=== PATIENT | female | born 1960 | race Caucasian/White ===

== ENCOUNTER 2017-06-19 09:27 | Observation (INO) | payer MEDICARE, OTHER ==
[2017-06-19] MEDS ORDERED: ONDANSETRON 4 MG/2 ML VIAL IM STA (09:50)
--- NOTE | 2017-06-19 09:53 | ED ---
General Adult HPI - General Chief complaint: Psychiatric Symptoms Stated complaint: Anxiety, JOSEPH Time Seen by Provider: 06/19/17 09:35 Source: EMS, RN notes reviewed Mode of arrival: EMS Limitations: no limitations - History of Present Illness Initial comments: This is a 57 her old female presents emergency Department stating she's having suicidal ideations but is not suicidal. Patient states she is very nauseated and she believes secondary to the fact that she thinks someone is poisoning her apartment with some noxious smell. Patient states she has not vomited. Patient denies any pain. Patient denies any headache patient denies lightheadedness dizziness or near syncopal episode. Patient denies any difficulty breathing [place] of breath. Patient denies any recent fever chills or cough. - Related Data Home Medications Medication Instructions Recorded Confirmed Copper 1 tab PO HS 09/20/15 06/19/17 Citalopram Hydrobromide [CeleXA] 40 mg PO DAILY 06/19/17 06/19/17 Gabapentin 900 mg PO QID 06/19/17 06/19/17 carBAMazepine 200 mg PO BID 06/19/17 06/19/17 Allergies Allergy/AdvReac Type Severity Reaction Status Date / Time No Known Allergies Allergy Verified 06/19/17 10:37 Review of Systems ROS Statement: Those systems with pertinent positive or pertinent negative responses have been documented in the HPI. ROS Other: All systems not noted in ROS Statement are negative. Past Medical History Past Medical History: No Reported History Additional Past Medical History / Comment(s): DEGENERATIVE DISC DISEASE (LUMBAR ) WITH PAIN IN HER LEGS & WEAKNESS. WHEELCHAIR BOUND, CAN TRANSFER. History of Any Multi-Drug Resistant Organisms: None Reported Past Surgical History: Cholecystectomy, Hysterectomy, Orthopedic Surgery Additional Past Surgical History / Comment(s): Stomach ulcer surg x 2. Lt ACL replaced, PATIENT STATES BOTH ACL ARE "BLOWN OUT" FROM FALLS SHE HAS HAD. Past Anesthesia/Blood Transfusion Reactions: No Reported Reaction Past Psychological History: Anxiety, Depression Smoking Status: Former smoker Past Alcohol Use History: None Reported Past Drug Use History: None Reported - Past Family History Mother Family Medical History: No Reported History General Exam - General Exam Comments Initial Comments: GENERAL: Patient is well-developed and well-nourished. Patient is nontoxic and well- hydrated and is in no acute distress. ENT: Neck is soft and supple. No significant lymphadenopathy is noted. Oropharynx is clear. Moist mucous membranes. Neck has full range of motion without eliciting any pain. EYES: The sclera were anicteric and conjunctiva were pink and moist. Extraocular movements were intact and pupils were equal round and reactive to light. Eyelids were unremarkable. PULMONARY: Unlabored respirations. Good breath sounds bilaterally. No audible rales rhonchi or wheezing was noted. CARDIOVASCULAR: There is a regular rate and rhythm without any murmurs gallops or rubs. ABDOMEN: Soft and nontender with normal bowel sounds. No palpable organomegaly was noted. There is no palpable pulsatile mass. SKIN: Skin is clear with no lesions or rashes and otherwise unremarkable. NEUROLOGIC: Patient is alert and oriented x3. Cranial nerves II through XII are grossly intact. MUSCULOSKELETAL: Normal extremities with adequate strength and full range of motion. No lower extremity swelling or edema. No calf tenderness. LYMPHATICS: No significant lymphadenopathy is noted PSYCHIATRIC: Patient is very flat affect and she is tearful throughout the interview. Patient also states she is having suicidal thoughts but has had those for years. Patient denies any plan patient denies being suicidal. Limitations: no limitations Course Vital Signs 06/19/17 09:34 Temperature 97.8 F Pulse Rate 72 Respiratory 18 Rate Blood Pressure 126/69 O2 Sat by Pulse 100 Oximetry Medical Decision Making - Medical Decision Making Labs are drawn because the patient was going to be transferred to a psychiatric facility. Patient's labs came back with a low hemoglobin and no previous paperwork stated she was anemic we got a hemoglobin from the [facility] in October in the patient's hemoglobin was 12.1. Because of this loss of blood we are going to admit the patient and consult to psychiatry - Lab Data Result diagrams: 06/19/17 12:03 06/19/17 12:03 Lab Results 06/19/17 06/19/17 Range/Units 12:03 12:03 WBC 7.4 (3.8-10.6) k/uL RBC 4.04 (3.80-5.40) m/uL Hgb 7.5 L (11.4-16.0) gm/dL Hct 26.9 L (34.0-46.0) % MCV 66.6 L (80.0-100.0) fL MCH 18.5 L (25.0-35.0) pg MCHC 27.8 L (31.0-37.0) g/dL RDW 19.2 H (11.5-15.5) % Plt Count 467 H (150-450) k/uL Neutrophils % 51 % Lymphocytes % 39 % Monocytes % 5 % Eosinophils % 1 % Basophils % 1 % Neutrophils # 3.7 (1.3-7.7) k/uL Lymphocytes # 2.9 (1.0-4.8) k/uL Monocytes # 0.4 (0-1.0) k/uL Eosinophils # 0.1 (0-0.7) k/uL Basophils # 0.1 (0-0.2) k/uL Manual Slide Review Performed Polychromasia Present Hypochromasia Marked Poikilocytosis Slight Anisocytosis Slight Microcytosis Marked Sodium 139 (137-145) mmol/L Potassium 4.0 (3.5-5.1) mmol/L Chloride 109 H (98-107) mmol/L Carbon Dioxide 23 (22-30) mmol/L Anion Gap 7 mmol/L BUN 6 L (7-17) mg/dL Creatinine 0.50 L (0.52-1.04) mg/dL Est GFR (MDRD) Af Amer >60 (>60 ml/min/1.73 sqM) Est GFR (MDRD) Non-Af >60 (>60 ml/min/1.73 sqM) Glucose 102 H (74-99) mg/dL Calcium 8.5 (8.4-10.2) mg/dL Total Bilirubin <0.1 L (0.2-1.3) mg/dL AST 17 (14-36) U/L ALT 27 (9-52) U/L Alkaline Phosphatase 180 H (38-126) U/L Total Protein 5.4 L (6.3-8.2) g/dL Albumin 3.1 L (3.5-5.0) g/dL Disposition Clinical Impression: Suicidal ideation, Depression, Anemia Disposition: ADMITTED IP TO THIS HOSP Referrals: Krystal Villagran MD [REFERRING] - 1-2 days Time of Disposition: 14:38
[2017-06-19] MEDS ORDERED: ACETAMINOPHEN TAB 325 MG TAB PO STA (11:24)
[2017-06-19 12:27] LABS: Anisocytosis Slight; Basophils # (A) 0.1 k/uL (0-0.2); Basophils % (A) 1 %; CH 17.9; Eosinophils # (A) 0.1 k/uL (0-0.7); Eosinophils % (A) 1 %; HCT 26.9 % (34.0-46.0); HDW 3.86; HGB 7.5 gm/dL (11.4-16.0); Hypochromasia Marked; Luc # (Auto) 0.23; Luc % (Auto) 3; Lymphocytes # (A) 2.9 k/uL (1.0-4.8); Lymphocytes % (A) 39 %; MCH 18.5 pg (25.0-35.0); MCHC 27.8 g/dL (31.0-37.0); MCV 66.6 fL (80.0-100.0); Mean Platelet Volume 7.3; Microcytosis Marked; Monocytes # (A) 0.4 k/uL (0-1.0); Monocytes % (A) 5 %; Neutrophils # (A) 3.7 k/uL (1.3-7.7); Neutrophils % (A) 51 %; Poikilocytosis Slight; RBC 4.04 m/uL (3.80-5.40); RDW 19.2 % (11.5-15.5); WBC 7.4 k/uL (3.8-10.6); WBC (Perox) 7.69
[2017-06-19 12:39] LABS: Manual Review Performed
[2017-06-19 12:41] LABS: Polychromasia Present
[2017-06-19 13:17] LABS: ALT 27 U/L (9-52); AST 17 U/L (14-36); Alkaline Phosphatase 180 U/L (38-126); Anion Gap 7 mmol/L; Blood Urea Nitrogen 6 mg/dL (7-17); Calcium 8.5 mg/dL (8.4-10.2); Carbon Dioxide 23 mmol/L (22-30); Chloride 109 mmol/L (98-107); Glucose 102 mg/dL (74-99); Non-African American GFR(MDRD) >60 (>60 ml/min/1.73 sqM); Sodium 139 mmol/L (137-145); Total Bilirubin <0.1 mg/dL (0.2-1.3); Total Protein 5.4 g/dL (6.3-8.2)
[2017-06-19] MEDS ORDERED: SODIUM CHLORIDE 0.9% 1,000 ML IV ONE (14:41)
[2017-06-19] MEDS ORDERED: ONDANSETRON 4 MG/2 ML VIAL IVP STA (14:44)
[2017-06-19] MEDS ORDERED: traMADol 50 MG TAB PO STA (15:15)
[2017-06-19] MEDS: GABAPENTIN 300 MG CAP PO SCH (21:42)
[2017-06-19] MEDS: carBAMazepine 200 MG TAB PO SCH (21:44)
[2017-06-19] MEDS: ONDANSETRON 4 MG/2 ML VIAL IVP PRN (22:14)
[2017-06-20] MEDS: ONDANSETRON 4 MG/2 ML VIAL IVP PRN (05:23)
[2017-06-20 08:08] LABS: Anion Gap 6 mmol/L; Blood Urea Nitrogen 5 mg/dL (7-17); Calcium 8.1 mg/dL (8.4-10.2); Carbon Dioxide 24 mmol/L (22-30); Chloride 110 mmol/L (98-107); Glucose 98 mg/dL (74-99); Non-African American GFR(MDRD) >60 (>60 ml/min/1.73 sqM); Potassium 4.1 mmol/L (3.5-5.1); Sodium 140 mmol/L (137-145)
[2017-06-20 08:22] LABS: Anisocytosis Slight; Basophils % (A) 1 %; CH 17.9; CHCM 26.5; Eosinophils % (A) 1 %; HCT 26.3 % (34.0-46.0); HDW 3.74; HGB 7.4 gm/dL (11.4-16.0); Hypochromasia Marked; Luc # (Auto) 0.14; Luc % (Auto) 2; Lymphocytes # (A) 1.2 k/uL (1.0-4.8); Lymphocytes % (A) 21 %; MCH 19.1 pg (25.0-35.0); MCV 68.1 fL (80.0-100.0); Mean Platelet Volume 7.1; Microcytosis Marked; Monocytes # (A) 0.3 k/uL (0-1.0); Monocytes % (A) 6 %; Neutrophils # (A) 4.1 k/uL (1.3-7.7); Neutrophils % (A) 69 %; Poikilocytosis Slight; RBC 3.87 m/uL (3.80-5.40); WBC 5.9 k/uL (3.8-10.6); WBC (Perox) 6.07
[2017-06-20] MEDS: carBAMazepine 200 MG TAB PO SCH ×2 (08:55→21:02)
[2017-06-20] MEDS: GABAPENTIN 300 MG CAP PO SCH ×4 (08:55→21:02)
[2017-06-20] MEDS ORDERED: CITALOPRAM HYDROBROMIDE 20 MG TAB PO SCH (09:00)
[2017-06-20] MEDS ORDERED: ENOXAPARIN 40 MG/0.4 ML SYRINGE SQ SCH (09:00)
[2017-06-20] MEDS: ACETAMINOPHEN TAB 325 MG TAB PO PRN ×2 (09:57→21:05)
--- NOTE | 2017-06-20 10:18 | P.CONS ---
History of Present Illness - Reason for Consult Consult date: 06/20/17 Anemia Requesting physician: Trey Tinsley - History of Present Illness 57-year-old female presents to the ER was suicidal ideations, nausea. Patient thinks someone is "poisoning" her. Admission hemoglobin 7.5. MCV 66. Platelet 467. BUN 6. Creatinine 0.5. Platelet 467. Past medical history of peptic ulcer disease requiring surgery x 2. "I have one third of my stomach left". Last colonoscopy more than 5 years ago. Last EGD several years ago. She's noticed red blood in her stool intermittently over the last few weeks with minimal abdominal discomfort. Denies hematemesis or melena. No NSAIDs or aspirin or alcohol. No weight loss. Upon review of medical records no other CBCs to review for baseline comparison. Review of Systems Constitutional: Denies fever, chills, sweats, weight gain, or loss. HEENT: Negative for migraines, blurred vision or loss, earaches, drainage, tinnitus, oral mucosal lesions, dysphagia, or odynophagia. CARDIAC: Negative for chest pain, arrhythmias, or palpitation. RESPIRATORY: Negative for shortness of breath, hemoptysis, cough, or sputum production. GI: See HPI for pertinent findings. : Negative for hematuria, urgency, frequency, polyuria, or dysuria. GYNc: Denies possibility of . Negative vaginal discharge. MUSCULOSKELETAL: Degenerative disc disease. Negative for muscle aches, swelling , arthritis, and arthralgias. NEUROLOGIC: Negative for stroke or TIA. ENDOCRINE: Negative for thyroid problems. SKIN: Negative for rash or itching. PSYCHIATRIC: Anxiety. Depression. All systems: negative (See HPI) Past Medical History Past Medical History: COPD Additional Past Medical History / Comment(s): DEGENERATIVE DISC DISEASE (LUMBAR ) WITH PAIN IN HER LEGS & WEAKNESS. WHEELCHAIR BOUND, CAN TRANSFER, stomach ulcers History of Any Multi-Drug Resistant Organisms: None Reported Past Surgical History: Cholecystectomy, Hysterectomy, Orthopedic Surgery Additional Past Surgical History / Comment(s): Stomach ulcer surg x 2. Lt ACL replaced, PATIENT STATES BOTH ACL ARE "BLOWN OUT" FROM FALLS SHE HAS HAD. Past Anesthesia/Blood Transfusion Reactions: Previous Problems w/ Anesthesia Additional Past Anesthesia/Blood Transfusion Reaction / Comm: Difficulty waking up after surgery Past Psychological History: Anxiety, Depression Smoking Status: Former smoker Past Alcohol Use History: None Reported Additional Past Alcohol Use History / Comment(s): SMOKED SINCE SHE WAS 17 YR. PPD: 1.5 Past Drug Use History: None Reported - Past Family History Mother Family Medical History: No Reported History Medications and Allergies Home Medications Medication Instructions Recorded Confirmed Type Copper 1 tab PO HS 09/20/15 06/19/17 History Citalopram Hydrobromide [CeleXA] 40 mg PO DAILY 06/19/17 06/19/17 History Gabapentin 900 mg PO QID 06/19/17 06/19/17 History carBAMazepine 200 mg PO BID 06/19/17 06/19/17 History Allergies Allergy/AdvReac Type Severity Reaction Status Date / Time No Known Allergies Allergy Verified 06/19/17 10:37 Physical Exam Vitals: Vital Signs Temp Pulse Pulse Resp BP BP Pulse Ox 06/20/17 07:00 98.4 F 70 18 118/69 98 06/19/17 23:00 97.0 F L 78 16 122/57 98 06/19/17 17:32 97.3 F L 72 16 132/76 98 06/19/17 16:47 97.9 F 74 16 123/75 99 06/19/17 15:00 97.8 F 72 16 115/67 98 06/19/17 09:34 97.8 F 72 18 126/69 100 Intake and Output 06/19/17 06/20/17 06/20/17 22:59 06:59 14:59 Output Total 2 1 Balance -2 -1 Output: Emesis 2 1 Other: # Voids 1 2 Weight 111 kg General appearance: The patient is alert, oriented, in no acute distress. HET: Head is normocephalic and atraumatic. Pupils are equal and reactive. Oropharynx is clear without lesions. Neck: Supple without lymphadenopathy. Trachea midline. Heart: S1 S2. Regular rate and rhythm. Lungs: No crackles or wheezes are heard. Abdomen: Soft, nontender, nondistended with bowel sounds. No peritoneal signs. No palpable organomegaly or masses. Extremities: Normal skin color and turgor. No cyanosis, rash, ulceration, clubbing, or edema. Radial and pedal pulses are 2/4 bilaterally. Neurological: No focal deficits. Strength and sensation are grossly intact. Results CBC & Chem 7: 06/20/17 07:10 06/20/17 07:10 Labs: Abnormal Lab Results - Last 24 Hours (Table) 06/19/17 06/19/17 Range/Units 12:03 12:03 Hgb 7.5 L (11.4-16.0) gm/dL Hct 26.9 L (34.0-46.0) % MCV 66.6 L (80.0-100.0) fL MCH 18.5 L (25.0-35.0) pg MCHC 27.8 L (31.0-37.0) g/dL RDW 19.2 H (11.5-15.5) % Plt Count 467 H (150-450) k/uL Chloride 109 H (98-107) mmol/L BUN 6 L (7-17) mg/dL Creatinine 0.50 L (0.52-1.04) mg/dL Glucose 102 H (74-99) mg/dL Total Bilirubin <0.1 L (0.2-1.3) mg/dL Alkaline Phosphatase 180 H (38-126) U/L Total Protein 5.4 L (6.3-8.2) g/dL Albumin 3.1 L (3.5-5.0) g/dL Assessment and Plan (1) Microcytic anemia Narrative/Plan: Symptomatic microcytic anemia possible component of acute blood loss iron deficiency Status: Acute (2) History of gastric surgery Status: Chronic (3) History of peptic ulcer disease Status: Chronic Plan: 1. Protonix 40 mg daily. Iron indices. 2. EGD colonoscopy evaluation. 3. CBC monitoring. The upholsterer inside has discussed the risks, benefits and alternative therapies for the above-mentioned procedure and for both sedation/analgesia as well as necessary blood product administration, if indicated, as they pertain to this patient. The patient has indicated understanding and acceptance of the risks and procedures discussed. Thank you for this kind referral and the opportunity to participate in the care of your patient. This consultation was discussed with Dr. Frias. The impression and plan of care have been directed as dictated.
[2017-06-20 10:27] LABS: Manual Review Performed
[2017-06-20 10:28] LABS: Polychromasia Present
[2017-06-20 12:16] LABS: Iron <10 ug/dL (37-170)
[2017-06-20 12:29] LABS: % Iron Saturation <2.6 % (20-50); Total Iron Binding Capacity 380 ug/dL (265-497)
--- NOTE | 2017-06-20 13:07 | P.HPIM ---
History of Present Illness H&P Date: 06/20/17 Chief Complaint: Abdominal pain History of presenting complaint: This is a very pleasant 57-year-old patient whose chronic stable medical conditions include COPD, peptic ulcer disease, chronic constipation,. Patient is pretty much wheelchair bound and has a diagnosis of some sort of myelopathy by a neurologist out of [facility]. Patient also takes medication for copper deficiency. Patient's chronic pain in his lower extremity knee down and also gets intermittent headaches. Patient feels miserable at times rather depressed and sometimes and sometimes suicidal. Patient presents with abdominal pain diffuse for last few days with some nausea and vomiting. Denies any fever. Has a bowel movement every 2 or 3 days. 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 All this as up to her feeling miserable and depressed. GEN.: Tired EYES: None HEENT: Chronic intermittent headache NECK: None RESPIRATORY: None CARDIOVASCULAR: None GASTROINTESTINAL: As above] GENITOURINARY: None MUSCULOSKELETAL: Chronic pain in the joints] LYMPHATICS: None HEMATOLOGICAL: None PSYCHIATRY: Anxiety depressed NEUROLOGICAL: Numbness and tingling lower extremity, weakness in the legs Past medical history: COPD, gait dysfunction wheelchair bound, peptic ulcer disease, chronic constipation, anxiety depression, chronic ACL disease, chronic headaches, Past surgical history: Cholecystectomy, hysterectomy, left ACL replaced Patient's social history Ex-smoker. No alcohol. Lives alone. Home medications: Reviewed in the computer ALLERGIES: None VITAL SIGNS: 97.8, 72, 18, 126/69, 100% room air GENERAL: Average built, sitting up, tired appearing. EYES: Pupils equal. Conjunctiva normal. HEENT: External appearance of nose and ears normal, oral cavity grossly normal, wasting of temporal muscles. NECK: JVD not raised; masses not palpable. HEART: First and second heart sounds are normal; no edema. LUNGS: Respiratory rate normal; decreased breath sounds. ABDOMEN: Soft, mild tenderness, liver spleen not palpable, no masses palpable. LYMPHATICS: No lymph nodes palpable in the axilla and neck. PSYCH: [Alert and oriented x3; mood and affect very anxious appearing l. NEUROLOGICAL: [Cranial nerves grossly intact; no facial asymmetry, power and lower extremity 4/5, slightly decreased sensation Investigations: White count 7.4, hemoglobin 7.5 MCV 66.6 platelets 467 potassium 4.0 Assessment: -Acute exacerbation of peptic ulcer disease in a patient who takes Excedrin for headaches -Major depressive disorder, recurrent with suicidal ideation -COPD in an ex-smoker -Chronic gait dysfunction patient is wheelchair-bound -Chronic constipation on laxatives -Microcytic anemia could be from iron deficiency Plan: Psychiatry and GI consulted. Patient put on PPIs. Care was discussed with the patient. Patient has a sitter. We'll send off iron studies. Discussed with the patient about mindfulness she is open to look into that. Patient may benefit from inpatient psychiatry. Past Medical History Past Medical History: COPD Additional Past Medical History / Comment(s): DEGENERATIVE DISC DISEASE (LUMBAR ) WITH PAIN IN HER LEGS & WEAKNESS. WHEELCHAIR BOUND, CAN TRANSFER, stomach ulcers History of Any Multi-Drug Resistant Organisms: None Reported Past Surgical History: Cholecystectomy, Hysterectomy, Orthopedic Surgery Additional Past Surgical History / Comment(s): Stomach ulcer surg x 2. Lt ACL replaced, PATIENT STATES BOTH ACL ARE "BLOWN OUT" FROM FALLS SHE HAS HAD. Past Anesthesia/Blood Transfusion Reactions: Previous Problems w/ Anesthesia Additional Past Anesthesia/Blood Transfusion Reaction / Comment(s): Difficulty waking up after surgery Past Psychological History: Anxiety, Depression Smoking Status: Former smoker Past Alcohol Use History: None Reported Additional Past Alcohol Use History / Comment(s): SMOKED SINCE SHE WAS 17 YR. PPD: 1.5 Past Drug Use History: None Reported - Past Family History Mother Family Medical History: No Reported History Medications and Allergies Home Medications Medication Instructions Recorded Confirmed Type Copper 1 tab PO HS 09/20/15 06/19/17 History Citalopram Hydrobromide [CeleXA] 40 mg PO DAILY 06/19/17 06/19/17 History Gabapentin 900 mg PO QID 06/19/17 06/19/17 History carBAMazepine 200 mg PO BID 06/19/17 06/19/17 History Allergies Allergy/AdvReac Type Severity Reaction Status Date / Time No Known Allergies Allergy Verified 06/19/17 10:37 Results CBC & Chem 7: 06/20/17 07:10 06/20/17 07:10
--- NOTE | 2017-06-20 14:13 | P.CN ---
Psychiatric Consult - . Consult date: 06/20/17 Consult:: 06/20/17 13:41 Identification and Reason for Consult: Patient is a 57-year-old female who was admitted for anemia, she was seen in the emergency room where she voiced suicidal ideation with a plan of hanging herself. Consult was requested for assessment of her suicidal ideation. Patient's chart was reviewed and the patient was seen in her room and no family members were present. History of Present Illness: Patient is a 57-year-old female who was diagnosed with copper deficiency myeloneuropathy at the [facility] and has been treated with copper supplementation. Patient states when she was diagnosed in 2013 the neurologist began her on Celexa at 20 mg a day which she has continued to take until January of this year when it was increased to 40 mg. Patient states that at that time the neurologist told her that her condition was permanent and there would be no improvement in her condition. Patient states that she uses a wheelchair at home, is able to transfer but is not able to walk with a walker. Patient states that she was in rehab in January 2015 at the [facility] and when she was there she was able to walk with a walker and do so at home for a brief period of time. Patient states she has been depressed about the permanence of her condition as well as the amount of pain that she is in. Patient states that she has burning, twisting, stabbing pain in her legs and that she gets no relief and feels that no one has listened or assisted her. Patient states that she was re-seen by rehab yet the [facility] in February or March of this year and they reported that they could not readmit her for inpatient rehabilitation nor did they make any recommendations for the patient. Patient states that she did make suicidal statements, that she would hang herself in a closet but states that she doesn't want to and has had this plan for several months in response to her pain. Patient states that she has too much to live for a new [id number] and 2 grandchildren. Patient states that she had no intention to act on any statements but made them to get people to pay attention to her and assist her with her pain control. Patient states that she has been treated for depression in the past around the time of her divorce in the early . She states at that time she was on Elavil for several months. This followed an inpatient admission with an overdose of pills at the time of her divorce. Patient states that she has not been sleeping well at night and reports constant headaches and has not been eating well. She states that she is really not been caring for her ADLs as she has in the past. She states that she does not spend the day in bed but does get up. Patient lives alone and states that she does have assistance in the house with her cleaning and laundry and her brother assists her with her shopping. She states she has no friends that she socializes with and spends most of her time reading or listening to music. Patient states that she's had little interest to do much due to the pain. Patient is not able to endorse any symptoms of yolis, or psychosis Past Psychiatric History: Patient has had 3 prior inpatient psychiatric admissions one in 1980 and another in 1981 for depression with no suicidal ideation or attempts in response to the of her father patient states she had great difficulty coping with. Patient states her third admission was in 1989 after she took an overdose of pills in response to her divorce. Patient states she was treated with Elavil for 6 months following that she is uncertain if she was on another medication or not. Patient was started on Celexa 20 mg in 2013 at the time of her diagnosis and has continued taking it until it was increased to 40 mg in January due to an increase in her reports of depression after being told her condition was permanent. Patient states that she had a therapist coming to her home 2 years ago but she did not like the therapist and did not continue with her. Past Medical/Surgical History: Patient has a history of copper deficiency myeloneuropathy, history of gastric ulcers and she states that she has had a partial gastrectomy. Patient also has a history of GERD, headaches. She states that she has had an ACL repair, cholecystectomy and hysterectomy. Home Medications Medication Instructions Recorded Confirmed Copper 1 tab PO HS 09/20/15 06/19/17 Citalopram Hydrobromide [CeleXA] 40 mg PO DAILY 06/19/17 06/19/17 Gabapentin 900 mg PO QID 06/19/17 06/19/17 carBAMazepine 200 mg PO BID 06/19/17 06/19/17 Family History: Patient is unaware of any psychiatric history in her family, any drug or alcohol use in her family and no completed suicides. Social History: Patient was born and raised in [place] and states that both of her parents are , her father's in the early especially difficult for the patient to cope with. Patient states that she had 2 admissions to a psychiatric hospital at this time. Patient has 2 brothers one of whom lives close to her in [place] and the other lives in [place]. 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 She has 2 sons one of whom lives in [place] and was recently and the patient is excited to meet his and HER-2 children. Patient's other son lives in [place]. Patient worked until 2008 and due to stomach surgery at that time she retired. She lives alone and is supported on Social Security. She has assistance with her cleaning and laundry and her brother does assist her with her shopping. Patient states that she does cook for herself and pays her bills. Patient spends her time reading and listening to music. Substance Use History: Patient denies any prior alcohol use or drug use and the patient quit using tobacco. Legal History: Patient denies any legal history Mental Status:Appearance/Attitude: Patient is sitting in a hospital bed and is no acute distress, made good eye contact and was cooperative. Behavior: Patient did not display any psychomotor agitation or retardation. Speech/Language: Patient's speech was spontaneous and of normal volume and rhythm and she was coherent. Thought Process: Patient was goal-directed, there is no evidence of circumstantial or tangential thought and no loose associations or flight of ideas. Thought Content: Patient denied any current auditory or visual hallucinations, and noted paranoid ideation or delusional ideation was elicited. Patient denied any racing thoughts. Patient reported that she is in constant pain and feels that no one has listened to her or assisted her and states since she was told her condition was permanent in January has felt increasingly depressed. Patient states that she has not been eating well at home and has not been sleeping well at home. She reports that this has not improved with the increase in her Celexa. Patient states that she voiced suicidal ideation to get attention and have people assist her, when I questioned her response this morning to the nurse that she initially said she was doing well and then later when she had a headache reported that she was having suicidal thoughts with a plan to hang herself the patient said she did this to get attention and help as no one has been assisting her. Suicidal/Homicidal Ideation: Patient states that she did have a plan to use a sheet to hang herself in her closet but states she does not want to and looks forward to meeting her new [id number] and 2 new grandchildren, patient states that she feels no one has been listening to her and this is why she made the statements. Patient denies any homicidal ideation at this time. Sensorium/Cognition: Patient is alert and oriented to person, place, and time and her memory is grossly intact. Mood/Affect: Patient's mood is depressed, her affect is appropriate. Insight/Judgement: Patient's insight and judgment are fair. Assessment: Patient presents with a chronic neuropathy that has caused the patient to need to use a wheelchair and is unable to walk with a walker or stand for long periods of time. Patient states that she has been depressed and she was told in January that her condition was permanent and would not improve. Patient has not responded to the Celexa being increased in January to 40 mg a day. Patient states that she has had suicidal thoughts of hanging herself in her closet, but she had no intention to act on these stating that she has too much to live for and does not want to . She states that she made these statements to get people's attention because she thinks no one has been paying attention to her complaints of pain. Laboratory Last Values WBC 5.9 k/uL (3.8-10.6) 06/20/17 07:10 RBC 3.87 m/uL (3.80-5.40) 06/20/17 07:10 Hgb 7.4 gm/dL (11.4-16.0) L 06/20/17 07:10 Hct 26.3 % (34.0-46.0) L 06/20/17 07:10 MCV 68.1 fL (80.0-100.0) L 06/20/17 07:10 MCH 19.1 pg (25.0-35.0) L 06/20/17 07:10 MCHC 28.0 g/dL (31.0-37.0) L 06/20/17 07:10 RDW 19.0 % (11.5-15.5) H 06/20/17 07:10 Plt Count 469 k/uL (150-450) H 06/20/17 07:10 Neutrophils % 69 % 06/20/17 07:10 Lymphocytes % 21 % 06/20/17 07:10 Monocytes % 6 % 06/20/17 07:10 Eosinophils % 1 % 06/20/17 07:10 Basophils % 1 % 06/20/17 07:10 Neutrophils # 4.1 k/uL (1.3-7.7) 06/20/17 07:10 Lymphocytes # 1.2 k/uL (1.0-4.8) 06/20/17 07:10 Monocytes # 0.3 k/uL (0-1.0) 06/20/17 07:10 Eosinophils # 0.0 k/uL (0-0.7) 06/20/17 07:10 Basophils # 0.0 k/uL (0-0.2) 06/20/17 07:10 Manual Slide Review Performed 06/20/17 07:10 Polychromasia Present 06/20/17 07:10 Hypochromasia Marked 06/20/17 07:10 Poikilocytosis Slight 06/20/17 07:10 Anisocytosis Slight 06/20/17 07:10 Microcytosis Marked 06/20/17 07:10 Sodium 140 mmol/L (137-145) 06/20/17 07:10 Potassium 4.1 mmol/L (3.5-5.1) 06/20/17 07:10 Chloride 110 mmol/L (98-107) H 06/20/17 07:10 Carbon Dioxide 24 mmol/L (22-30) 06/20/17 07:10 Anion Gap 6 mmol/L 06/20/17 07:10 BUN 5 mg/dL (7-17) L 06/20/17 07:10 Creatinine 0.49 mg/dL (0.52-1.04) L 06/20/17 07:10 Est GFR (MDRD) Af Amer >60 (>60 ml/min/1.73 sqM) 06/20/17 07:10 Est GFR (MDRD) Non-Af >60 (>60 ml/min/1.73 sqM) 06/20/17 07:10 Glucose 98 mg/dL (74-99) 06/20/17 07:10 Calcium 8.1 mg/dL (8.4-10.2) L 06/20/17 07:10 Iron <10 ug/dL (37-170) L 06/20/17 07:10 TIBC 380 ug/dL (265-497) 06/20/17 07:10 % Saturation <2.6 % (20-50) L 06/20/17 07:10 Total Bilirubin <0.1 mg/dL (0.2-1.3) L 06/19/17 12:03 AST 17 U/L (14-36) 06/19/17 12:03 ALT 27 U/L (9-52) 06/19/17 12:03 Alkaline Phosphatase 180 U/L (38-126) H 06/19/17 12:03 Total Protein 5.4 g/dL (6.3-8.2) L 06/19/17 12:03 Albumin 3.1 g/dL (3.5-5.0) L 06/19/17 12:03 Urine Opiates Screen Not Detected (NotDetected) 06/19/17 16:10 Ur Oxycodone Screen Not Detected (NotDetected) 06/19/17 16:10 Urine Methadone Screen Not Detected (NotDetected) 06/19/17 16:10 Ur Propoxyphene Screen Not Detected (NotDetected) 06/19/17 16:10 Ur Barbiturates Screen Not Detected (NotDetected) 06/19/17 16:10 U Tricyclic Antidepress Not Detected (NotDetected) 06/19/17 16:10 Ur Phencyclidine Scrn Not Detected (NotDetected) 06/19/17 16:10 Ur Amphetamines Screen Not Detected (NotDetected) 06/19/17 16:10 U Methamphetamines Scrn Not Detected (NotDetected) 06/19/17 16:10 U Benzodiazepines Scrn Not Detected (NotDetected) 06/19/17 16:10 Urine Cocaine Screen Not Detected (NotDetected) 06/19/17 16:10 U Marijuana (THC) Screen Not Detected (NotDetected) 06/19/17 16:10 Diagnosis: Major depressive disorder, single episode, moderate Plan: Patient and I discussed that her making suicidal statements was not an appropriate way to ask for help or for her relief of her pain. Patient and I also discussed that since the Celexa has not been beneficial to her that I would consider a trial of Cymbalta. I reviewed the use and side effects of the medication with the patient and she was agreeable to a trial of this stating that it been tried and she was in rehab in January 2015 for pain relief. Patient will be decreased to Celexa 20 mg for 3 days and then will be discontinued and she will begin Cymbalta 30 mg daily beginning tomorrow. Patient stated that she had no intention to act on her suicidal statements, states she has too much to live for and does not want to and I discussed with her stopping the sitter. I also discussed with the patient considering to have home health psychiatric care see her for therapy and evaluation of her response to medications and she was agreeable to this. She states that she had tried in the past but did not like the counselor. Patient also discussed with me that her family and she have discussed her going into an assisted living program and the patient was amenable to this. Patient will be followed while she is in the hospital and will assess once she is medically stable whether she requires inpatient psychiatric care. 06/20/17 14:09
[2017-06-20] MEDS ORDERED: PEG 3350-NA SULF,BICARB,CL/KCL 4,000 ML BOTTLE PO ONE (15:00)
[2017-06-20] MEDS: FAMOTIDINE 20 MG TAB PO SCH ×2 (17:35→21:02)
[2017-06-21 09:00] LABS: Anisocytosis Slight; Basophils % (A) 1 %; CH 17.7; CHCM 26.2; Eosinophils # (A) 0.1 k/uL (0-0.7); Eosinophils % (A) 2 %; HCT 22.9 % (34.0-46.0); HDW 3.66; Hypochromasia Marked; Luc # (Auto) 0.15; Luc % (Auto) 3; Lymphocytes # (A) 1.7 k/uL (1.0-4.8); Lymphocytes % (A) 36 %; MCH 18.4 pg (25.0-35.0); MCHC 26.9 g/dL (31.0-37.0); MCV 68.2 fL (80.0-100.0); Mean Platelet Volume 7.1; Microcytosis Marked; Monocytes # (A) 0.4 k/uL (0-1.0); Monocytes % (A) 9 %; Neutrophils # (A) 2.3 k/uL (1.3-7.7); Neutrophils % (A) 50 %; Poikilocytosis Slight; RBC 3.36 m/uL (3.80-5.40); WBC 4.6 k/uL (3.8-10.6); WBC (Perox) 4.55
[2017-06-21 09:11] LABS: HGB 6.2 gm/dL (11.4-16.0)
[2017-06-21 09:26] LABS: Anion Gap 7 mmol/L; Blood Urea Nitrogen 5 mg/dL (7-17); Calcium 7.5 mg/dL (8.4-10.2); Carbon Dioxide 25 mmol/L (22-30); Chloride 110 mmol/L (98-107); Glucose 85 mg/dL (74-99); Non-African American GFR(MDRD) >60 (>60 ml/min/1.73 sqM); Potassium 3.5 mmol/L (3.5-5.1); Sodium 142 mmol/L (137-145)
[2017-06-21 10:43] LABS: Manual Review Performed
[2017-06-21] MEDS ORDERED: LIDOCAINE 1% INJ 10MG/ML (20 ML MDV) ONE (12:58)
[2017-06-21] MEDS ORDERED: PROPOFOL 10 MG/ML 20 ML VIAL IV ONE (12:58)
[2017-06-21] MEDS ORDERED: IV FLUID CONTINUATION 1,000 ML IV ONE (13:03)
--- NOTE | 2017-06-21 13:46 | P.PCN ---
Date of Procedure: 06/21/17 Preoperative Diagnosis: Postoperative Diagnosis: Procedure(s) Performed: Brief history: Patient is a pleasant 57-year-old white female, admitted to the hospital with severe symptomatic anemia and hemoglobin of 6.2 requiring 2 units of blood transfusion. She is scheduled for an upper endoscopy as well as colonoscopy as a part of evaluation of iron deficiency anemia. The patient is status post partial gastrectomy in 2010 for perforated peptic ulcer disease. Procedure performed: Esophagogastroduodenoscopy with biopsy Colonoscopy Preoperative diagnosis: Symptomatic iron deficiency anemia Anesthesia: MAC Procedure: After informed consent was obtained from the patient was brought into the endoscopy unit and IV sedation was administered by anesthesia under continuous monitoring. Initially upper endoscopy was done. The Olympus GF 160 video endoscope was inserted inserted into the mouth and esophagus intubated without any difficulty and was gradually advanced into the stomach . There was evidence of distal antral antrectomy and anastomosis appeared normal. Also there was a gastric jejunal anastomosis in the proximal stomach and anastomosis appeared slightly erythematous with mucosal friability but no ulcerations seen. The scope at this time was advanced through this anastomosis into the proximal jejunum that appeared normal. Biopsies were done from the jejunum to rule out celiac disease. The scope was then withdrawn into the stomach adequately insufflated with air and upon careful examination body, of the stomach and gastritis and biopsies were done from this area. The cardia and fundus appeared normal. There was small amount of retained food noted in the proximal stomach. The scope was then withdrawn into the esophagus. The GE junction was located at 40 cm to the incisors. It appeared regular with no erythema erosions or ulcerations. Rest of the esophagus appeared normal. Patient tolerated the procedure well. At this time the patient continued to remain sedation. Initial digital rectal examination was normal. Olympus CF 160 video colonoscope was then inserted into the rectum and gradually advanced to the cecum moderate to severe difficulty. Careful examination was performed as the scope was gradually being withdrawn. The prep was excellent. The cecum, ascending colon, transverse colon, descending colon, sigmoid colon and rectum appeared normal. Diffuse scattered diverticulosis seen. Retroflexion was performed in the rectum and no lesions were noted. Patient tolerated the procedure well. Impression: 1. Upper endoscopy revealed evidence of distal antrectomy and gastrojejunal anastomosis. Mild gastritis of the gastric remnant 2. Colonoscopy revealed diffuse scattered diverticulosis but no evidence of colitis or colorectal neoplasia. Recommendations: Findings of this examination were discussed with the patient. She was advised to follow with the biopsy results. She can be started on iron supplements, continue on Protonix 40 mg daily. Most likely the iron deficiency anemia is from poor absorption from previous gastric surgeries. She will be started on regular diet. Implants: Indications for Procedure: Operative Findings: Description of Procedure:
[2017-06-21] MEDS: carBAMazepine 200 MG TAB PO SCH ×2 (15:08→21:11)
[2017-06-21] MEDS: GABAPENTIN 300 MG CAP PO SCH ×4 (15:13→21:11)
[2017-06-21] MEDS: DULoxetine HCL 30 MG CAPSULE.DR PO SCH (15:13)
[2017-06-21] MEDS: CITALOPRAM HYDROBROMIDE 20 MG TAB PO SCH (15:14)
[2017-06-21] MEDS: FAMOTIDINE 20 MG TAB PO SCH ×2 (15:14→21:11)
[2017-06-21 16:30] LABS: Anisocytosis Moderate; CH 19.8; CHCM 27.8; HCT 27.7 % (34.0-46.0); HDW 4.34; HGB 7.6 gm/dL (11.4-16.0); Hypochromasia Marked; MCH 19.5 pg (25.0-35.0); MCHC 27.4 g/dL (31.0-37.0); MCV 71.1 fL (80.0-100.0); Mean Platelet Volume 7.2; Microcytosis Marked; Poikilocytosis Moderate; RBC 3.89 m/uL (3.80-5.40); RDW 21.2 % (11.5-15.5); WBC (Perox) 5.33
--- NOTE | 2017-06-21 17:27 | P.PN ---
Progress Note - Text Interval History: Patient is a 57-year-old female who was seen in consultation and is being seen for follow-up today. Patient reports that she is continuing to have pain, but stated to me that she is not feeling suicidal, has not voiced any suicidal statements to anyone. Patient reports that she still feels depressed, is not having any side effects from the Cymbalta. Patient states that she is not having any suicidal ideation and does not want to . Mental Status: Appearance/Attitude: Patient is sitting in her hospital bed in no acute distress, making good eye contact and was cooperative. Behavior: Patient does not display any psychomotor agitation or retardation. Speech/Language: Patient's speech is spontaneous, of normal volume and rhythm and she is coherent. Thought Process: Patient is goal-directed and there is no evidence of circumstantial or tangential thought and no loose associations or flight of ideas. Thought Content: Patient denies any auditory or visual hallucinations no delusions or paranoia were elicited. Patient stated that she is not making any suicidal statements, states she does not want to and states that she sees that her comments to get attention or inappropriate. Patient reports that she is still in pain but reported that she is not feeling as hopeless. Suicidal/Homicidal Ideation: Patient denied any current suicidal or homicidal ideation. Sensorium/Cognition: Patient is alert and oriented to person, place, and time and her memory is grossly intact. Mood/Affect: Patient's mood is depressed and her affect is appropriate. Insight/Judgement: Patient's insight and judgment are fair. Assessment: Patient was just begun on Cymbalta 30 mg this morning, her Celexa was decreased and will be discontinued after 3 days. Patient is not reporting any suicidal ideation and states that she is not making suicidal statements to get people's attention and sees that this was not appropriate behavior. Plan: Patient will continue on Cymbalta 30 mg in the morning, her Celexa will be discontinued and I will return to evaluate the patient and adjust the dose of Cymbalta as needed to address her depression.
--- NOTE | 2017-06-21 18:06 | P.PN ---
<Dinorah Brower - Last Filed: 06/21/17 17:18> Progress Note - Text DATE OF SERVICE: 06/21/2017 PRESENTING COMPLAINT: Abdominal pain INTERVAL HISTORY: 57-year-old female presented with abdominal pain some nausea and vomiting over the previous few days. Patient also has some myelopathy issues, with poor pain control and poor mobility, and this has caused her to feel depressed with some suicidal ideation, which she verbalized on admission. 06/21/2017: Patient scheduled with GI for an EGD colonoscopy today. Continues to be nothing by mouth. Anxious appearing fidgety but cooperative. Psychiatry was initiated Cymbalta while tapering Celexa, discussion was had regarding sitter at the bedside patient no longer feels suicidal. Nor, She feels sitter as necessary. REVIEW OF SYSTEMS: Done for constitutional ,cardiovascular, GI, pulmonary , psychiatry with relevant findings as above. CURRENT MEDICATIONS Tylenol, Tegretol, Celexa, Cymbalta, Lovenox, Pepcid, Neurontin, copper, Zofran, PHYSICAL EXAM VITAL SIGNS: 97.1, pulse 78, respiratory rate 18, blood pressure 122/68, oxygen saturation 99 %. GENERAL APPEARANCE: Lying in bed, appears tired. EYES: Pupils equal. Conjunctiva normal. NECK: JVD not raised. Mass not palpable. RESPIRATORY: Respiratory effort normal. Lungs clear to auscultation. CARDIOVASCULAR: First and second sounds normal. No edema. ABDOMEN: Soft. Liver and spleen not palpable. No tenderness. No mass palpable. PSYCHIATRY: Alert and oriented x3. Mood and affect somewhat anxious appearing. NEUROLOGICAL: Power and lower extremities 4/5 slightly decreased sensation bilaterally INVESTIGATIONS: Hemoglobin 7.6, EGD and colonoscopy: Gastritis with diverticulosis ASSESSMENT: -Acute exacerbation of peptic ulcer disease in a patient who takes Excedrin for headaches -Acute gastritis, with diverticulosis -Major depressive disorder, recurrent with suicidal ideation -COPD in an ex-smoker -Chronic gait dysfunction patient is wheelchair-bound -Chronic constipation on laxatives -Microcytic anemia could be from iron deficiency PLAN: Continue PPIs, psychiatry has seen the patient discontinued the sitter adjusted her medications tapering her off the Celexa over the next 3 days and then she' ll begin Cymbalta 30 mg daily. Await hemoglobin to determine if an additional unit of blood as needed. Likely discharge tomorrow we'll follow closely. 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 Tinsley <Trey Tinsley - Last Filed: 06/22/17 12:21> Progress Note - Text Attending note. Date of service-06/21/2017 This patient was seen and examined by me . Discussed the patient with my nurse practitioner Ms. Brower. Patient had EGD colonoscopy. Showed gastritis and diverticulosis. Patient here to get advice against not taking any aspirin. No further dark stools. Patient received a unit of blood. On examination: Abdomen-mild epigastric tenderness no guarding or rigidity. Investigations: Hemoglobin 7.6 Assessment and plan: Acute gastritis from excessive use of Excedrin in a patient with distal antrectomy and gastrojejunal and a stenosis Colonic diverticulosis Diet to advance as tolerated. We will check a hemoglobin the morning. Care was discussed with the patient. Cymbalta started by psychiatry.
[2017-06-21 18:14] LABS: Add Differential Manual Differential
[2017-06-21 18:16] LABS: Manual Review Performed; Nucleated Red Blood Cells 0 /100 WBC (0-0); Total Cells Counted 100
[2017-06-21 18:17] LABS: Hypersegmented Neutrophils Present; Ovalocytes Present; Polychromasia Present; Target Cells Present
[2017-06-21 19:07] LABS: Glucose,Whole Blood 105 mg/dL (75-99)
[2017-06-21 19:33] LABS: Creatine Kinase 159 U/L (30-135)
[2017-06-21 19:47] LABS: Creatine Kinase MB 1.1 ng/mL (0.0-2.4); Troponin I <0.012 ng/mL (0.000-0.034)
[2017-06-21] MEDS: COPPER PO SCH (23:16)
[2017-06-22 01:55] VITALS: PULSE 65
[2017-06-22 07:18] VITALS: BP 111/58; RESP 18; TEMP 97.9
[2017-06-22] MEDS: CITALOPRAM HYDROBROMIDE 20 MG TAB PO SCH (08:00)
[2017-06-22] MEDS: carBAMazepine 200 MG TAB PO SCH (08:00)
[2017-06-22] MEDS: DULoxetine HCL 30 MG CAPSULE.DR PO SCH (08:00)
[2017-06-22] MEDS: FAMOTIDINE 20 MG TAB PO SCH (08:00)
[2017-06-22] MEDS: GABAPENTIN 300 MG CAP PO SCH ×2 (08:01→12:05)
[2017-06-22 09:57] LABS: Anion Gap 7 mmol/L; Blood Urea Nitrogen 6 mg/dL (7-17); Calcium 7.9 mg/dL (8.4-10.2); Carbon Dioxide 23 mmol/L (22-30); Chloride 110 mmol/L (98-107); Glucose 91 mg/dL (74-99); Non-African American GFR(MDRD) >60 (>60 ml/min/1.73 sqM); Potassium 3.8 mmol/L (3.5-5.1); Sodium 140 mmol/L (137-145)
[2017-06-22 10:12] LABS: Anisocytosis Slight; Basophils % (A) 1 %; Eosinophils # (A) 0.1 k/uL (0-0.7); Eosinophils % (A) 2 %; HCT 26.4 % (34.0-46.0); HDW 4.39; HGB 7.4 gm/dL (11.4-16.0); Hypochromasia Marked; Luc # (Auto) 0.14; Luc % (Auto) 3; Lymphocytes # (A) 1.8 k/uL (1.0-4.8); Lymphocytes % (A) 36 %; MCH 19.7 pg (25.0-35.0); MCHC 27.9 g/dL (31.0-37.0); MCV 70.3 fL (80.0-100.0); Microcytosis Marked; Monocytes # (A) 0.3 k/uL (0-1.0); Monocytes % (A) 6 %; Neutrophils # (A) 2.7 k/uL (1.3-7.7); Neutrophils % (A) 52 %; Poikilocytosis Moderate; RBC 3.75 m/uL (3.80-5.40); RDW 19.9 % (11.5-15.5); WBC 5.1 k/uL (3.8-10.6); WBC (Perox) 5.02
[2017-06-22 11:06] LABS: Ovalocytes Present; Target Cells Present
--- NOTE | 2017-06-22 12:32 | P.DS ---
Providers Date of admission: 06/19/17 14:41 Expected date of discharge: 06/22/17 Attending physician: Trey Tinsley Consults: 06/19/17 14:41 Consult Physician Urgent Consulting Provider: Naomi Scott Consult Reason/Comments: Depression, suicidal ideation Do you want consulting provider notified?: Yes Consult Physician Urgent Consulting Provider: Yariel Frias Consult Reason/Comments: Anemia Do you want consulting provider notified?: Yes Primary care physician: Stated None Hospital Course: Final diagnoses: -Acute GI bleed from acute gastritis from excessive use of Excedrin and the patient will distal antrectomy and gastrojejunostomy -Colonic diverticulosis -Major depressive disorder, single episode -COPD in an ex-smoker -Chronic gait dysfunction patient is wheelchair-bound -Chronic constipation on laxatives -Microcytic anemia could be from iron deficiency Consultation: from psychiatry Dr. Jamison Nielson from GI Hospital course: Patient admitted with diffuse abdominal pain and nausea. It was discovered she takes about 100 Excedrin tablets for chronic lower pain. Lower extremity and back. She is followed up with neurology neurologist for that. 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 Did drop her hemoglobin was given a unit of blood. Patient hemoglobin stable at 7.4 at discharge. Patient told not to use Excedrin anymore. And to use Tylenol instead and limit to 2 g a day. Patient to establish with a family doctor. Medications were adjusted by psychiatry. Also discussed with patient about mindfulness.. Discharge planning more than 35 minutes. There is social was also involved in discharge planning. Plan - Discharge Summary New Discharge Prescriptions: New Acetaminophen Tab [Tylenol] 650 mg PO Q6HR PRN tab PRN Reason: Fever And/ Or Pain DULoxetine HCL [Cymbalta] 30 mg PO DAILY #30 cap Famotidine [Pepcid] 20 mg PO BID #60 tablet Continue Copper 1 tab PO HS Gabapentin 900 mg PO QID carBAMazepine 200 mg PO BID Discontinued Citalopram Hydrobromide [CeleXA] 40 mg PO DAILY Discharge Medication List Copper 1 tab PO HS 09/20/15 [History] Gabapentin 900 mg PO QID 06/19/17 [History] carBAMazepine 200 mg PO BID 06/19/17 [History] Acetaminophen Tab [Tylenol] 650 mg PO Q6HR PRN tab 06/22/17 [Rx] DULoxetine HCL [Cymbalta] 30 mg PO DAILY #30 cap 06/22/17 [Rx] Famotidine [Pepcid] 20 mg PO BID #60 tablet 06/22/17 [Rx] Follow up Appointment(s)/Referral(s): [facility], [NON-STAFF] - Nj El MD [STAFF PHYSICIAN] - 06/26/17 12:45 pm Grecia Nielson MD [STAFF PHYSICIAN] - 1 Week Ambulatory/Diagnostic Orders: Complete Blood Count w/diff [LAB.AMB] Time Frame: 3 Days, Location: Determined By Patient Patient Instructions/Handouts: Anemia (DC) Discharge Disposition: HOME WITH HOME HEALTH SERVICES
--- NOTE | 2017-06-22 20:40 | PN ---
DATE OF SERVICE: 06/22/17 The patient is a 57 -year-old pleasant lady admitted to the hospital with severe symptomatic anemia and hemoglobin of 6.2 requiring a unit of blood transfusion. She underwent an upper endoscopy yesterday that showed evidence of partial gastrectomy with gastritis of the gastric remnant and mild fibroid of the mucosa of the gastrojejunal anastomosis but no active bleeding seen. Colonoscopy revealed diverticulosis but no evidence of colorectal neoplasia. The patient is doing better this morning. No abdominal pain. Reports no nausea or vomiting. No change in bowel habits. On physical examination, appears comfortable in no apparent distress. Vital signs are stable. Blood pressure 101/63. Pulse rate 60. Temperature 97.3. HEENT: Unremarkable. Conjunctivae pink. Sclerae anicteric. Oral cavity no lesions. Neck no JVD or lymph node enlargement. Chest clear to auscultation. Heart regular rate and rhythm. Abdomen is soft. Bowel sounds positive. No organomegaly. Extremities no pedal edema. Skin no rashes. Neurological: Alert and oriented times three. No focal deficits. Labs: Done today, hemoglobin 7.6, WBC 5. Platelets are 400. IMPRESSION: Severe microcytic hypochromic anemia secondary to iron deficiency probably related to occult GI blood loss and possibility of poor iron absorption from previous partial gastrectomy, EGD and colonoscopy done yesterday as mentioned earlier. Status post one unit of blood, hemoglobin today 7.7. RECOMMENDATIONS: 1. Start iron supplement twice daily. 2. The patient can be discharged home with outpatient follow-up in two weeks. Thank you for this consultation. CHLOÉ
--- NOTE | 2017-06-24 16:43 | P.DS ---
Providers Date of admission: 06/19/17 14:41 Expected date of discharge: 06/24/17 Attending physician: Trey Tinsley Consults: 06/19/17 14:41 Consult Physician Urgent Consulting Provider: Naomi Scott Consult Reason/Comments: Depression, suicidal ideation Do you want consulting provider notified?: Yes Consult Physician Urgent Consulting Provider: Yariel Frias Consult Reason/Comments: Anemia Do you want consulting provider notified?: Yes Primary care physician: Stated None Hospital Course: FINAL DIAGNOSES: -Left anterior chest wall pain could be musculoskeletal -Recent admission for Acute GI bleed from acute gastritis from excessive use of Excedrin and the patient will distal antrectomy and gastrojejunostomy -Colonic diverticulosis -Major depressive disorder, single episode -COPD in an ex-smoker -Chronic gait dysfunction patient is wheelchair-bound -Chronic constipation on laxatives -Microcytic anemia could be from iron deficiency HOSPTIAL COURSE: 57-year-old female patient who is admitted with nonspecific chest pain. Cardiology consulted, patient was taken for stress test which was inconclusive, no new medications ordered. Patient has had no further episodes of chest pain or discomfort. Tolerating her diet, getting around in her wheelchair, moved her bowels. Condition is stable and patient is ready for discharge. CONSULTANTS: Dr. Kim Troy of cardiology Dr. Freddy Scott from psychiatry PHYSICAL EXAM: CARDIOVASCULAR: First and second sounds noted no edema RESPIRATORY: Effort normal, bilateral breath sounds diminished. Patient was seen and examined by nurse practitioner Dinorah Brower in all elements of the case discussed with attending Dr. Tinsley DISPOSITION: Home to the care of her family/friends. Patient Condition at Discharge: Stable Plan - Discharge Summary New Discharge Prescriptions: New Acetaminophen Tab [Tylenol] 650 mg PO Q6HR PRN tab PRN Reason: Fever And/ Or Pain DULoxetine HCL [Cymbalta] 30 mg PO DAILY #30 cap Famotidine [Pepcid] 20 mg PO BID #60 tablet Continue Copper 1 tab PO HS Gabapentin 900 mg PO QID carBAMazepine 200 mg PO BID Discontinued Citalopram Hydrobromide [CeleXA] 40 mg PO DAILY Discharge Medication List Copper 1 tab PO HS 09/20/15 [History] Gabapentin 900 mg PO QID 06/19/17 [History] carBAMazepine 200 mg PO BID 06/19/17 [History] Acetaminophen Tab [Tylenol] 650 mg PO Q6HR PRN tab 06/22/17 [Rx] DULoxetine HCL [Cymbalta] 30 mg PO DAILY #30 cap 06/22/17 [Rx] Famotidine [Pepcid] 20 mg PO BID #60 tablet 06/22/17 [Rx] Follow up Appointment(s)/Referral(s): [facility], [NON-STAFF] - Nj El MD [STAFF PHYSICIAN] - 06/26/17 12:45 pm Grecia Nielson MD [STAFF PHYSICIAN] - 1 Week Ambulatory/Diagnostic Orders: Complete Blood Count w/diff [LAB.AMB] Time Frame: 3 Days, Location: Determined By Patient Patient Instructions/Handouts: Anemia (DC) Discharge Disposition: HOME SELF-CARE
--- NOTE | 2017-07-25 15:34 | DS ---
DISCHARGE SUMMARY ADDENDUM: DATE OF SERVICE: 06/22/2017 PHYSICAL EXAM: CARDIOVASCULAR: First and second sounds are normal. LUNGS: Decreased breath sounds. MMODL / IJN: [id number] /
== END 2017-06-22 12:40 | disposition home or self-care (01) ==
LOC: EC 09:27 → 4MS4W 14:41 → INTOOBSV 14:41 → UNDODISIN 14:55 → 4MS4W 15:55
PROVIDERS: ADMIT Hospitalist; ATTEND Hospitalist
DX: F33.9 Major depressive disorder, recurrent, unspecified (principal); R45.851 Suicidal ideations; K29.01 Acute gastritis with bleeding; F41.9 Anxiety disorder, unspecified; R11.0 Nausea; M51.36 Other intervertebral disc degeneration, lumbar region; D50.9 Iron deficiency anemia, unspecified; J44.9 Chronic obstructive pulmonary disease, unspecified; R51 Headache; K59.09 Other constipation; G95.9 Disease of spinal cord, unspecified; E61.0 Copper deficiency; G89.29 Other chronic pain; R20.2 Paresthesia of skin; R20.0 Anesthesia of skin; K57.30 Diverticulosis of large intestine without perforation or abscess without bleeding; Z79.899 Other long term (current) drug therapy; Z99.3 Dependence on wheelchair; Z87.11 Personal history of peptic ulcer disease; Z87.891 Personal history of nicotine dependence; Z90.3 Acquired absence of stomach [part of]; T39.1X5A Adverse effect of 4-Aminophenol derivatives, initial encounter
CPT/HCPCS: 36430; 96376 ×2; 96361 ×3; 93005 ×2; 82075; 96372; 96374; 99285; 36415; 86900; 86901; 88305; 80053; 80048 ×3; 82728; 82550; 82553; 83540; 83550; 84484 ×2; 85025 ×4; 86850; 86920; 88342; 80306; 45378; 43239; G0378 ×3; P9016; J2405 ×2; J2001; J2704

== ENCOUNTER 2017-06-23 13:51 | Observation (INO) | payer MEDICARE, OTHER ==
[~2017-06-23 13:51] MED LIST: ONDANSETRON 4 MG/2 ML VIAL ONE
[2017-06-23] MEDS ORDERED: NITROGLYCERIN OINT 1 INCH/GM PACKET TOPICAL STA (14:09)
--- NOTE | 2017-06-23 14:14 | ED ---
General Adult HPI - General Chief complaint: Chest Pain Stated complaint: chest pain Time Seen by Provider: 06/23/17 14:06 Source: patient, EMS, RN notes reviewed Mode of arrival: EMS Limitations: no limitations - History of Present Illness Initial comments: Patient is a pleasant 57-year-old female presenting to the emergency department complaining of chest discomfort. Onset was prior to arrival. Symptoms last around 45 minutes then resolved. Discomfort felt like tightness without radiation. Patient did have some associated dyspnea, nausea, and sweating. Symptoms have resolved this point and patient is symptom-free. Patient was just discharged from the hospital secondary to bleeding from her stomach. Patient did receive blood transfusion on Saturday. - Related Data Home Medications Medication Instructions Recorded Confirmed Copper 1 tab PO HS 09/20/15 06/23/17 Gabapentin 900 mg PO QID 06/19/17 06/23/17 carBAMazepine 200 mg PO BID 06/19/17 06/23/17 Previous Rx's Medication Instructions Recorded Acetaminophen Tab [Tylenol] 650 mg PO Q6HR PRN tab 06/22/17 DULoxetine HCL [Cymbalta] 30 mg PO DAILY #30 cap 06/22/17 Famotidine [Pepcid] 20 mg PO BID #60 tablet 06/22/17 Allergies Allergy/AdvReac Type Severity Reaction Status Date / Time No Known Allergies Allergy Verified 06/23/17 14:19 Review of Systems ROS Statement: Those systems with pertinent positive or pertinent negative responses have been documented in the HPI. ROS Other: All systems not noted in ROS Statement are negative. Constitutional: Denies: fever Eyes: Denies: eye pain ENT: Denies: ear pain Respiratory: Reports: dyspnea. Denies: cough Cardiovascular: Reports: chest pain Endocrine: Denies: fatigue Gastrointestinal: Reports: nausea. Denies: abdominal pain Genitourinary: Denies: dysuria Musculoskeletal: Denies: back pain Skin: Denies: rash Neurological: Denies: weakness Past Medical History Past Medical History: COPD Additional Past Medical History / Comment(s): DEGENERATIVE DISC DISEASE (LUMBAR ) WITH PAIN IN HER LEGS & WEAKNESS. WHEELCHAIR BOUND, CAN TRANSFER, stomach ulcers, paraplegic History of Any Multi-Drug Resistant Organisms: None Reported Past Surgical History: Cholecystectomy, Hysterectomy, Orthopedic Surgery Additional Past Surgical History / Comment(s): Stomach ulcer surg x 2. Lt ACL replaced, PATIENT STATES BOTH ACL ARE "BLOWN OUT" FROM FALLS SHE HAS HAD. Past Anesthesia/Blood Transfusion Reactions: Previous Problems w/ Anesthesia Additional Past Anesthesia/Blood Transfusion Reaction / Comment(s): Difficulty waking up after surgery Past Psychological History: Anxiety, Depression Smoking Status: Former smoker Past Alcohol Use History: None Reported Past Drug Use History: None Reported - Past Family History Mother Family Medical History: No Reported History General Exam Limitations: no limitations General appearance: alert, in no apparent distress Head exam: Present: atraumatic Eye exam: Present: normal appearance, PERRL ENT exam: Present: normal oropharynx Neck exam: Present: normal inspection Respiratory exam: Present: normal lung sounds bilaterally Cardiovascular Exam: Present: regular rate, normal rhythm Expanded Peripheral pulses: 2+: Radial (R), Radial (L), Dorsalis Pedis (R), Dorsalis Pedis (L) GI/Abdominal exam: Present: soft. Absent: tenderness Extremities exam: Present: normal inspection. Absent: pedal edema, calf tenderness Neurological exam: Present: alert Psychiatric exam: Present: normal affect, normal mood Skin exam: Present: normal color Course Vital Signs 06/23/17 13:55 Temperature 97 F L Pulse Rate 62 Respiratory 18 Rate Blood Pressure 125/73 O2 Sat by Pulse 100 Oximetry - Reevaluation(s) Reevaluation #1: 06/23/17 14:11 Aspirin given secondary to recent GI bleed, blood transfusion given 2 days ago. EKG Findings - EKG Comments: EKG Findings:: Normal sinus rhythm 60. MT 124. QRS 84. QT 436. QTc 436. Normal axis. Normal QRS. No acute ST change. Medical Decision Making - Medical Decision Making Patient reevaluated and resting comfortably in bed. Patient remained symptom- free. Case was discussed with practitioner Galdino, who will admit for Dr. anderson. Patient was recently admitted under Dr. anderson's service just a couple of days ago. Aspirin and heparin held at this time secondary to recent GI bleed. - Lab Data Result diagrams: 06/23/17 14:08 06/23/17 14:08 Lab Results 06/23/17 06/23/17 06/23/17 Range/Units 14:08 14:08 14:08 WBC 5.7 (3.8-10.6) k/uL RBC 4.23 (3.80-5.40) m/uL Hgb 8.3 L (11.4-16.0) gm/dL Hct 29.3 L (34.0-46.0) % MCV 69.4 L (80.0-100.0) fL MCH 19.7 L (25.0-35.0) pg MCHC 28.4 L (31.0-37.0) g/dL RDW 21.0 H (11.5-15.5) % Plt Count 456 H (150-450) k/uL Neutrophils % 56 % Lymphocytes % 33 % Monocytes % 7 % Eosinophils % 2 % Basophils % 1 % Neutrophils # 3.2 (1.3-7.7) k/uL Lymphocytes # 1.9 (1.0-4.8) k/uL Monocytes # 0.4 (0-1.0) k/uL Eosinophils # 0.1 (0-0.7) k/uL Basophils # 0.0 (0-0.2) k/uL Hypochromasia Marked Poikilocytosis Moderate Anisocytosis Moderate Microcytosis Marked PT (9.0-12.0) sec INR (<1.2) APTT (22.0-30.0) sec Sodium 140 (137-145) mmol/L Potassium 4.1 (3.5-5.1) mmol/L Chloride 109 H (98-107) mmol/L Carbon Dioxide 23 (22-30) mmol/L Anion Gap 8 mmol/L BUN 8 (7-17) mg/dL Creatinine 0.50 L (0.52-1.04) mg/dL Est GFR (MDRD) Af Amer >60 (>60 ml/min/1.73 sqM) Est GFR (MDRD) Non-Af >60 (>60 ml/min/1.73 sqM) Glucose 95 (74-99) mg/dL Calcium 8.2 L (8.4-10.2) mg/dL Magnesium 1.9 (1.6-2.3) mg/dL Total Bilirubin 0.3 (0.2-1.3) mg/dL AST 24 (14-36) U/L ALT 23 (9-52) U/L Alkaline Phosphatase 150 H (38-126) U/L Total Creatine Kinase 127 (30-135) U/L CK-MB (CK-2) 0.5 (0.0-2.4) ng/mL CK-MB (CK-2) Rel Index 0.4 Troponin I <0.012 (0.000-0.034) ng/mL Total Protein 5.4 L (6.3-8.2) g/dL Albumin 3.1 L (3.5-5.0) g/dL Urine Color Urine Appearance (Clear) Urine pH (5.0-8.0) Ur Specific Dawson (1.001-1.035) Urine Protein (Negative) Urine Glucose (UA) (Negative) Urine Ketones (Negative) Urine Blood (Negative) Urine Nitrite (Negative) Urine Bilirubin (Negative) Urine Urobilinogen (<2.0) mg/dL Ur Leukocyte Esterase (Negative) 06/23/17 06/23/17 Range/Units 14:08 14:18 WBC (3.8-10.6) k/uL RBC (3.80-5.40) m/uL Hgb (11.4-16.0) gm/dL Hct (34.0-46.0) % MCV (80.0-100.0) fL MCH (25.0-35.0) pg MCHC (31.0-37.0) g/dL RDW (11.5-15.5) % Plt Count (150-450) k/uL Neutrophils % % Lymphocytes % % Monocytes % % Eosinophils % % Basophils % % Neutrophils # (1.3-7.7) k/uL Lymphocytes # (1.0-4.8) k/uL Monocytes # (0-1.0) k/uL Eosinophils # (0-0.7) k/uL Basophils # (0-0.2) k/uL Hypochromasia Poikilocytosis Anisocytosis Microcytosis PT 10.2 (9.0-12.0) sec INR 1.0 (<1.2) APTT 19.2 L (22.0-30.0) sec Sodium (137-145) mmol/L Potassium (3.5-5.1) mmol/L Chloride (98-107) mmol/L Carbon Dioxide (22-30) mmol/L Anion Gap mmol/L BUN (7-17) mg/dL Creatinine (0.52-1.04) mg/dL Est GFR (MDRD) Af Amer (>60 ml/min/1.73 sqM) Est GFR (MDRD) Non-Af (>60 ml/min/1.73 sqM) Glucose (74-99) mg/dL Calcium (8.4-10.2) mg/dL Magnesium (1.6-2.3) mg/dL Total Bilirubin (0.2-1.3) mg/dL AST (14-36) U/L ALT (9-52) U/L Alkaline Phosphatase (38-126) U/L Total Creatine Kinase (30-135) U/L CK-MB (CK-2) (0.0-2.4) ng/mL CK-MB (CK-2) Rel Index Troponin I (0.000-0.034) ng/mL Total Protein (6.3-8.2) g/dL Albumin (3.5-5.0) g/dL Urine Color Yellow Urine Appearance Clear (Clear) Urine pH 6.0 (5.0-8.0) Ur Specific Dawson 1.028 (1.001-1.035) Urine Protein Trace H (Negative) Urine Glucose (UA) Negative (Negative) Urine Ketones Negative (Negative) Urine Blood Negative (Negative) Urine Nitrite Negative (Negative) Urine Bilirubin Negative (Negative) Urine Urobilinogen <2.0 (<2.0) mg/dL Ur Leukocyte Esterase Negative (Negative) - Radiology Data Radiology results: image reviewed (Chest x-ray shows no acute process) Disposition Clinical Impression: Chest pain Disposition: ADMITTED IP TO THIS [facility] Referrals: None,Stated [Primary Care Provider] - 1-2 days Decision Time: 16:00
[2017-06-23 14:29] LABS: Appearance,Urine Clear (Clear); Bilirubin,Urine Negative (Negative); Glucose,Urine (UA) Negative (Negative); Ketones,Urine Negative (Negative); Leukocyte Esterase,Urine Negative (Negative); Nitrite,Urine Negative (Negative); Protein,Urine Trace (Negative); Specific Gravity,Urine 1.028 (1.001-1.035); UA Billing (MACRO vs. MICRO) CHEM; Urobilinogen,Urine <2.0 mg/dL (<2.0)
[2017-06-23 14:39] LABS: ALT 23 U/L (9-52); AST 24 U/L (14-36); Alkaline Phosphatase 150 U/L (38-126); Anion Gap 8 mmol/L; Blood Urea Nitrogen 8 mg/dL (7-17); Calcium 8.2 mg/dL (8.4-10.2); Carbon Dioxide 23 mmol/L (22-30); Chloride 109 mmol/L (98-107); Glucose 95 mg/dL (74-99); Magnesium 1.9 mg/dL (1.6-2.3); Non-African American GFR(MDRD) >60 (>60 ml/min/1.73 sqM); Potassium 4.1 mmol/L (3.5-5.1); Sodium 140 mmol/L (137-145); Total Bilirubin 0.3 mg/dL (0.2-1.3); Total Protein 5.4 g/dL (6.3-8.2)
[2017-06-23 14:41] LABS: Anisocytosis Moderate; Basophils % (A) 1 %; CH 19.8; CHCM 28.4; Eosinophils # (A) 0.1 k/uL (0-0.7); Eosinophils % (A) 2 %; HCT 29.3 % (34.0-46.0); HDW 4.49; HGB 8.3 gm/dL (11.4-16.0); Hypochromasia Marked; Luc # (Auto) 0.12; Luc % (Auto) 2; Lymphocytes # (A) 1.9 k/uL (1.0-4.8); Lymphocytes % (A) 33 %; MCH 19.7 pg (25.0-35.0); MCHC 28.4 g/dL (31.0-37.0); MCV 69.4 fL (80.0-100.0); Mean Platelet Volume 7.9; Microcytosis Marked; Monocytes # (A) 0.4 k/uL (0-1.0); Monocytes % (A) 7 %; Neutrophils # (A) 3.2 k/uL (1.3-7.7); Neutrophils % (A) 56 %; Poikilocytosis Moderate; RBC 4.23 m/uL (3.80-5.40); WBC 5.7 k/uL (3.8-10.6); WBC (Perox) 5.64
--- NOTE | 2017-06-23 14:42 | XR ---
EXAMINATION TYPE: XR chest 2V DATE OF EXAM: 06/23/2017 COMPARISON: NONE HISTORY: Weakness, chest pain and shortness of breath. TECHNIQUE: Frontal and lateral views of the chest are obtained. FINDINGS: There is no focal air space opacity, pleural effusion, or pneumothorax seen. There is pulm onary per inflation with flattening of the diaphragms on the lateral image and biapical lucency yudith tible with underlying COPD. Neurostimulator and arm pain pump is appreciated of the midthoracic spine , posterior approach. There is osseous demineralization for the patient's age. Cardia mediastinal benton houette is within normal limits. IMPRESSION: 1. No acute cardiopulmonary process. 2. Radiographic findings of COPD. 3. Generalized osseous demineralization for the patient's age.
[2017-06-23 14:46] LABS: Prothrombin Time 10.2 sec (9.0-12.0)
[2017-06-23 14:49] LABS: Partial Thromboplastin Time 19.2 sec (22.0-30.0)
[2017-06-23 14:51] LABS: Creatine Kinase 127 U/L (30-135)
[2017-06-23 15:04] LABS: Creatine Kinase MB 0.5 ng/mL (0.0-2.4); Troponin I <0.012 ng/mL (0.000-0.034)
[2017-06-23] MEDS ORDERED: NITROGLYCERIN SL TABS 0.4 MG TAB SUBLINGUAL PRN (16:01)
[2017-06-23 17:47] VITALS: BMI 21.2
[2017-06-23] MEDS ORDERED: ACETAMINOPHEN TAB 325 MG TAB PO PRN (19:20)
[2017-06-23 19:59] VITALS: RESP 18
--- NOTE | 2017-06-23 20:53 | P.HPIM ---
History of Present Illness H&P Date: 06/23/17 Chief Complaint: chest pain Is a 57-year-old patient of Dr. Nj El was chronic stable medical conditions include COPD peptic ulcer disease, chronic constipation, depression, anxiety, gait dysfunction and had a recent admission for peptic ulcer disease and an episode of major depression with suicidal ideation. Patient re-presents after being discharged yesterday with complaints of chest pain. Onset was sudden, symptoms lasted around 45 minutes and then resolved. Describes pain- like tightness with no radiation. Associated dyspnea nausea and sweating. Currently patient has no symptoms of further chest pain and is symptom-free. Patient continues to complain of "not feeling good". Is unable to characterize or describe in what way or where she doesn't feel well. Review of Systems GEN.: Doesn't feel well EYES: [None] HEENT: [None] NECK: [None] RESPIRATORY: [None] CARDIOVASCULAR: [Occasional chest pressure/pain] GASTROINTESTINAL: [Nausea] GENITOURINARY: [None] MUSCULOSKELETAL: [Bilateral anterior cruciate ligament problems in both knees] LYMPHATICS: [None] HEMATOLOGICAL: [None] PSYCHIATRY: Anxiety and depression] NEUROLOGICAL: [Intermittent headaches] . Past Medical History Past Medical History: COPD Additional Past Medical History / Comment(s): DEGENERATIVE DISC DISEASE (LUMBAR ) WITH PAIN IN HER LEGS & WEAKNESS. WHEELCHAIR BOUND, CAN TRANSFER, stomach ulcers, paraplegic History of Any Multi-Drug Resistant Organisms: None Reported Past Surgical History: Cholecystectomy, Hysterectomy, Orthopedic Surgery Additional Past Surgical History / Comment(s): Stomach ulcer surg x 2. Lt ACL replaced, PATIENT STATES BOTH ACL ARE "BLOWN OUT" FROM FALLS SHE HAS HAD. Past Anesthesia/Blood Transfusion Reactions: Previous Problems w/ Anesthesia Additional Past Anesthesia/Blood Transfusion Reaction / Comment(s): Difficulty waking up after surgery Past Psychological History: Anxiety, Depression Smoking Status: Former smoker Past Alcohol Use History: None Reported Additional Past Alcohol Use History / Comment(s): SMOKED SINCE SHE WAS 17 YR. PPD: 1.5 Past Drug Use History: None Reported - Past Family History Mother Family Medical History: No Reported History Medications and Allergies Home Medications Medication Instructions Recorded Confirmed Type Copper 1 tab PO HS 09/20/15 06/23/17 History Gabapentin 900 mg PO QID 06/19/17 06/23/17 History carBAMazepine 200 mg PO BID 06/19/17 06/23/17 History Allergies Allergy/AdvReac Type Severity Reaction Status Date / Time No Known Allergies Allergy Verified 06/23/17 14:19 Physical Exam Vitals: Vital Signs Temp Pulse Pulse Resp BP BP Pulse Ox 06/23/17 19:57 97.8 F 78 18 113/54 99 06/23/17 16:30 97.6 F 63 16 113/61 99 06/23/17 16:19 69 18 129/58 99 06/23/17 16:00 68 18 127/60 99 06/23/17 13:55 97 F L 62 18 125/73 100 Intake and Output 06/23/17 06/23/17 06/23/17 06:59 14:59 22:59 Other: Voiding Method Bedside Commode # Voids 1 Weight 63.503 kg 63.503 kg Patient Weight 06/24/17 06:59 Weight 63.503 kg VITAL SIGNS: [Reviewed. BMI noted] GENERAL: [Average built, lying in bed looks anxious and uncomfortable]. EYES: [Pupils equal. Conjunctiva shane]l. HEENT: [External appearance of nose and ears normal, oral cavity grossly normal] . NECK: [JVD not raised; masses not palpable]. HEART: [First and second heart sounds are normal; no edema]. LUNGS:[ Respiratory rate normal; clear to auscultation]. ABDOMEN: [Soft, nontender, liver spleen not palpable, no masses palpable]. LYMPHATICS: [No lymph nodes palpable in the axilla and neck]. PSYCH: [Alert and oriented x3; mood and affect anxious appearing l. NEUROLOGICAL: [Cranial nerves grossly intact; no facial asymmetry, power and sensation for over 5 with slightly decreased sensation]. Results CBC & Chem 7: 06/23/17 14:08 06/23/17 14:08 Labs: Abnormal Lab Results - Last 24 Hours (Table) 06/23/17 06/23/17 06/23/17 Range/Units 14:08 14:08 14:08 Hgb 8.3 L (11.4-16.0) gm/dL Hct 29.3 L (34.0-46.0) % MCV 69.4 L (80.0-100.0) fL MCH 19.7 L (25.0-35.0) pg MCHC 28.4 L (31.0-37.0) g/dL RDW 21.0 H (11.5-15.5) % Plt Count 456 H (150-450) k/uL APTT 19.2 L (22.0-30.0) sec Chloride 109 H (98-107) mmol/L Creatinine 0.50 L (0.52-1.04) mg/dL Calcium 8.2 L (8.4-10.2) mg/dL Alkaline Phosphatase 150 H (38-126) U/L Total Protein 5.4 L (6.3-8.2) g/dL Albumin 3.1 L (3.5-5.0) g/dL Urine Protein (Negative) 06/23/17 Range/Units 14:18 Hgb (11.4-16.0) gm/dL Hct (34.0-46.0) % MCV (80.0-100.0) fL MCH (25.0-35.0) pg MCHC (31.0-37.0) g/dL RDW (11.5-15.5) % Plt Count (150-450) k/uL APTT (22.0-30.0) sec Chloride (98-107) mmol/L Creatinine (0.52-1.04) mg/dL Calcium (8.4-10.2) mg/dL Alkaline Phosphatase (38-126) U/L Total Protein (6.3-8.2) g/dL Albumin (3.5-5.0) g/dL Urine Protein Trace H (Negative) Thrombosis Risk Factor Assmnt - Choose All That Apply Each Factor Represents 1 point: Age 41-60 years Thrombosis Risk Factor Assessment Total Risk Factor Score: 1 Thrombosis Risk Factor Assessment Level: Low Risk Assessment and Plan Plan: ASSESSMENT: -Chest pain, in a patient with anxiety and depression -Major depressive disorder, recurrent -COPD and an ex-smoker. -Chronic gait dysfunction patient is an a wheelchair bound. -Chronic constipation on laxatives. -Microcytic anemia could be from iron deficiency. PLAN: Consult cardiology and follow labs may need a stress test per cardiology. We' ll hold anticoagulation for the time being given patient's recent history of GI bleeding. We'll continue to monitor closely
[2017-06-23] MEDS: NITROGLYCERIN OINT 1 INCH/GM PACKET TOPICAL SCH (20:58)
[2017-06-23] MEDS: FAMOTIDINE 20 MG TAB PO SCH ×2 (20:59→22:02)
[2017-06-23] MEDS: GABAPENTIN 300 MG CAP PO SCH (21:00)
[2017-06-23] MEDS ORDERED: COPPER PO SCH (21:00)
[2017-06-23] MEDS: carBAMazepine 200 MG TAB PO SCH (21:00)
[2017-06-23 21:25] LABS: Creatine Kinase 123 U/L (30-135)
[2017-06-23 21:37] LABS: Creatine Kinase MB 0.6 ng/mL (0.0-2.4); Troponin I <0.012 ng/mL (0.000-0.034)
[2017-06-24 02:13] LABS: Creatine Kinase 102 U/L (30-135)
[2017-06-24 02:26] LABS: Creatine Kinase MB 0.6 ng/mL (0.0-2.4); Troponin I <0.012 ng/mL (0.000-0.034)
[2017-06-24] MEDS: NITROGLYCERIN OINT 1 INCH/GM PACKET TOPICAL SCH ×3 (06:10→18:35)
[2017-06-24 08:00] LABS: Anion Gap 7 mmol/L; Blood Urea Nitrogen 9 mg/dL (7-17); Calcium 8.1 mg/dL (8.4-10.2); Carbon Dioxide 24 mmol/L (22-30); Chloride 110 mmol/L (98-107); Cholesterol 151 mg/dL (<200); Glucose 94 mg/dL (74-99); HDL Cholesterol 42 mg/dL (40-60); Non-African American GFR(MDRD) >60 (>60 ml/min/1.73 sqM); Potassium 4.2 mmol/L (3.5-5.1); Sodium 141 mmol/L (137-145)
[2017-06-24 08:02] LABS: Anisocytosis Moderate; CH 19.5; CHCM 27.7; HCT 28.9 % (34.0-46.0); HDW 4.32; HGB 7.9 gm/dL (11.4-16.0); Hypochromasia Marked; MCH 19.2 pg (25.0-35.0); MCHC 27.3 g/dL (31.0-37.0); MCV 70.5 fL (80.0-100.0); Mean Platelet Volume 6.8; Microcytosis Marked; Poikilocytosis Moderate; RDW 21.2 % (11.5-15.5); WBC 6.3 k/uL (3.8-10.6); WBC (Perox) 5.95
[2017-06-24 08:45] LABS: Add Differential Manual Differential
[2017-06-24 08:49] LABS: Nucleated Red Blood Cells 0 /100 WBC (0-0); Total Cells Counted 100
[2017-06-24 08:53] LABS: Target Cells Present
[2017-06-24 08:54] LABS: Polychromasia Present
[2017-06-24] MEDS ORDERED: DOBUTamine DRIP for NUC MED 500 MG in DEXTROSE/WATER 1 250ML.BAG IV ONE (08:55)
[2017-06-24] MEDS ORDERED: ENOXAPARIN 40 MG/0.4 ML SYRINGE SQ SCH (09:00)
[2017-06-24] MEDS ORDERED: DULoxetine HCL 30 MG CAPSULE.DR PO SCH (09:00)
--- NOTE | 2017-06-24 10:07 | P.CRDCN ---
History of Present Illness Consult date: 06/24/17 History of present illness: This is a 57-year-old female. Past medical history significant for COPD, peptic ulcer disease, gastritis, gastrectomy secondary to ruptured peptic ulcer. Patient presents with complaints of chest tightening associated with shortness of breath and palpitations. Patient states she was sitting in her wheelchair conversing with her neighbor when she had a sudden onset of chest tightening midsternal location. She states she became very short of breath and felt pounding in her chest. She states she has never felt these symptoms before and it lasted approximately 15 minutes. It went away on its own. 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 She denies ever having had a heart attack. She suffers from peptic ulcer disease and was recently admitted for low hemoglobin and underwent EGD and colonoscopy. She was found to have gastritis and was treated with daily iron supplementation as well as Protonix. Patient states she is still a smoker but attempting to quit. She states she smokes approximately 2 cigarettes per day. Been smoking for 40 years. Her father was at age 48 due to coronary artery disease. EKG done shows normal sinus mechanism, rate of 60 beats per minute with no T- wave abnormality. There is no old EKG on file. Hemoglobin 7.9 down from 8.3 on admission yesterday, improved from previous admission. Potassium 4.2, BUS and 9, creatinine 0.55, troponins negative 3, triglycerides 112 total cholesterol 151 LDL 87 HDL 42. Chest x-ray showed emphysematous changes. Review of Systems REVIEW OF SYSTEMS: Patient denies any chest discomfort. No shortness of breath. No diaphoresis. Denies headache, dizziness, blurred vision, double vision. No dyspnea on exertion. Patient denies any stomach discomfort. No nausea, vomiting. No hematochezia. No hematemesis. Denies any black stools or blood in his stools. No syncope. No palpitations. No cough. No recent fever or chills. No muscle weakness or numbness. Past Medical History Past Medical History: COPD Additional Past Medical History / Comment(s): DEGENERATIVE DISC DISEASE (LUMBAR ) WITH PAIN IN HER LEGS & WEAKNESS. WHEELCHAIR BOUND, CAN TRANSFER, stomach ulcers, paraplegic History of Any Multi-Drug Resistant Organisms: None Reported Past Surgical History: Cholecystectomy, Hysterectomy, Orthopedic Surgery Additional Past Surgical History / Comment(s): Stomach ulcer surg x 2. Lt ACL replaced, PATIENT STATES BOTH ACL ARE "BLOWN OUT" FROM FALLS SHE HAS HAD. Past Anesthesia/Blood Transfusion Reactions: Previous Problems w/ Anesthesia Additional Past Anesthesia/Blood Transfusion Reaction / Comment(s): Difficulty waking up after surgery Past Psychological History: Anxiety, Depression Smoking Status: Former smoker Past Alcohol Use History: None Reported Additional Past Alcohol Use History / Comment(s): SMOKED SINCE SHE WAS 17 YR. PPD: 1.5 Past Drug Use History: None Reported - Past Family History Mother Family Medical History: No Reported History Medications and Allergies Home Medications Medication Instructions Recorded Confirmed Type Copper 1 tab PO HS 09/20/15 06/23/17 History Gabapentin 900 mg PO QID 06/19/17 06/23/17 History carBAMazepine 200 mg PO BID 06/19/17 06/23/17 History Allergies Allergy/AdvReac Type Severity Reaction Status Date / Time No Known Allergies Allergy Verified 06/23/17 14:19 Physical Exam Vitals: Vital Signs Temp Pulse Pulse Resp BP BP Pulse Ox 06/24/17 07:37 98.2 F 53 L 18 119/62 100 06/24/17 04:00 97.7 F 60 18 113/63 100 06/23/17 23:55 98.7 F 62 18 117/66 98 06/23/17 23:53 60 18 06/23/17 20:00 18 06/23/17 19:57 97.8 F 78 18 113/54 99 06/23/17 16:30 97.6 F 63 16 113/61 99 06/23/17 16:19 69 18 129/58 99 06/23/17 16:00 68 18 127/60 99 06/23/17 13:55 97 F L 62 18 125/73 100 Intake and Output 06/23/17 06/24/17 06/24/17 22:59 06:59 14:59 Other: Voiding Method Bedside Commode Bedside Commode # Voids 1 2 Weight 63.503 kg GENERAL: This is a 57-year-old female in no apparent distress at the time of my examination. HEENT: Head is atraumatic, normocephalic. Pupils are equal, round. Sclerae anicteric. Conjunctivae are clear. Mucous membranes of the mouth are moist. Neck is supple. There is no jugular venous distention. No carotid bruit is heard. LUNGS: Clear to auscultation no wheezes, rales or rhonchi. No chest wall tenderness is noted on palpation or with deep breathing. HEART: Regular rate and rhythm without murmurs, rubs or gallops. S1 and S2 heard. ABDOMEN: Soft, nontender. Bowel sounds are heard. No organomegaly noted. EXTREMITIES: 2+ peripheral pulses with trace peripheral edema bilateral lower extremities and no calf tenderness noted. NEUROLOGIC: Patient is awake, alert and oriented x3. Results 06/24/17 07:13 06/24/17 07:10 Cardiac Enzymes 06/23/17 06/23/17 06/23/17 Range/Units 14:08 14:08 20:49 AST 24 (14-36) U/L CK-MB (CK-2) 0.5 0.6 (0.0-2.4) ng/mL Troponin I <0.012 <0.012 (0.000-0.034) ng/mL 06/24/17 Range/Units 01:37 AST (14-36) U/L CK-MB (CK-2) 0.6 (0.0-2.4) ng/mL Troponin I <0.012 (0.000-0.034) ng/mL Coagulation 06/23/17 Range/Units 14:08 PT 10.2 (9.0-12.0) sec APTT 19.2 L (22.0-30.0) sec CBC 06/23/17 Range/Units 14:08 WBC 5.7 (3.8-10.6) k/uL RBC 4.23 (3.80-5.40) m/uL Hgb 8.3 L (11.4-16.0) gm/dL Hct 29.3 L (34.0-46.0) % Plt Count 456 H (150-450) k/uL Comprehensive Metabolic Panel 06/23/17 Range/Units 14:08 Sodium 140 (137-145) mmol/L Potassium 4.1 (3.5-5.1) mmol/L Chloride 109 H (98-107) mmol/L Carbon Dioxide 23 (22-30) mmol/L BUN 8 (7-17) mg/dL Creatinine 0.50 L (0.52-1.04) mg/dL Glucose 95 (74-99) mg/dL Calcium 8.2 L (8.4-10.2) mg/dL AST 24 (14-36) U/L ALT 23 (9-52) U/L Alkaline Phosphatase 150 H (38-126) U/L Total Protein 5.4 L (6.3-8.2) g/dL Albumin 3.1 L (3.5-5.0) g/dL Current Medications Generic Name Dose Route Start Last Admin Trade Name Freq PRN Reason Stop Dose Admin Acetaminophen 650 mg 06/23/17 19:20 Tylenol Tab PO Q6HR PRN Fever and/ or Pain Carbamazepine 200 mg 06/23/17 21:00 06/23/17 21:00 Tegretol PO 200 mg BID ANIA Administration Duloxetine HCl 30 mg 06/24/17 09:00 Cymbalta PO DAILY [facility] Enoxaparin Sodium 40 mg 06/24/17 09:00 Lovenox SQ DAILY [facility] Famotidine 20 mg 06/23/17 21:00 06/23/17 22:02 Pepcid PO Not Given BID ANIA Gabapentin 900 mg 06/23/17 22:00 06/23/17 21:00 Neurontin PO 900 mg QID ANIA Administration Nitroglycerin 0.5 inch 06/23/17 18:00 06/24/17 06:10 Nitro-Bid Oint TOPICAL Not Given Q6HR [facility] Nitroglycerin 0.4 mg 06/23/17 16:01 Nitrostat SUBLINGUAL Q5M PRN Chest Pain Sodium Chloride 10 ml 06/23/17 21:00 06/23/17 21:00 Saline Flush IV 10 ml BID ANIA Administration Intake and Output 06/23/17 06/24/17 06/24/17 22:59 06:59 14:59 Other: Voiding Method Bedside Commode Bedside Commode # Voids 1 2 Weight 63.503 kg 06/23/17 14:08 06/23/17 14:08 EKG Interpretations (text) EKG indicated normal sinus mechanism with possible old septal infarct. Assessment and Plan Plan: ASSESSMENT 1. Chest pain, atypical 2. COPD 3. Gastritis 4. Chronic tobacco abuse PLAN Obtain echocardiogram and dobutamine stress echo to rule out an acute coronary event. If his cardiac testing is negative the patient is stable for discharge home from a cardiac standpoint. She can follow-up with her primary care doctor in the next couple of days. Nurse Practitioner note has been reviewed, I agree with a documented findings and plan of care. Patient was seen and examined.
[2017-06-24] MEDS: FAMOTIDINE 20 MG TAB PO SCH (10:24)
[2017-06-24] MEDS: GABAPENTIN 300 MG CAP PO SCH ×3 (10:24→18:35)
[2017-06-24] MEDS: carBAMazepine 200 MG TAB PO SCH (11:08)
--- NOTE | 2017-06-24 11:30 | P.STRESS ---
- Stress Test Note Stress Test Results/Findings: Exam Performed: dobutamine stress echo Exam Date: 06/24/17 Reason for Exam: CP Height: 5 ft 8 in Weight: 63.503 kg Protocol: DSE Stage: 4 Duration of Exercise: 12:00 Resting Heart Rate: 54 Resting Blood Pressure: 113/64 Maximum Achieved Heart Rate: 127 Maximum Achieved Blood Pressure: 131/63 85% PMHR: 139 100% PMHR: 164 METS: N/A Technologist Comment: Stress Test Results/Findings: This 57-year-old female came for a dobutamine stress test for evaluation of chest pains. Baseline EKG showed sinus bradycardia, minimal nonspecific ST-T abnormalities. A standard dose of dobutamine was initiated and was titrated to maximum of 40 mics. Patient achieved a maximum heart rate of 127, transiently, but dropped down to 98. Patient developed nausea and vomiting. EKGs taken to the x-ray showed mild J-point depression with upsloping ST segments. In the postexercise period, there appeared to be about half millimeter horizontal ST depression. Patient did not express any chest pain. Echo data: Baseline echo images show normal wall motion and thickening. X-rays echo images taken at low dose and high dose dobutamine showed progressive thickening of the myocardium in all segments. However, the maximum heart rate documented was 99. Final impression #1. Mild nonspecific ST-T abnormal distribution the stress test, nondiagnostic for ischemia #2. Inconclusive dobutamine stress echo because patient did not achieve 85%. Heart rate. #3. No evidence of ischemic changes on the echocardiogram at the level of exercise that the patient has achieved.
--- NOTE | 2017-06-24 13:51 | P.PN ---
Progress Note - Text Stress test was inconclusive due to pt's inability to tolerate dobutamine and achieve target heart rate. There was no evidence of ischemic changes seen on echocardiogram at the level of exercise achieved. We recommend that the pt undergo further testing with a Lexiscan. The patient prefers to do this as an outpatient. The test has been scheduled at the office for next week. She is stable for discharge home at this time.
[2017-06-24 15:35] VITALS: BP 115/51; PULSE 64; TEMP 98.2
--- NOTE | 2017-06-24 16:31 | P.PN ---
Progress Note - Text Attending note. Date of service- This patient was seen and examined by me . Discussed the patient with my nurse practitioner Ms. Brower. Final diagnoses: -Left anterior chest wall pain could be musculoskeletal -Recent admission for GI bleed from acute gastritis from excessive use of Excedrin and the patient with distal antrectomy and gastrojejunostomy -Colonic diverticulosis -Major depressive disorder, single episode -COPD in an ex-smoker -Chronic gait dysfunction patient is wheelchair-bound -Chronic constipation on laxatives -Microcytic anemia could be from iron deficiency Hospital course: Patient admitted with nonspecific chest pain. Had a stress test inconclusive. Per cardiology okayed to go home and have an outpatient stress test. On examination: Lungs decreased breath sounds, cardio vascular first seconds are normal. Patient overall feels better. Patient to go home. Hold off any aspirin because of recent GI bleed. Care was discussed with the patient. Other home medications to continue
--- NOTE | 2017-06-25 11:30 | ECHOS ---
Stress Test Results/Findings: Exam Performed: dobutamine stress echo Exam Date: 06/24/17 Reason for Exam: CP Height: 5 ft 8 in Weight: 63.503 kg Protocol: DSE Stage: 4 Duration of Exercise: 12:00 Resting Heart Rate: 54 Resting Blood Pressure: 113/64 Maximum Achieved Heart Rate: 127 Maximum Achieved Blood Pressure: 131/63 85% PMHR: 139 100% PMHR: 164 METS: N/A Technologist Comment: Stress Test Results/Findings: This 57-year-old female came for a dobutamine stress test for evaluation of chest pains. Baseline EKG showed sinus bradycardia, minimal nonspecific ST-T abnormalities. A standard dose of dobutamine was initiated and was titrated to maximum of 40 mics. Patient achieved a maximum heart rate of 127, transiently, but dropped down to 98. Patient developed nausea and vomiting. EKGs taken to the x-ray showed mild J-point depression with upsloping ST segments. In the postexercise period, there appeared to be about half millimeter horizontal ST depression. Patient did not express any chest pain. Echo data: Baseline echo images show normal wall motion and thickening. Exercise echo images taken at low dose and high dose dobutamine showed progressive thickening of the myocardium in all segments. However, the maximum heart rate documented was 99. Final impression #1. Mild nonspecific ST-T abnormal distribution the stress test, nondiagnostic for ischemia #2. Inconclusive dobutamine stress echo because patient did not achieve 85% predicted heart rate. #3. No evidence of ischemic changes on the echocardiogram at the level of exercise that the patient has achieved. MTDD
--- NOTE | 2017-06-25 21:37 | P.DS ---
Providers Date of admission: 06/23/17 16:01 Expected date of discharge: 06/25/17 Attending physician: Trey Tinsley Consults: 06/23/17 16:01 Consult Physician Urgent Consulting Provider: David Troy Consult Reason/Comments: cp Do you want consulting provider notified?: Yes 06/23/17 21:32 Consult Physician Routine Consulting Provider: Naomi Scott Consult Reason/Comments: anxiety depression, patient known to you Do you want consulting provider notified?: Yes Primary care physician: Stated None Hospital Course: FINAL DIAGNOSES: -Left anterior chest wall pain could be musculoskeletal -Recent admission for GI bleed from acute gastritis from excessive use of Excedrin and the patient with distal antrectomy and gastrojejunostomy -Colonic diverticulosis -Major depressive disorder, single episode -COPD in an ex-smoker -Chronic gait dysfunction patient is wheelchair-bound -Chronic constipation on laxatives -Microcytic anemia could be from iron deficiency HOSPTIAL COURSE: This a 57-year-old female who had a recent admission for peptic ulcer disease and an episode of major depression with suicidal ideation. Patient re- presented to the emergency department after being discharged yesterday with complaints of chest pain. Was admitted for the same. Cardiology was consulted and psychiatry given patient's history of depression. Stress test administered and was inconclusive as patient did not achieve 85% heart rate. Psychiatry saw the patient and resources again provided to the patient and it was felt that there were no new symptoms to warrant an inpatient psychiatric admission. Patient tolerating her diet, uses a wheelchair to get around and is able to do so, last BM prior to admission. No further episodes of chest pain, condition stabilized and discharging home is appropriate. PHYSICAL EXAM: CARDIOVASCULAR: First and second sounds noted no edema RESPIRATORY: Respiratory effort normal bilateral breath sounds clear to auscultation PSYCHIATRY: Alert and oriented 3 mood and affect normal, Patient was seen and examined by nurse practitioner Dinorah Brower in all elements of the case discussed with attending Dr. Tinsley DISPOSITION: Patient is discharged to the care of her family Patient Condition at Discharge: Stable Plan - Discharge Summary New Discharge Prescriptions: Continue Copper 1 tab PO HS Gabapentin 900 mg PO QID carBAMazepine 200 mg PO BID Acetaminophen Tab [Tylenol] 650 mg PO Q6HR PRN tab PRN Reason: Fever And/ Or Pain DULoxetine HCL [Cymbalta] 30 mg PO DAILY #30 cap Famotidine [Pepcid] 20 mg PO BID #60 tablet Discharge Medication List Copper 1 tab PO HS 09/20/15 [History] Gabapentin 900 mg PO QID 06/19/17 [History] carBAMazepine 200 mg PO BID 06/19/17 [History] Acetaminophen Tab [Tylenol] 650 mg PO Q6HR PRN tab 06/22/17 [Rx] DULoxetine HCL [Cymbalta] 30 mg PO DAILY #30 cap 06/22/17 [Rx] Famotidine [Pepcid] 20 mg PO BID #60 tablet 06/22/17 [Rx] Follow up Appointment(s)/Referral(s): Kiko El MD [REFERRING] - 06/26/17 Tamiko Jaffe MD [STAFF PHYSICIAN] - 1 Week (APPOINTMENT MADE FOR LEXISCAN STRESS TEST FOR Saturday @ 7:15am.) Discharge Disposition: HOME WITH HOME HEALTH SERVICES
--- NOTE | 2017-06-26 18:06 | ECHOF ---
Referral Reason:chest pain MEASUREMENTS -------- HEIGHT: 172.7 cm WEIGHT: 63.5 kg BP: 113/64 RVIDd: 3.0 cm (< 3.3) IVSd: 1.0 cm (0.6 - 1.1) LVIDd: 4.4 cm (3.9 - 5.3) LVPWd: 1.0 cm (0.6 - 1.1) IVSs: 1.5 cm LVIDs: 2.7 cm LVPWs: 1.5 cm LA Diam: 3.7 cm (2.7 - 3.8) LAESV Index (A-L): 21.68 ml/m Ao Diam: 3.0 cm (2.0 - 3.7) AV Cusp: 2.2 cm (1.5 - 2.6) MV EXCURSION: 15.293 mm (> 18.000) MV EF SLOPE: 87 mm/s (70 - 150) EPSS: 0.3 cm AV maxP.27 mmHg AV meanP.95 mmHg RAP: 5.00 mmHg RVSP: 30.35 mmHg FINDINGS -------- Sinus rhythm. This was a technically good study. The left ventricular size is normal. Left ventricular wall thickness is normal. Overall left ventricular systolic function is normal with, an EF between 60 - 65 %. The right ventricle is normal in size and function. Normal LA size by volume 22+/-6 ml/m2. The right atrium is normal in size. The aortic valve is trileaflet and appears structurally normal. Peak/mean gradient across the Aortic Valve is 17.27mmHg / 7.95mmHg. Mild mitral regurgitation is present. Trace tricuspid regurgitation present. Right ventricular systolic pressure is normal at < 35 mmHg. The pulmonic valve was not well visualized. The aortic root size is normal. Normal inferior vena cava with normal inspiratory collapse consistent with estimated right atrial pressure of 5 mmHg. There is no pericardial effusion. CONCLUSIONS -------- 1. Sinus rhythm. 2. Peak/mean gradient across the Aortic Valve is 17.27mmHg / 7.95mmHg. 3. Mild mitral regurgitation is present. 4. Trace tricuspid regurgitation present. 5. Right ventricular systolic pressure is normal at < 35 mmHg. 6. The pulmonic valve was not well visualized. 7. The aortic root size is normal. 8. Normal inferior vena cava with normal inspiratory collapse consistent with estimated right atrial pressure of 5 mmHg. 9. There is no pericardial effusion. 10. This was a technically good study. 11. The left ventricular size is normal. 12. Left ventricular wall thickness is normal. 13. Overall left ventricular systolic function is normal with, an EF between 60 - 65 %. 14. The right ventricle is normal in size and function. 15. Normal LA size by volume 22+/-6 ml/m2. 16. The right atrium is normal in size. 17. The aortic valve is trileaflet and appears structurally normal. DIRECTOR [place]ISS[place]: Jovanna Jonas RDCS
== END 2017-06-24 18:38 | disposition home health service (06) ==
LOC: EC 13:51 → 3OBS 16:01
PROVIDERS: ADMIT Hospitalist; ATTEND Hospitalist
DX: R07.89 Other chest pain (principal); K57.30 Diverticulosis of large intestine without perforation or abscess without bleeding; F33.9 Major depressive disorder, recurrent, unspecified; R26.9 Unspecified abnormalities of gait and mobility; Z99.3 Dependence on wheelchair; K59.09 Other constipation; D50.9 Iron deficiency anemia, unspecified; J44.9 Chronic obstructive pulmonary disease, unspecified; K29.70 Gastritis, unspecified, without bleeding; F17.210 Nicotine dependence, cigarettes, uncomplicated; Z79.899 Other long term (current) drug therapy; R00.2 Palpitations; R11.0 Nausea; R61 Generalized hyperhidrosis; G82.20 Paraplegia, unspecified; M51.36 Other intervertebral disc degeneration, lumbar region; Z87.11 Personal history of peptic ulcer disease; F41.9 Anxiety disorder, unspecified; K27.9 Peptic ulcer, site unspecified, unspecified as acute or chronic, without hemorrhage or perforation; Z82.49 Family history of ischemic heart disease and other diseases of the circulatory system
CPT/HCPCS: 99285; 96372; 36415; 94760; 93005; 93017; 93306; 93350; 80061; 80053; 80048; 82550 ×2; 82553 ×2; 83735; 84484 ×2; 85025 ×2; 85610; 85730; 81003; 71020; G0378 ×2; J1250; J2405; J1650

== ENCOUNTER 2018-04-19 13:12 | Inpatient (IN) | payer MEDICARE, OTHER ==
[2018-04-19 13:59] LABS: Anisocytosis Moderate; Basophils # (A) 0.1 k/uL (0-0.2); Basophils % (A) 1 %; Eosinophils # (A) 0.1 k/uL (0-0.7); Eosinophils % (A) 1 %; HCT 24.5 % (34.0-46.0); Hypochromasia Marked; Lymphocytes # (A) 1.7 k/uL (1.0-4.8); Lymphocytes % (A) 30 %; MCH 18.1 pg (25.0-35.0); MCHC 25.9 g/dL (31.0-37.0); Mean Platelet Volume 7.1; Microcytosis Marked; Monocytes # (A) 0.4 k/uL (0-1.0); Monocytes % (A) 6 %; Neutrophils # (A) 3.4 k/uL (1.3-7.7); Neutrophils % (A) 58 %; Platelet Count 342 k/uL (150-450); Poikilocytosis Moderate; RDW 21.7 % (11.5-15.5); WBC 5.8 k/uL (3.8-10.6)
[2018-04-19 14:02] LABS: HGB 6.3 gm/dL (11.4-16.0)
[2018-04-19 14:05] LABS: ALT 31 U/L (9-52); AST 24 U/L (14-36); Albumin 2.4 g/dL (3.5-5.0); Alkaline Phosphatase 129 U/L (38-126); Anion Gap 8 mmol/L; Blood Urea Nitrogen 11 mg/dL (7-17); Calcium 7.7 mg/dL (8.4-10.2); Carbon Dioxide 20 mmol/L (22-30); Chloride 111 mmol/L (98-107); Glucose 101 mg/dL (74-99); Potassium 3.9 mmol/L (3.5-5.1); Sodium 139 mmol/L (137-145); Total Bilirubin 0.1 mg/dL (0.2-1.3); Total Protein 4.4 g/dL (6.3-8.2)
[2018-04-19 14:10] LABS: INR 1.1 (<1.2); Partial Thromboplastin Time 22.1 sec (22.0-30.0); Prothrombin Time 10.8 sec (9.0-12.0)
[2018-04-19] MEDS ORDERED: PANTOPRAZOLE 40 MG/10 ML VIAL IVP STA (14:11)
[2018-04-19 14:12] LABS: Polychromasia Present
[2018-04-19 14:13] LABS: Ovalocytes Present
--- NOTE | 2018-04-19 14:15 | XR ---
EXAMINATION TYPE: XR chest 1V portable DATE OF EXAM: 04/19/2018 Comparison: 06/23/2017 Clinical History: 58-year-old female Pain Findings: The heart is normal size. Aorta and pulmonary vasculature within normal limits. Some densities in the lung apices likely secondary to pleural-parenchymal scarring. Diffuse interstitial prominence and hy perinflation. No consolidation or pleural effusion. Impression: COPD and chronic appearing changes. Biapical pleural-parenchymal scarring. No definite acute process.
[2018-04-19 14:18] LABS: Creatine Kinase 39 U/L (30-135)
--- NOTE | 2018-04-19 14:18 | ED ---
General Adult HPI - General Chief complaint: Arrhythmia/Palpitations Stated complaint: Tachycardia Time Seen by Provider: 04/19/18 13:37 Source: patient, family, RN notes reviewed Mode of arrival: EMS Limitations: no limitations - History of Present Illness Initial comments: Patient is a pleasant 58-year-old female presenting to the emergency Department with palpitations. Onset was just prior to arrival. Patient states she felt her heart racing. EMS did provide adenosine with resolution of arrhythmia. They did report arrhythmia as SVT. Patient symptom-free at this point in eyes any complaints. No chest pain. No dyspnea. - Related Data Home Medications Medication Instructions Recorded Confirmed Copper 1 tab PO HS 09/20/15 04/19/18 Gabapentin 900 mg PO QID 06/19/17 04/19/18 carBAMazepine 200 mg PO BID 06/19/17 04/19/18 Previous Rx's Medication Instructions Recorded Acetaminophen Tab [Tylenol] 650 mg PO Q6HR PRN tab 06/22/17 DULoxetine HCL [Cymbalta] 30 mg PO DAILY #30 cap 06/22/17 Famotidine [Pepcid] 20 mg PO BID #60 tablet 06/22/17 Allergies Allergy/AdvReac Type Severity Reaction Status Date / Time No Known Allergies Allergy Verified 04/19/18 13:16 Review of Systems ROS Statement: Those systems with pertinent positive or pertinent negative responses have been documented in the HPI. ROS Other: All systems not noted in ROS Statement are negative. Constitutional: Denies: fever Eyes: Denies: eye pain ENT: Denies: ear pain Respiratory: Denies: cough, dyspnea Cardiovascular: Denies: chest pain Endocrine: Denies: fatigue Gastrointestinal: Denies: abdominal pain Genitourinary: Denies: dysuria Musculoskeletal: Denies: back pain Skin: Denies: rash Neurological: Denies: weakness Past Medical History Past Medical History: COPD Additional Past Medical History / Comment(s): DEGENERATIVE DISC DISEASE (LUMBAR ) WITH PAIN IN HER LEGS & WEAKNESS. WHEELCHAIR BOUND, CAN TRANSFER, stomach ulcers, paraplegic History of Any Multi-Drug Resistant Organisms: None Reported Past Surgical History: Cholecystectomy, Hysterectomy, Orthopedic Surgery Additional Past Surgical History / Comment(s): Stomach ulcer surg x 2. Lt ACL replaced, PATIENT STATES BOTH ACL ARE "BLOWN OUT" FROM FALLS SHE HAS HAD. Past Anesthesia/Blood Transfusion Reactions: Previous Problems w/ Anesthesia Additional Past Anesthesia/Blood Transfusion Reaction / Comment(s): Difficulty waking up after surgery Past Psychological History: Anxiety, Depression Smoking Status: Current every day smoker Past Alcohol Use History: None Reported Past Drug Use History: None Reported - Past Family History Mother Family Medical History: No Reported History General Exam Limitations: no limitations General appearance: alert, in no apparent distress Head exam: Present: atraumatic Eye exam: Present: PERRL, other (Pale conjunctival) ENT exam: Present: normal oropharynx Neck exam: Present: normal inspection Respiratory exam: Present: normal lung sounds bilaterally Cardiovascular Exam: Present: regular rate, normal rhythm GI/Abdominal exam: Present: soft. Absent: tenderness Rectal exam: Present: normal inspection (RN Alejandrina was present.). Absent: bloody stool Extremities exam: Present: normal inspection Neurological exam: Present: alert Psychiatric exam: Present: normal affect, normal mood Skin exam: Present: normal color Course Vital Signs 04/19/18 04/19/18 13:16 13:36 Temperature 98.4 F Pulse Rate 80 85 Respiratory 16 16 Rate Blood Pressure 83/53 91/55 O2 Sat by Pulse 98 99 Oximetry - Reevaluation(s) Reevaluation #1: 04/19/18 14:16 Patient states she has had some blood in her stools in the past. Brother is present who states he has power of transactional attorney. He would like patient admitted even though patient will likely disagree with this. Patient is agreeable at this time. Patient is updated on results including anemia. Patient will need blood transfusion. Case was discussed in detail with Dr. gregg, who will admit for hospital call. Medical Decision Making - Lab Data Result diagrams: 04/19/18 13:14 04/19/18 13:14 Lab Results 04/19/18 04/19/18 04/19/18 Range/Units 13:14 13:14 13:14 WBC 5.8 (3.8-10.6) k/uL RBC 3.50 L (3.80-5.40) m/uL Hgb 6.3 L* (11.4-16.0) gm/dL Hct 24.5 L (34.0-46.0) % MCV 70.0 L (80.0-100.0) fL MCH 18.1 L (25.0-35.0) pg MCHC 25.9 L (31.0-37.0) g/dL RDW 21.7 H (11.5-15.5) % Plt Count 342 (150-450) k/uL PT 10.8 (9.0-12.0) sec INR 1.1 (<1.2) APTT 22.1 (22.0-30.0) sec Sodium 139 (137-145) mmol/L Potassium 3.9 (3.5-5.1) mmol/L Chloride 111 H (98-107) mmol/L Carbon Dioxide 20 L (22-30) mmol/L Anion Gap 8 mmol/L BUN 11 (7-17) mg/dL Creatinine 0.46 L (0.52-1.04) mg/dL Est GFR (CKD-EPI)AfAm >90 (>60 ml/min/1.73 sqM) Est GFR (CKD-EPI)NonAf >90 (>60 ml/min/1.73 sqM) Glucose 101 H (74-99) mg/dL Calcium 7.7 L (8.4-10.2) mg/dL Total Bilirubin 0.1 L (0.2-1.3) mg/dL AST 24 (14-36) U/L ALT 31 (9-52) U/L Alkaline Phosphatase 129 H (38-126) U/L Total Protein 4.4 L (6.3-8.2) g/dL Albumin 2.4 L (3.5-5.0) g/dL - Radiology Data Radiology results: image reviewed (Chest x-ray shows COPD and chronic appearing changes.) Critical Care Time Critical Care Time: Yes Total Critical Care Time: 31 Disposition Clinical Impression: Anemia, Supraventricular tachycardia Disposition: ADMITTED IP TO THIS [facility] Is patient prescribed a controlled substance at d/c from ED?: No Referrals: Hua Diggs MD [Primary Care Provider] - 1-2 days Decision Time: 14:18
[2018-04-19] MEDS ORDERED: NALOXONE 0.4 MG/ML 1 ML VIAL IV PRN (14:19)
[2018-04-19 14:24] LABS: Appearance,Urine Clear (Clear); Bilirubin,Urine Negative (Negative); Blood,Urine Negative (Negative); Color,Urine Light Yellow; Glucose,Urine (UA) Negative (Negative); Ketones,Urine Negative (Negative); Leukocyte Esterase,Urine Negative (Negative); Nitrite,Urine Negative (Negative); Protein,Urine Negative (Negative); Specific Gravity,Urine 1.009 (1.001-1.035); Urobilinogen,Urine <2.0 mg/dL (<2.0)
[2018-04-19 14:30] LABS: Creatine Kinase MB 0.5 ng/mL (0.0-2.4); Troponin I <0.012 ng/mL (0.000-0.034)
[2018-04-19 15:02] LABS: Glucose,Whole Blood 103 mg/dL (75-99)
[2018-04-19] MEDS ORDERED: VERAPAMIL 40 MG TAB PO STA (15:38)
[2018-04-19 17:38] VITALS: BMI 22.1
[2018-04-19] MEDS ORDERED: TEMAZEPAM 15 MG CAP PO PRN (17:56)
[2018-04-19] MEDS: GABAPENTIN 300 MG CAP PO SCH ×2 (18:56→22:20)
[2018-04-19] MEDS: SODIUM CHLORIDE 0.9% 1,000 ML IV SCH (18:57)
[2018-04-19] MEDS: ACETAMINOPHEN TAB 500 MG TAB PO PRN (19:49)
[2018-04-19] MEDS: ALPRAZolam 0.25 MG TAB PO PRN (20:31)
[2018-04-19] MEDS: HYDROcodone/APAP 5-325MG 1 EACH TAB PO PRN (20:31)
[2018-04-19 20:56] LABS: Anisocytosis Moderate; Basophils % (A) 1 %; Eosinophils # (A) 0.1 k/uL (0-0.7); Eosinophils % (A) 1 %; HCT 26.5 % (34.0-46.0); HGB 7.5 gm/dL (11.4-16.0); Hypochromasia Marked; Lymphocytes # (A) 1.8 k/uL (1.0-4.8); Lymphocytes % (A) 37 %; MCH 21.3 pg (25.0-35.0); MCHC 28.5 g/dL (31.0-37.0); MCV 74.6 fL (80.0-100.0); Mean Platelet Volume 6.5; Microcytosis Marked; Monocytes # (A) 0.5 k/uL (0-1.0); Monocytes % (A) 10 %; Neutrophils # (A) 2.3 k/uL (1.3-7.7); Neutrophils % (A) 48 %; Platelet Count 282 k/uL (150-450); Poikilocytosis Marked; RBC 3.54 m/uL (3.80-5.40); RDW 21.2 % (11.5-15.5); WBC 4.8 k/uL (3.8-10.6)
[2018-04-19] MEDS: VERAPAMIL 40 MG TAB PO SCH (21:54)
[2018-04-19] MEDS ORDERED: SODIUM CHLORIDE 0.9% 500 ML IV ONE (22:19)
[2018-04-19] MEDS: CHOLECALCIFEROL 1,000 UNIT TAB PO SCH (22:20)
--- NOTE | 2018-04-19 23:24 | HP ---
HISTORY AND PHYSICAL DATE OF SERVICE: 04/19/2018 CHIEF COMPLAINT: Palpitations and anemia. HISTORY OF PRESENT ILLNESS: This 58-year-old woman with a past medical history of unusual form of neuropathy , history of COPD, history of DJD, history of cholecystectomy, anxiety, depression being followed by Dr. Diggs in the outpatient setting also few seeing neurology at the [facility]. 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 The patient apparently had bilateral leg swelling which is rather chronic. Patient also supposedly has bleeding from rectum and the patient had outpatient [address] Tamayo is evaluating the patient for possible outpatient colonoscopy. The patient also had an episode of gastrointestinal bleed from acute gastritis, in the past with chronic diverticulosis. Meanwhile the patient had palpitations and the patient taken to [facility] and was admitted for further evaluation and treatment. Patient was found to have supraventricular tachycardia and Adenosine was given by the EMS and converted to normal sinus rhythm. Hemoglobin 6.3. After 2 units, hemoglobin has only come to 7.5. Blood pressure is also holding in the low range 90s at this time. The patient complaining of significant tiredness and weakness. There is no history of fever, rigors. No headache, loss of consciousness, seizures. PAST MEDICAL HISTORY: Of peripheral neuropathy, COPD, gait dysfunction. History of stomach ulcer, anxiety and depression. MEDICATIONS: Prior to admission include home medications are: 1. Iron sulfate 320 mg q.h.s. Copper 1 tablet q.h.s. 1. Vitamin D3 1000 mg q.h.s. 2. Excedrin 1 tablet q.4h p.r.n. 3. Duragesic patch q.72h hours. 4. K-Tab 10 mEq p.o. daily. 5. Gabapentin 900 mg b.i.d. 6. Lasix 40 mg p.o. daily. 7. Celexa 20 mg p.o. daily. ALLERGIES: None. FAMILY HISTORY: No history of heart disease or strokes in family. SOCIAL HISTORY: History of smoking. No history alcohol intake. REVIEW OF SYSTEMS: ENT: No diminished hearing or vision. CARDIOVASCULAR: No angina or palpitations. Otherwise, as mentioned earlier. RESPIRATIONS: No cough. GI: As mentioned earlier. : No dysuria or hematuria. NERVOUS SYSTEM: As mentioned earlier. ALLERGY/IMMUNOLOGY: No asthma or hayfever. MUSCULOSKELETAL as mentioned earlier. HEMATOLOGY/ONCOLOGY: No history of anemia. Otherwise mentioned earlier. ENDOCRINE: No history of diabetes or hypothyroidism. CONSTITUTIONAL: As mentioned earlier. DERMATOLOGY: Negative. RHEUMATOLOGY: Negative. PSYCHIATRY: As mentioned earlier. PHYSICAL EXAM: Patient is alert, oriented x3. Pulse 74, blood pressure 81/44, respiratory rate 12, Temperature 97.2, pulse ox 97% on 2 L. HEENT is conjunctivae pale. Oral mucosa moist. NECK is no jugular venous distention. No carotid bruit. No lymph node enlargement. CARDIOVASCULAR is S1-S2, no S3, no S4. RESPIRATORY: Breath sounds diminished in the bases. A few scattered rhonchi and crackles. ABDOMEN: Soft, nontender. No mass palpable. LEGS: Bilateral leg edema. NERVOUS SYSTEM: Higher functions as mentioned earlier. Moves all 4 limbs. Mild diffuse weakness present. Lymphatics: No lymph nodes palpable in the neck, axillae or groin. SKIN: No ulcer, rash, bleeding. LABS: WBC 4.2, hemoglobin 7.5, after transfusion. ASSESSMENT: 1. Acute gastrointestinal bleed, possibly upper with acute blood loss anemia as well as relative hypotension. 2. Microcytosis. 3. Peripheral neuropathy. 4. Gait dysfunction. 5. Chronic obstructive pulmonary disease. 6. Degenerative joint disease. 7. History of gastric ulcer. 8. History of cholecystectomy. 9. History of anxiety and depression. 10.Wheelchair bound. 11.History of continued nicotine dependence. RECOMMENDATIONS AND DISCUSSION: In this 58-year-old woman who presented with multiple complex medical issues, we will monitor the patient closely, continue the current management and symptomatic treatment. We will initiate proton pump inhibitors, 2 more units of transfusion because the patient is symptomatic anemia as well as significant hypotension. Otherwise, continue the home medications. Avoid NSAIDs and verapamil has been started by Cardiology. I would recommend Cardiology, continue cardiology evaluation. Gastroenterology evaluation as well. Repeat labs will be ordered. Guarded prognosis because of the because of multiple complex medical issues. Further recommendations to follow. Copy of dictation being forwarded to Dr. Diggs who is the primary physician. ASHELY / MARISOL: [id number] / MTDD
[2018-04-20] MEDS: HYDROcodone/APAP 5-325MG 1 EACH TAB PO PRN ×2 (02:22→22:23)
[2018-04-20] MEDS: ACETAMINOPHEN TAB 500 MG TAB PO PRN ×2 (08:04→19:49)
[2018-04-20] MEDS: SODIUM CHLORIDE 0.9% 1,000 ML IV SCH ×2 (08:06→21:04)
[2018-04-20] MEDS: CITALOPRAM HYDROBROMIDE 20 MG TAB PO SCH (08:07)
[2018-04-20] MEDS: FUROSEMIDE 40 MG TAB PO SCH ×2 (08:07→10:37)
[2018-04-20] MEDS: GABAPENTIN 300 MG CAP PO SCH ×4 (08:07→22:19)
[2018-04-20] MEDS: POTASSIUM CHLORIDE ER 10 MEQ TAB.ER.PRT PO SCH ×2 (08:08→10:37)
[2018-04-20] MEDS: PANTOPRAZOLE 40 MG/10 ML VIAL IV SCH (08:18)
[2018-04-20 08:42] LABS: Anisocytosis Moderate; Basophils % (A) 1 %; Eosinophils # (A) 0.1 k/uL (0-0.7); Eosinophils % (A) 1 %; HCT 34.5 % (34.0-46.0); Hypochromasia Marked; Lymphocytes # (A) 1.5 k/uL (1.0-4.8); Lymphocytes % (A) 26 %; MCHC 30.6 g/dL (31.0-37.0); MCV 75.2 fL (80.0-100.0); Mean Platelet Volume 7.8; Microcytosis Moderate; Monocytes # (A) 0.6 k/uL (0-1.0); Monocytes % (A) 10 %; Neutrophils # (A) 3.5 k/uL (1.3-7.7); Neutrophils % (A) 60 %; Platelet Count 286 k/uL (150-450); Poikilocytosis Marked; RBC 4.58 m/uL (3.80-5.40); RDW 20.7 % (11.5-15.5); WBC 5.9 k/uL (3.8-10.6)
[2018-04-20 08:47] LABS: HGB 10.6 gm/dL (11.4-16.0)
[2018-04-20 08:51] LABS: Anion Gap 3 mmol/L; Blood Urea Nitrogen 8 mg/dL (7-17); Calcium 7.4 mg/dL (8.4-10.2); Carbon Dioxide 24 mmol/L (22-30); Chloride 113 mmol/L (98-107); Glucose 83 mg/dL (74-99); Magnesium 1.9 mg/dL (1.6-2.3); Phosphorus 3.7 mg/dL (2.5-4.5); Potassium 4.2 mmol/L (3.5-5.1); Sodium 140 mmol/L (137-145)
[2018-04-20] MEDS: VERAPAMIL 40 MG TAB PO SCH ×2 (10:37→19:51)
--- NOTE | 2018-04-20 14:49 | CONS ---
CONSULTATION Ms. Lua is a 58-year-old female who presented with supraventricular tachycardia. She complained of palpitations. She has had recurrent palpitations. EMS injected IV adenosine with termination of the tachycardia. I do not have a 12-lead ECG for documentation. However, she states that she has had recurrent palpitations and she has come to the emergency room at least on 3 different occasions for the same problem and received the medication that terminated the arrhythmia. She denies any chest discomfort. MEDICATIONS: Medications at home include copper, gabapentin, and Tegretol and Cymbalta and famotidine. ALLERGIES: No known drug allergies. REVIEW OF SYSTEMS: No fever, chills, or rigors. No cough or expectoration. No nausea, vomiting, or diarrhea. No hematuria or dysuria. No strokes or seizures or skin lesions. No musculoskeletal complaints. However, today, this morning, she feels very weak and tired and states she feels horrible. Her rhythm is normal. Her blood pressure is in the normal range. She was found to be very anemic and was given packed red cell transfusion. PAST MEDICAL HISTORY: Past medical history of peripheral neuropathy, gait dysfunction and duodenal ulcer, anxiety and depression. FAMILY HISTORY: Noncontributory. PHYSICAL EXAMINATION: On examination initially, her blood pressure was 81/44 mmHg while in sinus rhythm. Respirations are normal. This morning her blood pressure is 103/49 mmHg, 90/49 mmHg, pulse rate is in the 60s. Head and neck examination is normal. Heart sounds S1, S2 are soft. ABDOMEN: Soft. Extremities are warm. The patient denies any GI bleeding or any bleeding elsewhere. She has not noticed any black stools. The etiology of her anemia is unclear and will require further medical work. IMPRESSION: 1. Supraventricular tachycardia adenosine sensitive. 2. Low blood pressure. 3. Anemia, being worked up by Internal Medicine. From a cardiac standpoint, continue verapamil 40 mg twice daily and watch on telemetry. Anemia evaluation and management per Internal Medicine. MMODL / IJN: [id number] /
--- NOTE | 2018-04-20 15:16 | CONS ---
CONSULTATION DATE OF SERVICE: April 20, 2018. REASON FOR CONSULTATION: Severe anemia. Selena is a very pleasant 58-year-old lady who came into the emergency department because she has been having significant palpitation and so EMS was called and she was found to have supraventricular tachycardia and adenosine was given by the EMS and converted to normal sinus rhythm. In the emergency department, hemoglobin was down to 6.3 g/dL, and the patient was admitted to the hospital for further evaluation and recommendation. The patient is stating that she has had issue with the anemia over the last year. In fact, she has been requiring blood transfusion every 3-4 weeks. She did have upper endoscopy and colonoscopy on June 18, [address] Grecia Nielson, which showed evidence of partial gastrectomy with gastritis of the gastric remnant and she also had colonoscopy which revealed diverticulosis and there was no evidence of bleeding. The patient did have partial gastrectomy in 2010 due to perforated peptic ulcer disease. The patient has not had any follow up after her partial gastrectomy in regard to potential malabsorption. And she has not been on any kind of iron or B12 supplements. As stated, she has had required blood transfusion on several occasions over the last year. She complained of feeling very tired. She craves ice all the time. She has lost 30 pounds within the last year. She denies any fever or chills. She has some nausea. No vomiting. She denies any melena, hematochezia, hematuria or hemoptysis. No fever or night sweats. She has numbness in her lower extremities and she was evaluated at [facility] in the past and no definite cause of her peripheral neuropathy was given. PAST MEDICAL HISTORY: As stated above. She had peptic ulcer disease and perforated peptic ulcer, required partial gastrectomy. She has a history of COPD, peripheral neuropathy with gait dysfunction evaluated at [facility], anxiety and depression. SOCIAL HISTORY: She is a smoker on a daily basis. No alcohol abuse or substance abuse. FAMILY HISTORY: For hematologic and oncologic disorder is positive that her mother had bladder cancer. Otherwise negative. ALLERGIES: No known drug allergy. HOME MEDICATION: Include iron sulfate 320 mg daily, copper 1 mg q.h.s., vitamin D3 1000 mg q.h.s., Excedrin 1 mg every 4 hours. Duragesic patch 25 mcg q.72h, Lasix 40 mg daily, Celexa 20 mg daily. REVIEW OF SYSTEMS: As stated above in the history of present illness. PHYSICAL EXAMINATION: She is alert, oriented x3. She does not appear to be in acute distress. Her vital signs are temperature 97.8, afebrile, pulse 64, pulse is 62 regular, respiration 14, blood pressure 92/50. HEENT: Normocephalic, atraumatic. Oral mucosa intact. Neck is supple. No jugular venous distention. CHEST: Equal expansion bilaterally. Lungs are clear to auscultation and percussion. Heart is regular rate and rhythm. Abdomen is soft. No tenderness. No organomegaly or masses. Bowel sounds present. Extremities revealed no significant edema. SKIN: No significant bruise or petechiae. LYMPHATICS: No peripherally enlarged cervical, supraclavicular node. MUSCULOSKELETAL: Moving all extremities appropriately. No percussion tenderness over her spine or sternum. LABORATORY DATA: WBC of 5.9, hemoglobin 10.6, up from 6.3 upon admission. MCV 75.2, platelet count 287. Sodium 140, potassium 4.2, chloride 113, CO2 24, BUN is 8, creatinine 0.45. IMPRESSION: 1. Severe microcytic hypochromic anemia. This is secondary to iron deficiency anemia. This is related to malabsorption due to her previous partial gastrectomy and inability to absorb oral iron. Her hemoglobin improved after the supportive transfusion. 2. Peripheral neuropathy as stated above. Certainly underlying B12 deficiency causing the cause of her peripheral neuropathy cannot be excluded and her B12 deficiency could well be related also to malabsorption after partial gastrectomy. 3. Over 30 pounds weight loss over the last year. RECOMMENDATION: 1. Will obtain iron studies, although she already had blood transfusion. However, previous iron studies done almost a year ago in May of 2017 revealed evidence of severe iron deficiency at that time. 2. We will start the patient on parenteral iron supplement while inpatient. 3. Obtain B12 level and check acid level as well. She will also require parental B12 supplement. 4. In view of her unexplained weight loss we will obtain a CT scan of the chest, abdomen and pelvis for further evaluation. 5. I highly encouraged her to follow up with the office. She will require periodic parenteral iron supplement and she will require B12 supplement to avoid future blood transfusion. The above was discussed with the patient. I have answered all questions. Thank you very much for asking me to participate in the care of this nice lady. ASHELY / MARISOL: [id number] /
[2018-04-20] MEDS ORDERED: IOPAMIDOL-300 CONTRAST 30 ML VIAL (ORAL USE) PO PRN (16:03)
--- NOTE | 2018-04-20 18:07 | PN ---
PROGRESS NOTE DATE OF SERVICE: 04/20/2018 This 58-year-old woman was admitted with palpitations, anemia, has been multiple transfused. The patient is monitored in ICU. The patient had 4 units transfusion. The current hemoglobin is 10.6. The patient is feeling slightly better. Stool OP is positive. Multiple consultants including Cardiology and Hematology-Oncology is following the patient closely. Cardiology has seen the patient and recommended metoprolol 40 mg p.o. b.i.d. and continue the telemetry. From Hematology- Oncology point of view, the patient has been recommended to continue the present possibly malabsorption secondary to partial gastrectomy. Continue to monitor and Gastroenterology evaluation is also in progress. PAST MEDICAL HISTORY: Reviewed. REVIEW OF SYSTEMS: CARDIOVASCULAR: No angina. RESPIRATORY: As mentioned. GI: As mentioned. : As mentioned. NERVOUS SYSTEM: No numbness, weakness. MEDICATIONS: Reviewed and include: 1. Tylenol 500 mg q.6h p.r.n. 2. Hotchkiss 5 mg q.6. 3. Xanax 0.5 t.i.d. 4. Vitamin D3 1000 q.h.s. 5. Celexa 20 mg p.o. daily. 6. Duragesic patch 25 mcg q.72 hours. 7. Lasix 40 mg p.o. 8. Neurontin 900 mg p.o. q.i.d. 9. Iopamidol 30 mg q.6h p.r.n. 10.Narcan 0.2 q.2h p.r.n. 11.Protonix 40 mg daily. 12.Zocor 10 mg p.o. daily. 13.Restoril 50 mg p.o. q.h.s. p.r.n. 14.40 mg p.o. b.i.d. PHYSICAL EXAM: Patient is alert, oriented x3, pulse 68, blood pressure 90/49, respiration 18, temperature is normal, pulse ox 94% on room air. HEENT: Conjunctivae normal. Oral mucosa moist. Neck is no jugular venous distention. No carotid bruit. No lymph node enlargement. CARDIOVASCULAR: S1, S2 muffled. No S3, no S4. RESPIRATORY: Breath sounds diminished in the bases. No rhonchi, no crackles. ABDOMEN: Soft, nontender. No mass palpable. LEGS: No edema, no swelling. NERVOUS SYSTEM: Higher function as mentioned earlier. Moves all four limbs. No focal motor deficits. LYMPHATICS: No lymphadenopathy in the neck, axillae, groin. SKIN: No ulcer, rash. LABS: WBC 5, Hemoglobin 10.6. ASSESSMENT: 1. Acute GI bleed, possibly upper with acute blood loss anemia as well relative hypotension. 2. Possible malnutrition secondary to partial gastrectomy. 3. Microcytosis. 4. Peripheral neuropathy. 5. Gait dysfunction. 6. Chronic obstructive pulmonary disease. 7. Degenerative joint disease. 8. History of gastric ulcer. 9. History of cholecystectomy. 10.History of anxiety and depression. 12.History of continued ongoing nicotine dependence. RECOMMENDATIONS AND DISCUSSION: I recommend to continue current management and symptomatic treatment. Otherwise at this time I recommend repeat labs. Increase ambulation. Otherwise continue the telemetry. The CT scan of the chest, abdomen and pelvis has been ordered. Guarded prognosis. further recommendations to follow. MMODL / IJN: [id number] / [id number]
[2018-04-20] MEDS: ALPRAZolam 0.25 MG TAB PO PRN (19:49)
[2018-04-20] MEDS: CHOLECALCIFEROL 1,000 UNIT TAB PO SCH (19:49)
[2018-04-21] MEDS: ACETAMINOPHEN TAB 500 MG TAB PO PRN ×3 (03:59→15:36)
[2018-04-21] MEDS: ALPRAZolam 0.25 MG TAB PO PRN ×2 (04:07→23:35)
[2018-04-21] MEDS: HYDROcodone/APAP 5-325MG 1 EACH TAB PO PRN ×2 (06:00→20:08)
[2018-04-21 07:27] LABS: Anisocytosis Moderate; Basophils % (A) 1 %; Eosinophils # (A) 0.1 k/uL (0-0.7); Eosinophils % (A) 1 %; HCT 34.3 % (34.0-46.0); HGB 10.1 gm/dL (11.4-16.0); Hypochromasia Marked; Lymphocytes # (A) 1.5 k/uL (1.0-4.8); Lymphocytes % (A) 25 %; MCH 23.2 pg (25.0-35.0); MCHC 29.5 g/dL (31.0-37.0); MCV 78.8 fL (80.0-100.0); Mean Platelet Volume 6.8; Microcytosis Moderate; Monocytes # (A) 0.5 k/uL (0-1.0); Monocytes % (A) 8 %; Neutrophils # (A) 3.7 k/uL (1.3-7.7); Neutrophils % (A) 62 %; Platelet Count 271 k/uL (150-450); Poikilocytosis Marked; RBC 4.35 m/uL (3.80-5.40); RDW 21.3 % (11.5-15.5); WBC 5.9 k/uL (3.8-10.6)
[2018-04-21 07:36] LABS: Anion Gap 5 mmol/L; Blood Urea Nitrogen 7 mg/dL (7-17); Calcium 7.4 mg/dL (8.4-10.2); Carbon Dioxide 22 mmol/L (22-30); Chloride 112 mmol/L (98-107); Glucose 79 mg/dL (74-99); Potassium 4.2 mmol/L (3.5-5.1); Sodium 139 mmol/L (137-145)
--- NOTE | 2018-04-21 08:00 | P.CONS ---
History of Present Illness - Reason for Consult Consult date: 04/20/18 Anemia - History of Present Illness The patient is a 58-year-old female who presented to the emergency room with palpitations and was found to have anemia with a hemoglobin of 7.5. The patient received 2 units of packed cells and feels improved. The patient has history of peptic ulcer disease and had more than two thirds of her stomach removed in the past. She apparently had issues with anemia and has multiple workups in the past including upper endoscopies and colonoscopies. She denied any hematemesis or hematochezia denied dysphagia, odynophagia or abdominal pains. Review of Systems Constitutional: Denies fever, chills, sweats, weight gain, or loss. HEENT: Negative for migraines, blurred vision or loss, earaches, drainage, tinnitus, oral mucosal lesions, dysphagia, or odynophagia. CARDIAC: Negative for chest pain, arrhythmias, or palpitation. RESPIRATORY: Negative for shortness of breath, hemoptysis, cough, or sputum production. GI: See HPI for pertinent findings. : Negative for hematuria, urgency, frequency, polyuria, or dysuria. MUSCULOSKELETAL: Negative for muscle aches, swelling, arthritis, and arthralgias. NEUROLOGIC: Negative for stroke or TIA. ENDOCRINE: Negative for thyroid problems. SKIN: Negative for rash or itching. PSYCHIATRIC: Negative history for depression and anxiety Past Medical History Past Medical History: COPD Additional Past Medical History / Comment(s): DEGENERATIVE DISC DISEASE (LUMBAR ) WITH PAIN IN HER LEGS & WEAKNESS. WHEELCHAIR BOUND, CAN TRANSFER, stomach ulcers, paraplegic History of Any Multi-Drug Resistant Organisms: None Reported Past Surgical History: Cholecystectomy, Hysterectomy, Orthopedic Surgery Additional Past Surgical History / Comment(s): Stomach ulcer surg x 2. Lt ACL replaced, PATIENT STATES BOTH ACL ARE "BLOWN OUT" FROM FALLS SHE HAS HAD. Past Anesthesia/Blood Transfusion Reactions: Previous Problems w/ Anesthesia Additional Past Anesthesia/Blood Transfusion Reaction / Comm: Difficulty waking up after surgery Past Psychological History: Anxiety, Depression Smoking Status: Current every day smoker Past Alcohol Use History: None Reported Additional Past Alcohol Use History / Comment(s): SMOKED SINCE SHE WAS 17 YR. PPD: 0.5 Past Drug Use History: None Reported - Past Family History Mother Family Medical History: No Reported History Medications and Allergies Home Medications Medication Instructions Recorded Confirmed Type Copper 1 tab PO HS 11/24/15 06/23/18 History Gabapentin 900 mg PO QID 06/19/17 04/19/18 History Viepuyo-Ebwe-Odga [id number] 1 tab PO Q4HR PRN 04/19/18 04/19/18 History [Excedrin] Cholecalciferol [Vitamin D3] 1,000 unit PO HS 04/19/18 04/19/18 History Citalopram Hydrobromide [CeleXA] 20 mg PO DAILY 04/19/18 04/19/18 History Ferrous Sulfate [Feosol] 325 mg PO HS 04/19/18 04/19/18 History Furosemide [Lasix] 40 mg PO DAILY 04/19/18 04/19/18 History Potassium Chloride [K-Tab ER] 10 meq PO DAILY 04/19/18 04/19/18 History fentaNYL 25MCG/HR PATCH [Duragesic 1 patch TRANSDERM Q72H 04/19/18 04/19/18 History 25MCG/HR] Allergies Allergy/AdvReac Type Severity Reaction Status Date / Time No Known Allergies Allergy Verified 04/19/18 14:22 Physical Exam Vitals: Vital Signs Temp Pulse Pulse Resp BP BP Pulse Ox 04/20/18 09:00 64 15 97 04/20/18 08:00 63 19 103/49 96 04/20/18 07:51 97 04/20/18 07:30 65 48 H 92/48 94 L 04/20/18 07:00 68 18 102/50 95 04/20/18 06:30 62 14 87/52 93 L 04/20/18 06:00 63 16 93/45 92 L 04/20/18 05:30 62 18 92/50 93 L 04/20/18 05:18 97.8 F 62 14 92/50 92 L 04/20/18 05:00 62 16 85/47 93 L 04/20/18 04:30 60 18 76/43 96 04/20/18 04:15 97.4 F L 61 17 94/45 94 L 04/20/18 04:00 59 L 16 71/41 94 L 04/20/18 03:45 64 24 86/45 94 L 04/20/18 03:30 62 17 87/47 93 L 04/20/18 03:16 97.4 F L 66 14 87/47 94 L 04/20/18 03:15 60 11 L 80/46 94 L 04/20/18 03:00 60 22 87/48 93 L 04/20/18 02:46 97.6 F 62 24 87/48 92 L 04/20/18 02:45 63 14 85/46 94 L 04/20/18 02:36 97.5 F L 64 22 85/46 96 04/20/18 02:30 62 20 83/56 95 04/20/18 02:22 97.6 F 68 14 83/56 95 04/20/18 02:15 63 12 77/38 94 L 04/20/18 02:00 61 12 91/46 96 04/20/18 01:45 61 12 78/44 95 04/20/18 01:30 63 17 86/51 95 04/20/18 01:15 65 13 86/47 94 L 04/20/18 01:00 65 12 82/45 95 04/20/18 00:45 66 13 85/42 94 L 04/20/18 00:30 67 14 77/42 95 04/20/18 00:15 67 12 79/37 94 L 04/20/18 00:10 97.6 F 66 14 77/42 95 04/20/18 00:00 97.4 F L 69 16 80/45 97 04/19/18 23:40 97.5 F L 66 12 79/37 94 L 04/19/18 23:30 97.4 F L 64 14 80/45 94 L 04/19/18 23:00 66 12 74/42 94 L 04/19/18 22:00 74 12 81/44 97 18 21:00 69 13 87/44 97 04/19/18 20:00 97.5 F L 63 65 17 86/44 98 18 19:32 97 04/19/18 18:01 98 F 65 18 97/49 04/19/18 17:38 98.1 F 65 18 87/46 04/19/18 17:24 98.3 F 68 18 95/55 100 04/19/18 17:04 98.2 F 75 18 80/49 100 04/19/18 16:36 98.1 F 72 18 83/50 99 04/19/18 16:26 98.3 F 71 18 77/46 99 04/19/18 15:08 98.1 F 75 18 96/52 100 04/19/18 14:38 98 F 79 16 99/50 97 04/19/18 13:36 85 16 91/55 99 04/19/18 13:16 98.4 F 80 16 83/53 98 Intake and Output 04/19/18 04/20/18 04/20/18 22:59 06:59 14:59 Intake Total 1525 1525 690 Output Total 500 240 Balance 1025 1525 450 Intake: IV 725 845 450 PRBC 620 Sodium Chloride 0.9% 1, 225 225 450 000 ml @ 75 mls/hr IV . [id number] [facility] Rx#:[id number] Sodium Chloride 0.9% 500 500 ml @ 999 mls/hr IV .Q31M [facility] Rx#:[id number] Oral 180 60 240 Blood Product 620 620 Rc As-1 Unit 310 [id number] Rc As-3 Unit 310 [id number] Rc As-3 Unit 310 [id number] Rc As-3 Unit 310 [id number] Output: Urine 500 240 Other: Voiding Method Bedside Commode # Voids 1 1 # Bowel Movements 1 Weight 64.3 kg 66.5 kg General appearance: The patient is alert, oriented, in no acute distress. HET: Head is normocephalic and atraumatic. Pupils are equal and reactive. Oropharynx is clear without lesions. Neck: Supple without lymphadenopathy. Trachea midline. Heart: S1 S2. Regular rate and rhythm. Lungs: No crackles or wheezes are heard. No dullness to percussion. Abdomen: Soft, nontender, nondistended with bowel sounds. No peritoneal signs. No palpable organomegaly or masses. Extremities: Normal skin color and turgor. No cyanosis, rash, ulceration, clubbing, or edema. Radial and pedal pulses are 2/4 bilaterally. Neurological: No focal deficits. Strength and sensation are grossly intact. Results CBC & Chem 7: 04/21/18 06:18 04/21/18 06:18 Labs: Abnormal Lab Results - Last 24 Hours (Table) 04/19/18 04/19/18 04/19/18 Range/Units 13:14 13:14 14:09 RBC 3.50 L (3.80-5.40) m/uL Hgb 6.3 L* (11.4-16.0) gm/dL Hct 24.5 L (34.0-46.0) % MCV 70.0 L (80.0-100.0) fL MCH 18.1 L (25.0-35.0) pg MCHC 25.9 L (31.0-37.0) g/dL RDW 21.7 H (11.5-15.5) % Chloride 111 H (98-107) mmol/L Carbon Dioxide 20 L (22-30) mmol/L Creatinine 0.46 L (0.52-1.04) mg/dL Glucose 101 H (74-99) mg/dL POC Glucose (mg/dL) (75-99) mg/dL Calcium 7.7 L (8.4-10.2) mg/dL Total Bilirubin 0.1 L (0.2-1.3) mg/dL Alkaline Phosphatase 129 H (38-126) U/L Total Protein 4.4 L (6.3-8.2) g/dL Albumin 2.4 L (3.5-5.0) g/dL Stool Occult Blood Positive H (Negative) Crossmatch 04/19/18 04/19/18 04/19/18 Range/Units 14:32 15:00 20:07 RBC 3.54 L (3.80-5.40) m/uL Hgb 7.5 L (11.4-16.0) gm/dL Hct 26.5 L (34.0-46.0) % MCV 74.6 L (80.0-100.0) fL MCH 21.3 L (25.0-35.0) pg MCHC 28.5 L (31.0-37.0) g/dL RDW 21.2 H (11.5-15.5) % Chloride (98-107) mmol/L Carbon Dioxide (22-30) mmol/L Creatinine (0.52-1.04) mg/dL Glucose (74-99) mg/dL POC Glucose (mg/dL) 103 H (75-99) mg/dL Calcium (8.4-10.2) mg/dL Total Bilirubin (0.2-1.3) mg/dL Alkaline Phosphatase (38-126) U/L Total Protein (6.3-8.2) g/dL Albumin (3.5-5.0) g/dL Stool Occult Blood (Negative) Crossmatch See Detail 04/20/18 04/20/18 Range/Units 08:29 08:29 RBC (3.80-5.40) m/uL Hgb 10.6 L D (11.4-16.0) gm/dL Hct (34.0-46.0) % MCV 75.2 L (80.0-100.0) fL MCH 23.0 L (25.0-35.0) pg MCHC 30.6 L (31.0-37.0) g/dL RDW 20.7 H (11.5-15.5) % Chloride 113 H (98-107) mmol/L Carbon Dioxide (22-30) mmol/L Creatinine 0.43 L (0.52-1.04) mg/dL Glucose (74-99) mg/dL POC Glucose (mg/dL) (75-99) mg/dL Calcium 7.4 L (8.4-10.2) mg/dL Total Bilirubin (0.2-1.3) mg/dL Alkaline Phosphatase (38-126) U/L Total Protein (6.3-8.2) g/dL Albumin (3.5-5.0) g/dL Stool Occult Blood (Negative) Crossmatch Assessment and Plan Assessment: Symptomatic anemia could be related to GI bleeding. The possibility of iron malabsorption secondary to her partial gastric resection should be considered as well. Plan: Agree with your current plan is made. I will review her prior endoscopic workup and consider repeat studies during this admission or as an outpatient accordingly. I will follow with you with interest.
[2018-04-21] MEDS: CITALOPRAM HYDROBROMIDE 20 MG TAB PO SCH (09:34)
[2018-04-21] MEDS: GABAPENTIN 300 MG CAP PO SCH ×4 (09:34→23:31)
[2018-04-21] MEDS: VERAPAMIL 40 MG TAB PO SCH ×2 (09:34→20:08)
[2018-04-21] MEDS: PANTOPRAZOLE 40 MG/10 ML VIAL IV SCH (09:34)
[2018-04-21] MEDS: FUROSEMIDE 40 MG TAB PO SCH (09:34)
[2018-04-21] MEDS: POTASSIUM CHLORIDE ER 10 MEQ TAB.ER.PRT PO SCH (09:34)
[2018-04-21] MEDS: SODIUM CHLORIDE 0.9% 1,000 ML IV SCH ×2 (09:35→23:31)
[2018-04-21] MEDS: IOPAMIDOL-300 CONTRAST 30 ML VIAL (ORAL USE) PO PRN ×2 (10:13→11:22)
--- NOTE | 2018-04-21 10:56 | P.PN ---
Subjective Progress Note Date: 04/21/18 [id number] female who presented to the hospital with supraventricular tachycardia and symptoms of palpitations. Patient was given adenosine with termination of the tachycardia. Patient was also found on admission here to be significantly anemic, requiring total of 4 units of blood transfusion. As an outpatient she states she recently also had a blood transfusion. Her blood pressure this morning 102/58 heart rate in the 60s, temperature 97.8. White blood cell count 5.9, hemoglobin 10.1, platelet count 271. Sodium 139, potassium 4.2, BUN 7, creatinine 0.35. TSH 1.9. Magnesium 1.9. At the time of my examination this morning, patient is sitting up in the chair at bedside, appears to be weak however she states she does not feel weak, and she denies palpitations dizziness or lightheadedness. Hematology and GI service have been consulted. Objective - Vital Signs Vital signs: Vital Signs Temp 97.8 F 04/21/18 04:00 Pulse 68 04/21/18 04:00 Resp 20 04/21/18 04:00 BP 102/58 04/21/18 04:00 Pulse Ox 98 04/21/18 04:00 Intake & Output 04/20/18 04/21/18 04/21/18 18:59 06:59 18:59 Intake Total 990 150 100 Output Total 240 1200 Balance 750 150 -1100 Weight 64.4 kg 59.5 kg Intake: IV 750 150 Sodium Chloride 0.9% 1, 750 150 000 ml @ 75 mls/hr IV . [id number] [facility] Rx#:[id number] Oral 240 100 Output: Urine 240 1200 Other: Voiding Method Bedside Commode Bedside Commode # Voids 1 2 # Bowel Movements 1 1 1 - Exam PHYSICAL EXAMINATION: GENERAL: 58-year-old female, frail, in no apparent distress at the time of my examination HEENT: Head is atraumatic, normocephalic. Pupils equal, round. Sclera anicteric. Conjunctiva are clear. Mucous membranes of the mouth are moist. Neck is supple. There is no elevated jugular venous pressure.] bruit is heard. HEART EXAMINATION: Heart S1, S2 normal. No murmur or gallop heard. CHEST EXAMINATION: Lungs are clear to auscultation and precussion. No chest wall tenderness is noted on palpation or with deep breathing. ABDOMEN: Soft, nontender. Bowel sounds are heard. No organomegaly noted. EXTREMITIES: 2+ peripheral pulses with trace evidence of peripheral edema and no calf tenderness noted. NEUROLOGIC patient is awake, alert and oriented -3. . - Labs CBC & Chem 7: 04/21/18 06:18 04/21/18 06:18 Labs: Abnormal Lab Results - Last 24 Hours (Table) 04/21/18 04/21/18 Range/Units :18 06:18 Hgb 10.1 L (11.4-16.0) gm/dL MCV 78.8 L (80.0-100.0) fL MCH 23.2 L (25.0-35.0) pg MCHC 29.5 L (31.0-37.0) g/dL RDW 21.3 H (11.5-15.5) % Chloride 112 H (98-107) mmol/L Creatinine 0.35 L (0.52-1.04) mg/dL Calcium 7.4 L (8.4-10.2) mg/dL Assessment and Plan Plan: Assessment and plan #1 supraventricular tachycardia, terminated with adenosine, patient was initiated on verapamil. #2 acute GI bleed, possible upper with acute blood loss anemia #3 COPD #4 anxiety and depression #5 nicotine dependence #6 neuropathy, patient is wheelchair-bound Plan TSH was obtained which came back to be normal, we will continue patient on current dose of verapamil. GI service and hematology have been consulted. Avoid NSAIDs. Review echocardiogram with Doppler study. DNP note has been reviewed, I agree with a documented findings and plan of care. Patient was seen and examined.
[2018-04-21] MEDS: SODIUM FERRIC GLUCONAT-SUCROSE 125 MG in SODIUM CHLORIDE 0.9% 100 ML IVPB SCH (12:30)
--- NOTE | 2018-04-21 13:10 | CT ---
EXAMINATION TYPE: CT ChestAbdPelvis w con DATE OF EXAM: 04/21/2018 COMPARISON: NONE HISTORY: 58-year-old female Weight loss TECHNIQUE: Contiguous axial scanning of the chest, abdomen, and pelvis performed with IV Contrast, pa tient injected with 100 mL of Isovue 300. Delayed images through the kidneys were obtained. Coronal/s agittal reconstructions performed. CT DLP: 583.6 mGycm Automated exposure control for dose reduction was used. FINDINGS: Chest: 1.7 cm mixed density nodule involving the left thyroid gland can be further evaluated with thyroid ul trasound. Heart is normal size without pericardial effusion. Aorta normal caliber with conventional arch vessel branching anatomy. A few prominent mediastinal lymph nodes measuring up to 1 cm in the right paratracheal region, 8 mm p recarinal region, and 7 mm AP window. Otherwise, no thoracic lymphadenopathy by CT size criteria. There is severe centrilobular emphysema. Minimal spiculated nodularity measuring 6 mm at the right ap ex and additional 6 mm spiculated nodularity posterior left upper lobe, axial image 15 could represen t areas of scarring. Small right pleural effusion with some strandy atelectasis or scarring at the pe ripheral right base. Otherwise, no consolidation or pleural effusion. ABDOMEN: Some surgical clips at the GE junction. Liver measures 22.8 cm, suspected secondary to a Alfred's lobe. No focal liver lesion. Portal venous system appears patent. A prominence to the bile duct likely secondary to postcholecystectomy status. Adrenal glands, kidneys, and pancreas show no gross abnormality. Spleen measures upper limits of normal in size at 13.4 cm, coronal image 44. Small diverticulum of the second portion of the duodenum projecting into the pancreatic head region. There are postsurgical changes of gastrojejunostomy. There is marked distention of the stomach with i ngested debris (measuring 14.27 m Y) with mild wall thickening. Possible narrowing at the gastrojejun al anastomosis. The lower anastomosis is not clearly identified. A few mildly prominent mesenteric lymph nodes measuring up to 7 mm probably reactive/post inflammator y. No significantly enlarged lymphadenopathy is identified. Scattered colonic diverticulosis. Clustered bowel loops. Difficult to accurately identify the ileocec al region. No definite pericolonic inflammatory change seen. Scattered mild stool. Pelvis: Bladder partially urine distended. There is a left lateral rectocele bulging the levator ani musculat ure, refer to axial image 120. Similarly, there is a right lateral enterocele bulging the right levat or ani musculature, axial image 121. Uterus surgically absent. No pelvic lymphadenopathy identified. Neither ovary clearly identified. Bones: Degenerative changes at the hips. Osteopenia. Spinal stimulator array centered along the mid thoracic spinal canal. No osseous destructive process. IMPRESSION: 1. COPD WITH ADVANCED EMPHYSEMA. THERE IS A TRACE RIGHT PLEURAL EFFUSION WITH ADJACENT ATELECTASIS VE RSUS PLEURAL PARENCHYMAL SCARRING AT THE RIGHT BASE. 2. A COUPLE SMALL SPICULATED NODULES IN THE LUNGS MEASURING 6 MM COULD REPRESENT AREAS OF SCARRING. S MALL EARLY NEOPLASMS NOT EXCLUDED AT THIS TIME. 3 MONTH FOLLOW-UP CT CHEST RECOMMENDED. 3. STATUS POST GASTROJEJUNOSTOMY. THE STOMACH IS MARKEDLY DISTENDED WITH INGESTED MATERIAL AND THERE IS MILD WALL THICKENING THAT COULD REPRESENT GASTRITIS. ORAL CONTRAST HAS PROGRESSED ACROSS THE ANAST OMOSIS. CORRELATE TO EXCLUDE AN IMPACTED FOOD BOLUS (MEASURING NEARLY 14 CM WIDE) OR A RELATIVE ANAST OMOTIC STENOSIS. 5. COLONIC DIVERTICULOSIS. NO FINDINGS OF ACUTE DIVERTICULITIS. 6. LEFT LATERAL RECTOCELE AND A RIGHT LATERAL ENTEROCELE BULGING THE LEVATOR ANI MUSCULATURE.
--- NOTE | 2018-04-21 19:59 | PN ---
PROGRESS NOTE DATE OF SERVICE: 04/21/2018 This 58-year-old woman who was admitted with acute GI bleed also had upper GI bleeding and blood-loss anemia. The patient had a CT scan of the abdomen and pelvis that showed multiple findings, including gastrojejunostomy as well as spiculated areas of small nodules in the lung and distention of the stomach with ingested material, possibly gastritis, and impacted food bolus; anastomotic stenosis cannot be ruled out. Colonic diverticula was also noted. The patient is being closely monitored. Gastroenterology is planning endoscopy. No chest pain. No palpitations. No fever. On exam, alert and oriented x3. Pulse is 66, blood pressure 109/72, respiration 18, temperature 97.2, pulse ox 97% on room air. HEENT: Conjunctivae normal. NECK: No jugular venous distention. CARDIOVASCULAR SYSTEM: S1, S2 muffled. RESPIRATORY SYSTEM: Breath sounds diminished at the bases. No rhonchi. No crackles. ABDOMEN: Soft, non-tender. No mass palpable. LEGS: No edema. No swelling. NERVOUS SYSTEM: No focal deficit. LABS: WBC 5.9, hemoglobin 10.1. ASSESSMENT: 1. Acute upper gastrointestinal bleeding, possibly upper with acute blood loss anemia with relative hypotension, status post multiple blood transfusions. 2. Possible malnutrition secondary to partial gastrectomy and gastrojejunostomy. 3. Rule out food bolus or food bezoar or anastomotic stenosis. 4. Multiple abnormalities on the CT scan of the abdomen and pelvis. 5. Microcytosis. 6. Peripheral neuropathy. 7. Gait dysfunction. 8. Chronic obstructive pulmonary disease. 9. Degenerative joint disease. 10.History of gastric ulcer. 11.History of cholecystectomy. 12.Anxiety, depression. 13.History of continued ongoing nicotine dependence. RECOMMENDATIONS AND DISCUSSION: I recommend to continue current medication, continue symptomatic treatment. Otherwise at this time repeat labs. Repeat CBC. Gastroenterology consultation. Endoscopies per Gastroenterology. Prognosis guarded because of multiple complex medical issues. Further recommendations to follow. MMODL / IJN: [id number] /
[2018-04-21] MEDS: CHOLECALCIFEROL 1,000 UNIT TAB PO SCH (20:08)
[2018-04-22] MEDS: ACETAMINOPHEN TAB 500 MG TAB PO PRN ×3 (00:01→14:42)
[2018-04-22 06:11] VITALS: RESP 18
[2018-04-22 06:17] LABS: Anisocytosis Moderate; Basophils % (A) 1 %; Eosinophils # (A) 0.1 k/uL (0-0.7); Eosinophils % (A) 1 %; HCT 35.9 % (34.0-46.0); HGB 10.5 gm/dL (11.4-16.0); Hypochromasia Marked; Lymphocytes # (A) 1.4 k/uL (1.0-4.8); Lymphocytes % (A) 24 %; MCH 22.8 pg (25.0-35.0); MCHC 29.3 g/dL (31.0-37.0); MCV 77.6 fL (80.0-100.0); Mean Platelet Volume 6.7; Microcytosis Moderate; Monocytes # (A) 0.4 k/uL (0-1.0); Monocytes % (A) 7 %; Neutrophils # (A) 3.8 k/uL (1.3-7.7); Neutrophils % (A) 64 %; Platelet Count 285 k/uL (150-450); Poikilocytosis Marked; RBC 4.63 m/uL (3.80-5.40); RDW 21.7 % (11.5-15.5); WBC 5.9 k/uL (3.8-10.6)
[2018-04-22 06:27] LABS: Anion Gap 4 mmol/L; Blood Urea Nitrogen 5 mg/dL (7-17); Calcium 7.9 mg/dL (8.4-10.2); Carbon Dioxide 23 mmol/L (22-30); Chloride 112 mmol/L (98-107); Glucose 88 mg/dL (74-99); Potassium 4.1 mmol/L (3.5-5.1); Sodium 139 mmol/L (137-145)
[2018-04-22] MEDS: SODIUM FERRIC GLUCONAT-SUCROSE 125 MG in SODIUM CHLORIDE 0.9% 100 ML IVPB SCH (08:44)
[2018-04-22] MEDS ORDERED: PROPOFOL 10 MG/ML 20 ML VIAL IV ONE (10:17)
[2018-04-22] MEDS ORDERED: LIDOCAINE 1% INJ 10MG/ML (20 ML MDV) ONE (10:17)
[2018-04-22] MEDS ORDERED: IV FLUID CONTINUATION 1,000 ML IV ONE (10:22)
--- NOTE | 2018-04-22 10:57 | P.PCN ---
Date of Procedure: 04/22/18 Procedure(s) Performed: Procedure: Esophagogastroscopy and dilation of the gastric outlet using the Microvasive ezcpkrz-ema-cdsuz balloon dilator size 8-10 mm. Preoperative diagnosis: Symptomatic anemia and suspected GI bleeding. Postoperative diagnosis: 1. S/P partial gastric resection with stenosis of the anastomosis and retention of undigested food in the gastric remnant. 2. Gastritis of the gastric remnant but no spontaneous bleeding. 3. Microvasive omgdqgw-goa-rbdhp balloon dilators size 8-10 mm was used to dilate the gastric outlet. Preparation and sedation: Was provided by anesthesia. Brief clinical history: The patient is a 58-year-old female who presented to the emergency room with palpitations and was found to have anemia with a hemoglobin of 6.5. The patient received 2 units of packed cells and feels improved. Her hemoglobin has stabilized around 10.1. The patient has history of peptic ulcer disease and had more than two thirds of her stomach removed in the past. She apparently had issues with anemia and has multiple evaluations in the past including upper endoscopies and colonoscopies. She denied any hematemesis or hematochezia denied dysphagia, odynophagia or abdominal pains. Other details are summarized in the history and physical and dictated consultation and progress notes. Procedure: With the patient on her left lateral decubitus position and after informed consent and adequate sedation, I passed the Olympus-GIF 160 video upper endoscope through the cricopharyngeus down the esophagus. The esophagus appeared healthy with no evidence of esophagitis or complicated reflux disease. The endoscope was then advanced into the gastric remnant. The patient had prior partial gastric resection. There was retained undigested food in the stomach and the stomach showed friability and erythema as well as multiple small ulcers and erosions not spontaneously bleeding. The anastomosis area was identified and there was an almost pin hole-opening at the anastomotic site. I used the pyloric channel Microvasive balloon dilator size 8-10 mm and I directed it through the anastomotic area and inflated it in a stepwise fashion up to 10 mm. The patient tolerated the procedure well and did not have any immediate complications. Plan: The patient was reassured. Will keep on clear liquids. I anticipate she may require further dilation of the gastric outlet before she is consistently passing the ingested food through into the small intestine. I will discuss with you.
[2018-04-22] MEDS: CITALOPRAM HYDROBROMIDE 20 MG TAB PO SCH (11:05)
[2018-04-22] MEDS: FUROSEMIDE 40 MG TAB PO SCH (11:05)
[2018-04-22] MEDS: GABAPENTIN 300 MG CAP PO SCH ×3 (11:05→18:02)
[2018-04-22] MEDS: PANTOPRAZOLE 40 MG/10 ML VIAL IV SCH (11:06)
[2018-04-22] MEDS: VERAPAMIL 40 MG TAB PO SCH ×2 (11:06→18:02)
[2018-04-22] MEDS: POTASSIUM CHLORIDE ER 10 MEQ TAB.ER.PRT PO SCH (11:06)
[2018-04-22] MEDS: SODIUM CHLORIDE 0.9% 1,000 ML IV SCH (13:01)
--- NOTE | 2018-04-22 13:34 | P.PN ---
Subjective Progress Note Date: 04/22/18 This is a 58-year-old female who presented to the hospital with supraventricular tachycardia and symptoms of palpitations. Patient was given adenosine with termination of the tachycardia. Patient was also found on admission here to be significantly anemic, requiring total of 4 units of blood transfusion. As an outpatient she states she recently also had a blood transfusion. Her blood pressure this morning 102/58 heart rate in the 60s, temperature 97.8. White blood cell count 5.9, hemoglobin 10.1, platelet count 271. Sodium 139, potassium 4.2, BUN 7, creatinine 0.35. TSH 1.9. Magnesium 1.9. At the time of my examination this morning, patient is sitting up in the chair at bedside, appears to be weak however she states she does not feel weak, and she denies palpitations dizziness or lightheadedness. Hematology and GI service have been consulted. 04/22/2018 Patient was seen and examined this morning, no further episodes of SVT noted on the monitor. Patient underwent EGD today to Dr. Higginbotham, revealed status post partial gastric resection with stenosis of the anastomosis and retention of undigested food in the gastric remnant. Gastritis of the gastric remnant been no spontaneous bleeding. Hemodynamically she has been stable. Hemoglobin today is 10.5, sodium 139, potassium 4.1, BUN 5, creatinine 0.3. Objective - Vital Signs Vital signs: Vital Signs Temp 98.8 F 04/22/18 08:00 Pulse 73 04/22/18 08:00 Resp 18 04/22/18 08:00 BP 110/60 04/22/18 08:00 Pulse Ox 94 L 04/22/18 08:00 Intake & Output 04/21/18 04/22/18 04/22/18 18:59 06:59 18:59 Intake Total 1412 200 350 Output Total 1600 800 Balance -188 -600 350 Weight 58.5 kg Intake: IV 750 250 Sodium Chloride 0.9% 1, 750 150 000 ml @ 75 mls/hr IV . [id number] [facility] Rx#:[id number] Intake, IV Titration 100 100 Amount Sodium Ferric Gluconat- 100 100 Sucrose 125 mg In Sodium Chloride 0.9% 100 ml @ 100 mls/hr IVPB DAILY [facility] Rx#:[id number] Oral 562 200 Output: Urine 1600 800 Other: Voiding Method Bedside Commode # Voids 4 2 1 # Bowel Movements 1 1 - Exam PHYSICAL EXAMINATION: GENERAL: 58-year-old female, frail, in no apparent distress at the time of my examination HEENT: Head is atraumatic, normocephalic. Pupils equal, round. Sclera anicteric. Conjunctiva are clear. Mucous membranes of the mouth are moist. Neck is supple. There is no elevated jugular venous pressure.] bruit is heard. HEART EXAMINATION: Heart S1, S2 normal. No murmur or gallop heard. CHEST EXAMINATION: Lungs are clear to auscultation and precussion. No chest wall tenderness is noted on palpation or with deep breathing. ABDOMEN: Soft, nontender. Bowel sounds are heard. No organomegaly noted. EXTREMITIES: 2+ peripheral pulses with trace evidence of peripheral edema and no calf tenderness noted. NEUROLOGIC patient is awake, alert and oriented -3. . - Labs CBC & Chem 7: 04/22/18 05:43 04/22/18 05:43 Labs: Abnormal Lab Results - Last 24 Hours (Table) 04/21/18 04/22/18 04/22/18 Range/Units 06:15 05:43 05:43 Hgb 10.5 L (11.4-16.0) gm/dL MCV 77.6 L (80.0-100.0) fL MCH 22.8 L (25.0-35.0) pg MCHC 29.3 L (31.0-37.0) g/dL RDW 21.7 H (11.5-15.5) % Chloride 112 H (98-107) mmol/L BUN 5 L (7-17) mg/dL Creatinine 0.32 L (0.52-1.04) mg/dL Calcium 7.9 L (8.4-10.2) mg/dL RBC Folate 988 H (280 - 791) ng/mL Assessment and Plan Plan: Assessment and plan #1 supraventricular tachycardia, terminated with adenosine, patient was initiated on verapamil. #2 acute GI bleed, possible upper with acute blood loss anemia #3 COPD #4 anxiety and depression #5 nicotine dependence #6 neuropathy, patient is wheelchair-bound Plan From cardiology's perspective, we'll recommend to continue the patient on her current dose of verapamil. We will follow her along with you now on an as- needed basis only, please don't hesitate to call if you have any questions at all. DNP note has been reviewed, I agree with a documented findings and plan of care. Patient was seen and examined.
--- NOTE | 2018-04-22 13:36 | P.PN ---
Subjective Progress Note Date: 04/22/18 Principal diagnosis: SVT, anemia Patient seen today in follow-up, she is nothing by mouth for endoscopy as CT scan revealed distention, possibly undigested food bolus that needs to be evaluated/removed. Patient states blood on the draw sheet from the rectal area , denies any open lesions of the skin, rectal pain, patient's lower extremities have neuropathy that caused her difficulty in ambulating, she injures her feet easily. Patient denies painful swallowing, vomiting, difficulty in breathing, indigestion or pain other than in her legs Objective - Vital Signs Vital signs: Vital Signs Temp 98.8 F 04/22/18 08:00 Pulse 73 04/22/18 08:00 Resp 18 04/22/18 08:00 BP 110/60 04/22/18 08:00 Pulse Ox 94 L 04/22/18 08:00 Intake & Output 04/21/18 04/22/18 04/22/18 18:59 06:59 18:59 Intake Total 1412 200 350 Output Total 1600 800 Balance -188 -600 350 Weight 58.5 kg Intake: IV 750 250 Sodium Chloride 0.9% 1, 750 150 000 ml @ 75 mls/hr IV . [id number] [facility] Rx#:[id number] Intake, IV Titration 100 100 Amount Sodium Ferric Gluconat- 100 100 Sucrose 125 mg In Sodium Chloride 0.9% 100 ml @ 100 mls/hr IVPB DAILY [facility] Rx#:[id number] Oral 562 200 Output: Urine 1600 800 Other: Voiding Method Bedside Commode # Voids 4 2 1 # Bowel Movements 1 1 - Exam WD, adequately nourished, NAD, laying in bed, dried blood noted on draw sheet, no blood on brief or on buttocks, skin intact, BLE non-pitting swelling noted, sensitive to the touch, flat affect - Constitutional General appearance: Present: average body habitus, cooperative, mild distress - EENT Eyes: Present: anicteric sclerae - Labs CBC & Chem 7: 04/22/18 05:43 04/22/18 05:43 Labs: Abnormal Lab Results - Last 24 Hours (Table) 04/21/18 04/22/18 04/22/18 Range/Units 06:15 05:43 05:43 Hgb 10.5 L (11.4-16.0) gm/dL MCV 77.6 L (80.0-100.0) fL MCH 22.8 L (25.0-35.0) pg MCHC 29.3 L (31.0-37.0) g/dL RDW 21.7 H (11.5-15.5) % Chloride 112 H (98-107) mmol/L BUN 5 L (7-17) mg/dL Creatinine 0.32 L (0.52-1.04) mg/dL Calcium 7.9 L (8.4-10.2) mg/dL RBC Folate 988 H (280 - 791) ng/mL Assessment and Plan (1) Iron (Fe) deficiency anemia Narrative/Plan: Patient has IV iron ordered 4 doses. Follow-up with Dr. Magallanes in about 4-6 weeks for repeat evaluation of iron deficiency and further supplementation if needed. EGD today, await Gastroenterology's findings Current Visit: Yes Status: Acute Priority: High Code(s): D50.9 - IRON DEFICIENCY ANEMIA, UNSPECIFIED SNOMED Code(s): 48291324 (2) History of gastric surgery Narrative/Plan: Causing patient malabsorption of nutrients such as iron and B12. Iron deficiency confirmed, being supplemented pareterally. B12 studies pending and will supplement with IM injections if found to be low. Current Visit: No Status: Chronic Priority: High Code(s): Z98.890 - OTHER SPECIFIED POSTPROCEDURAL STATES SNOMED Code(s): 321231761 Plan: Pt neuropathy could be related to B12 deficiency, labs pending. Reviewed CT results with patient, nothing notable to account for symptoms, nothing overtly malignant is suspected. Gastroenterology following up on abnormal GI findings. Told pt that there will be follow up on lung nodules, CT chest recommended in 3 months. She verbalized understanding.
[2018-04-22 16:44] VITALS: BP 118/58; PULSE 68; TEMP 98.4
--- NOTE | 2018-04-22 22:35 | DS ---
DISCHARGE SUMMARY DATE OF SERVICE: 04/22/2018 FINAL DIAGNOSES: 1. Acute upper gastrointestinal bleeding, possibly, with acute blood loss anemia related to hypotension, status post multiple transfusions. 2. Status post esophagogastroduodenoscopy showing gastritis, retention of undigested food and gastric outlet obstruction. 3. Possible malnutrition secondary to partial gastrectomy and gastrojejunostomy. 4. Multiple abnormalities on the CT scan of the abdomen and pelvis. 5. Microcytosis. 6. Peripheral neuropathy. 7. Gait dysfunction. 8. Chronic obstructive pulmonary disease. 9. Degenerative joint disease. 10.History of gastric ulcer. 11.History of cholecystectomy. 12.History of anxiety, depression. 13.History of continued ongoing nicotine dependence. DISCHARGE DISPOSITION: The patient will be discharged in stable condition with guarded prognosis. Total time taken 35 minutes. HISTORY OF PRESENT ILLNESS: This 58-year-old woman with a past medical history of multiple medical problems was admitted with acute upper GI bleeding and blood loss anemia. She was transfused. EGD showed findings as mentioned earlier. The patient had gastritis as well as undigested retained food and also some outlet obstruction. Dr. Frias performed dilatation. The patient was closely monitored. Currently hemoglobin is stable at 10.1 and the patient will be discharged in stable condition with guarded prognosis. On exam, vitals are stable. CARDIOVASCULAR SYSTEM: S1, S2 muffled. ABDOMEN: Soft. NERVOUS SYSTEM: No focal deficit. The patient was also seen by multiple consultants, including Cardiology as well as Hematology/Oncology. DISCHARGE ADVICE AND MEDICATIONS: 1. Diet is low residual. 2. Follow up with Dr. Diggs as advised. 3. Follow up with Dr. Frias as recommended. 4. Follow up with Dr. Troy as recommended. 5. Follow up with Dr. Llanos as recommended. 6. Tylenol 500 mg q.6 p.r.n. 7. Vitamin D3 1000 at bedtime. 8. Hold Fiorinal. 9. Celexa 20 mg p.o. daily. 10.Copper 1 tablet at bedtime. 11.Fentanyl patch 25 mcg q.72 hours. 12.Iron sulfate 325 mg p.o. daily. 13.Lasix 40 mg p.o. daily. 14.Gabapentin 900 mg p.o. q.i.d. 15.Prilosec 20 mg p.o. b.i.d. 16.K-Dur 10 mEq p.o. daily. 17.Isoptin 40 mg p.o. b.i.d. Once again, the patient will be discharged in stable condition with guarded prognosis. ASHELY / MARISOL: [id number] / MTDD
== END 2018-04-22 18:24 | disposition home health service (06) | DRG 811 ==
LOC: EC 13:12 → 6ICU 14:21 → EEVIPCON 14:21 → 6SEL 04-20 16:35
PROVIDERS: ADMIT Internal Medicine; ATTEND Internal Medicine
PROC: 30233N1 Transfusion of Nonautologous Red Blood Cells into Peripheral Vein, Percutaneous Approach (ICD-10-PCS; 2018-04-19)
PROC: 0D778ZZ Dilation of Stomach, Pylorus, Via Natural or Artificial Opening Endoscopic (ICD-10-PCS; principal; 2018-04-22 07:30)
DX: D62 Acute posthemorrhagic anemia (principal); K29.01 Acute gastritis with bleeding; I47.1 Supraventricular tachycardia; K91.2 Postsurgical malabsorption, not elsewhere classified; K31.1 Adult hypertrophic pyloric stenosis; G82.20 Paraplegia, unspecified; J44.9 Chronic obstructive pulmonary disease, unspecified; E61.0 Copper deficiency; F32.9 Major depressive disorder, single episode, unspecified; F41.9 Anxiety disorder, unspecified; G62.9 Polyneuropathy, unspecified; E53.8 Deficiency of other specified B group vitamins; F17.200 Nicotine dependence, unspecified, uncomplicated; R26.9 Unspecified abnormalities of gait and mobility; M19.90 Unspecified osteoarthritis, unspecified site; K57.30 Diverticulosis of large intestine without perforation or abscess without bleeding; Z79.899 Other long term (current) drug therapy; Z99.3 Dependence on wheelchair; Z80.52 Family history of malignant neoplasm of bladder; Z87.11 Personal history of peptic ulcer disease; Z90.3 Acquired absence of stomach [part of]; Z90.49 Acquired absence of other specified parts of digestive tract; Z90.710 Acquired absence of both cervix and uterus
CPT/HCPCS: 36415; 43245; 71045; 71260; 74177; 80048; 80053; 81003; 82272; 82550; 82553; 82747; 83735; 83880; 83921; 84100; 84443; 84484; 85025; 85610; 85730; 86850; 86900; 86901; 86920; 93005; 96374; 99291

== ENCOUNTER 2019-03-07 10:54 | Emergency (ER) | payer MEDICARE, OTHER ==
[2019-03-07 11:16] VITALS: TEMP 97.1
[2019-03-07] MEDS ORDERED: SODIUM CHLORIDE 0.9% 1,000 ML IV ONE (11:18)
[2019-03-07] MEDS ORDERED: NALOXONE 0.4 MG/ML 1 ML VIAL IV STA (11:37)
--- NOTE | 2019-03-07 11:54 | ED ---
General Adult HPI - General Chief complaint: Altered Mental Status Stated complaint: leg pain Time Seen by Provider: 03/07/19 11:14 Source: patient, EMS Mode of arrival: EMS Limitations: altered mental status - History of Present Illness Initial comments: 59-year-old female past medical history of fibromyalgia chronic neuropathy of the legs bilaterally presented for bilateral leg pain since 2004. She states of her pain medications at home seem to be helping with her neuropathy. She states that she did hit her leg against the tube yesterday she denies fall with negative x-rays at an outside facility. She states that the pain is typical of her neuropathy she denies increased. Patient states "there has got to be something to treat neuropathy". Patient has a fentanyl patch applied to the skin upon arrival. Patient initially appears drowsy. BP on the lower aspect of normal but easily aroused. - Related Data Home Medications Medication Instructions Recorded Confirmed Copper 1 tab PO HS 09/20/15 04/19/18 Gabapentin 900 mg PO QID 06/19/17 04/19/18 Cholecalciferol [Vitamin D3 (25 1,000 unit PO HS 04/19/18 04/19/18 Mcg = 1000 Iu)] Citalopram Hydrobromide [CeleXA] 20 mg PO DAILY 04/19/18 04/19/18 Ferrous Sulfate [Iron (65 MG 325 mg PO HS 04/19/18 04/19/18 Elemental)] Furosemide [Lasix] 40 mg PO DAILY 04/19/18 04/19/18 Potassium Chloride [K-Tab ER] 10 meq PO DAILY 04/19/18 04/19/18 fentaNYL 25MCG/HR PATCH [Duragesic 1 patch TRANSDERM Q72H 04/19/18 04/19/18 25MCG/HR] Previous Rx's Medication Instructions Recorded Acetaminophen Tab [Tylenol] 500 mg PO Q6HR PRN tab 04/22/18 Omeprazole [PriLOSEC] 20 mg PO AC-BID #60 cap 04/22/18 Verapamil [Isoptin] 40 mg PO BID #60 tab 04/22/18 Allergies Allergy/AdvReac Type Severity Reaction Status Date / Time No Known Allergies Allergy Verified 03/07/19 11:16 Review of Systems ROS Statement: Those systems with pertinent positive or pertinent negative responses have been documented in the HPI. ROS Other: All systems not noted in ROS Statement are negative. Past Medical History Past Medical History: COPD Additional Past Medical History / Comment(s): DEGENERATIVE DISC DISEASE (LUMBAR) WITH PAIN IN HER LEGS & WEAKNESS. WHEELCHAIR BOUND, CAN TRANSFER, stomach ulcers, paraplegic History of Any Multi-Drug Resistant Organisms: None Reported Past Surgical History: Cholecystectomy, Hysterectomy, Orthopedic Surgery Additional Past Surgical History / Comment(s): Stomach ulcer surg x 2. Lt ACL replaced, PATIENT STATES BOTH ACL ARE "BLOWN OUT" FROM FALLS SHE HAS HAD. Past Anesthesia/Blood Transfusion Reactions: Previous Problems w/ Anesthesia Additional Past Anesthesia/Blood Transfusion Reaction / Comment(s): Difficulty waking up after surgery Past Psychological History: Anxiety, Depression Smoking Status: Current every day smoker Past Alcohol Use History: None Reported Past Drug Use History: None Reported - Past Family History Mother Family Medical History: No Reported History General Exam - General Exam Comments Initial Comments: General: The patient is awake and alert, in no distress, and does not appear acutely ill. Eye: +3 mm pupils are equal, round and reactive to light, extra-ocular movements are intact. No nystagmus. There is normal conjunctiva bilaterally. No signs of icterus. Ears, nose, mouth and throat: There are moist mucous membranes and no oral lesions. Neck: The neck is supple, there is no tenderness or JVD. Cardiovascular: There is a regular rate and rhythm. No murmur, rub or gallop is appreciated. Respiratory: Lungs are clear to auscultation, respirations are non-labored, breath sounds are equal. No wheezes, stridor, rales, or rhonchi. Gastrointestinal: Soft, non-distended, non-tender abdomen without masses or organomegaly noted. There is no rebound or guarding present. No CVA tenderness. Bowel sounds are unremarkable. Musculoskeletal: Normal ROM, no tenderness. Strength 5/5. Sensation intact. DP and radial pulses equal bilaterally 2+. Neurological: A&O x 3. CN II-XII intact, There are no obvious motor or sensory deficits. Coordination appears grossly intact. Speech is normal. Skin: Skin is warm and dry and no rashes or lesions are noted. Psychiatric: Cooperative, drowsy but aroused easily. Limitations: altered mental status Course Vital Signs 03/07/19 03/07/19 03/07/19 11:10 11:30 11:41 Temperature 97.1 F L Pulse Rate 71 77 Respiratory 14 22 14 Rate Blood Pressure 105/56 105/56 O2 Sat by Pulse 100 95 Oximetry 03/07/19 03/07/19 03/07/19 12:00 12:30 13:00 Temperature Pulse Rate 82 73 72 Respiratory 20 16 16 Rate Blood Pressure 89/52 108/63 108/63 O2 Sat by Pulse 96 100 99 Oximetry 03/07/19 03/07/19 03/07/19 13:30 14:00 14:30 Temperature Pulse Rate 78 76 75 Respiratory 18 17 16 Rate Blood Pressure 91/54 96/55 102/60 O2 Sat by Pulse 98 99 99 Oximetry 03/07/19 15:16 Temperature 97.1 F L Pulse Rate Respiratory Rate Blood Pressure O2 Sat by Pulse Oximetry - Reevaluation(s) Reevaluation #1: 03/07/19 11:53 Pt drowsy, pt has fentanyl patch in place, pupils are pinpoint. Pt given 0.4 of IVP narcan. Pt is now more alert, orientated. She is angry, had 1 episode of emesis. EKG Findings - EKG Comments: EKG Findings:: A 12-lead EKG was performed and shows the following: Rate is 76bpm, and rhythm is normal sinus. There are normal QRS complexes and normal R- wave progression. ST segments have no elevation or depression, and MI segments appear normal. Ventricular rate 76 bpm, MI interval 128 ms, QRS duration 78 ms, QT/QTC 382/429 ms. Artifact noted on EKG, reviewed by myself and Dr. Maravilla Medical Decision Making - Medical Decision Making Well-appearing 59-year-old female past history of anemia fibromyalgia and chronic neuropathy. Pt states she has been in and out of pain clinics without cure of chronic b/l neuropathy. Pt requesting pain medication although she appears as though she has overdosed with narcotics. Pupils small, decreased respirations and extremely drowsy. I felt this was altered mental status, as I do no know patient baseline. EMS who is familiar with patient state this is patietn baseline. Pt given .4 of narcan and immediately was more responsive and interactive. I feel opiod OD was the cause. CT brain no acute findings. Laboratory studies reveal findings consistent with anemia. EKG no acute findings. Troponin negative. Chest x-ray within normal limits. Patient's urine drug screen was positive for benzodiazepines, marijuana, opioids. Patient is more alert and oriented. At this time feel patient's pain is chronic in nature. I discussed the case attending provider he recommended discharge with outpatient f/u fo repeat CBC. Discussed findings with patient. She is agreeable with d/c pt discharged via EMS transportation. - Lab Data Result diagrams: 03/07/19 11:58 03/07/19 11:58 Lab Results 03/07/19 03/07/19 03/07/19 Range/Units 11:58 11:58 11:58 WBC 11.8 H (3.8-10.6) k/uL RBC 4.56 (3.80-5.40) m/uL Hgb 8.4 L (11.4-16.0) gm/dL Hct 31.3 L (34.0-46.0) % MCV 68.7 L (80.0-100.0) fL MCH 18.4 L (25.0-35.0) pg MCHC 26.7 L (31.0-37.0) g/dL RDW 19.4 H (11.5-15.5) % Plt Count 298 (150-450) k/uL Neutrophils % 86 % Lymphocytes % 8 % Monocytes % 4 % Eosinophils % 0 % Basophils % 0 % Neutrophils # 10.1 H (1.3-7.7) k/uL Lymphocytes # 1.0 (1.0-4.8) k/uL Monocytes # 0.5 (0-1.0) k/uL Eosinophils # 0.0 (0-0.7) k/uL Basophils # 0.0 (0-0.2) k/uL Hypochromasia Marked Poikilocytosis Slight Anisocytosis Slight Microcytosis Marked PT (9.0-12.0) sec INR (<1.2) APTT (22.0-30.0) sec Sodium 139 (137-145) mmol/L Potassium 4.4 (3.5-5.1) mmol/L Chloride 109 H (98-107) mmol/L Carbon Dioxide 24 (22-30) mmol/L Anion Gap 6 mmol/L BUN 11 (7-17) mg/dL Creatinine 0.34 L (0.52-1.04) mg/dL Est GFR (CKD-EPI)AfAm >90 (>60 ml/min/1.73 sqM) Est GFR (CKD-EPI)NonAf >90 (>60 ml/min/1.73 sqM) Glucose 111 H (74-99) mg/dL Calcium 8.0 L (8.4-10.2) mg/dL Total Bilirubin 0.3 (0.2-1.3) mg/dL AST 19 (14-36) U/L ALT 28 (9-52) U/L Alkaline Phosphatase 177 H (38-126) U/L Ammonia <9 (<30) umol/L Troponin I (0.000-0.034) ng/mL Total Protein 5.0 L (6.3-8.2) g/dL Albumin 2.8 L (3.5-5.0) g/dL Urine Color Urine Appearance (Clear) Urine pH (5.0-8.0) Ur Specific Dalton (1.001-1.035) Urine Protein (Negative) Urine Glucose (UA) (Negative) Urine Ketones (Negative) Urine Blood (Negative) Urine Nitrite (Negative) Urine Bilirubin (Negative) Urine Urobilinogen (<2.0) mg/dL Ur Leukocyte Esterase (Negative) Urine Opiates Screen (NotDetected) Ur Oxycodone Screen (NotDetected) Urine Methadone Screen (NotDetected) Ur Propoxyphene Screen (NotDetected) Ur Barbiturates Screen (NotDetected) U Tricyclic Antidepress (NotDetected) Ur Phencyclidine Scrn (NotDetected) Ur Amphetamines Screen (NotDetected) U Methamphetamines Scrn (NotDetected) U Benzodiazepines Scrn (NotDetected) Urine Cocaine Screen (NotDetected) U Marijuana (THC) Screen (NotDetected) 03/07/19 03/07/19 03/07/19 Range/Units 11:58 11:58 Unknown WBC (3.8-10.6) k/uL RBC (3.80-5.40) m/uL Hgb (11.4-16.0) gm/dL Hct (34.0-46.0) % MCV (80.0-100.0) fL MCH (25.0-35.0) pg MCHC (31.0-37.0) g/dL RDW (11.5-15.5) % Plt Count (150-450) k/uL Neutrophils % % Lymphocytes % % Monocytes % % Eosinophils % % Basophils % % Neutrophils # (1.3-7.7) k/uL Lymphocytes # (1.0-4.8) k/uL Monocytes # (0-1.0) k/uL Eosinophils # (0-0.7) k/uL Basophils # (0-0.2) k/uL Hypochromasia Poikilocytosis Anisocytosis Microcytosis PT 10.7 (9.0-12.0) sec INR 1.0 (<1.2) APTT 22.7 (22.0-30.0) sec Sodium (137-145) mmol/L Potassium (3.5-5.1) mmol/L Chloride (98-107) mmol/L Carbon Dioxide (22-30) mmol/L Anion Gap mmol/L BUN (7-17) mg/dL Creatinine (0.52-1.04) mg/dL Est GFR (CKD-EPI)AfAm (>60 ml/min/1.73 sqM) Est GFR (CKD-EPI)NonAf (>60 ml/min/1.73 sqM) Glucose (74-99) mg/dL Calcium (8.4-10.2) mg/dL Total Bilirubin (0.2-1.3) mg/dL AST (14-36) U/L ALT (9-52) U/L Alkaline Phosphatase (38-126) U/L Ammonia (<30) umol/L Troponin I <0.012 (0.000-0.034) ng/mL Total Protein (6.3-8.2) g/dL Albumin (3.5-5.0) g/dL Urine Color Urine Appearance (Clear) Urine pH (5.0-8.0) Ur Specific Dalton (1.001-1.035) Urine Protein (Negative) Urine Glucose (UA) (Negative) Urine Ketones (Negative) Urine Blood (Negative) Urine Nitrite (Negative) Urine Bilirubin (Negative) Urine Urobilinogen (<2.0) mg/dL Ur Leukocyte Esterase (Negative) Urine Opiates Screen Detected H (NotDetected) Ur Oxycodone Screen Detected H (NotDetected) Urine Methadone Screen Not Detected (NotDetected) Ur Propoxyphene Screen Not Detected (NotDetected) Ur Barbiturates Screen Not Detected (NotDetected) U Tricyclic Antidepress Not Detected (NotDetected) Ur Phencyclidine Scrn Not Detected (NotDetected) Ur Amphetamines Screen Not Detected (NotDetected) U Methamphetamines Scrn Not Detected (NotDetected) U Benzodiazepines Scrn Detected H (NotDetected) Urine Cocaine Screen Not Detected (NotDetected) U Marijuana (THC) Screen Detected H (NotDetected) 03/07/19 Range/Units Unknown WBC (3.8-10.6) k/uL RBC (3.80-5.40) m/uL Hgb (11.4-16.0) gm/dL Hct (34.0-46.0) % MCV (80.0-100.0) fL MCH (25.0-35.0) pg MCHC (31.0-37.0) g/dL RDW (11.5-15.5) % Plt Count (150-450) k/uL Neutrophils % % Lymphocytes % % Monocytes % % Eosinophils % % Basophils % % Neutrophils # (1.3-7.7) k/uL Lymphocytes # (1.0-4.8) k/uL Monocytes # (0-1.0) k/uL Eosinophils # (0-0.7) k/uL Basophils # (0-0.2) k/uL Hypochromasia Poikilocytosis Anisocytosis Microcytosis PT (9.0-12.0) sec INR (<1.2) APTT (22.0-30.0) sec Sodium (137-145) mmol/L Potassium (3.5-5.1) mmol/L Chloride (98-107) mmol/L Carbon Dioxide (22-30) mmol/L Anion Gap mmol/L BUN (7-17) mg/dL Creatinine (0.52-1.04) mg/dL Est GFR (CKD-EPI)AfAm (>60 ml/min/1.73 sqM) Est GFR (CKD-EPI)NonAf (>60 ml/min/1.73 sqM) Glucose (74-99) mg/dL Calcium (8.4-10.2) mg/dL Total Bilirubin (0.2-1.3) mg/dL AST (14-36) U/L ALT (9-52) U/L Alkaline Phosphatase (38-126) U/L Ammonia (<30) umol/L Troponin I (0.000-0.034) ng/mL Total Protein (6.3-8.2) g/dL Albumin (3.5-5.0) g/dL Urine Color Yellow Urine Appearance Clear (Clear) Urine pH 6.0 (5.0-8.0) Ur Specific Dalton 1.018 (1.001-1.035) Urine Protein Negative (Negative) Urine Glucose (UA) Negative (Negative) Urine Ketones Negative (Negative) Urine Blood Negative (Negative) Urine Nitrite Negative (Negative) Urine Bilirubin Negative (Negative) Urine Urobilinogen 3.0 (<2.0) mg/dL Ur Leukocyte Esterase Negative (Negative) Urine Opiates Screen (NotDetected) Ur Oxycodone Screen (NotDetected) Urine Methadone Screen (NotDetected) Ur Propoxyphene Screen (NotDetected) Ur Barbiturates Screen (NotDetected) U Tricyclic Antidepress (NotDetected) Ur Phencyclidine Scrn (NotDetected) Ur Amphetamines Screen (NotDetected) U Methamphetamines Scrn (NotDetected) U Benzodiazepines Scrn (NotDetected) Urine Cocaine Screen (NotDetected) U Marijuana (THC) Screen (NotDetected) Disposition Clinical Impression: Chronic leg pain, Neuropathy, Narcotic abuse Disposition: HOME SELF-CARE Condition: Good Instructions (If sedation given, give patient instructions): Polysubstance Abuse (ED), Narcotic Use Disorder (ED) Additional Instructions: Please use medication as discussed. Please follow-up with family doctor in the next 2 days.. Please return to emergency room if the symptoms increase or worsen or for any other concerns. Is patient prescribed a controlled substance at d/c from ED?: No Referrals: Hua Diggs MD [Primary Care Provider] - 1-2 days Time of Disposition: 14:08
[2019-03-07 12:21] LABS: Anisocytosis Slight; Basophils % (A) 0 %; Eosinophils % (A) 0 %; HCT 31.3 % (34.0-46.0); HGB 8.4 gm/dL (11.4-16.0); Hypochromasia Marked; Lymphocytes % (A) 8 %; MCH 18.4 pg (25.0-35.0); MCHC 26.7 g/dL (31.0-37.0); MCV 68.7 fL (80.0-100.0); Mean Platelet Volume 7.1; Microcytosis Marked; Monocytes # (A) 0.5 k/uL (0-1.0); Monocytes % (A) 4 %; Neutrophils # (A) 10.1 k/uL (1.3-7.7); Neutrophils % (A) 86 %; Platelet Count 298 k/uL (150-450); Poikilocytosis Slight; RBC 4.56 m/uL (3.80-5.40); RDW 19.4 % (11.5-15.5); WBC 11.8 k/uL (3.8-10.6)
[2019-03-07 12:25] LABS: Partial Thromboplastin Time 22.7 sec (22.0-30.0); Prothrombin Time 10.7 sec (9.0-12.0)
[2019-03-07 12:33] LABS: ALT 28 U/L (9-52); AST 19 U/L (14-36); Albumin 2.8 g/dL (3.5-5.0); Alkaline Phosphatase 177 U/L (38-126); Anion Gap 6 mmol/L; Blood Urea Nitrogen 11 mg/dL (7-17); Carbon Dioxide 24 mmol/L (22-30); Chloride 109 mmol/L (98-107); Glucose 111 mg/dL (74-99); Potassium 4.4 mmol/L (3.5-5.1); Sodium 139 mmol/L (137-145); Total Bilirubin 0.3 mg/dL (0.2-1.3)
[2019-03-07 12:45] LABS: Appearance,Urine Clear (Clear); Bilirubin,Urine Negative (Negative); Blood,Urine Negative (Negative); Color,Urine Yellow; Glucose,Urine (UA) Negative (Negative); Ketones,Urine Negative (Negative); Leukocyte Esterase,Urine Negative (Negative); Nitrite,Urine Negative (Negative); Protein,Urine Negative (Negative); Specific Gravity,Urine 1.018 (1.001-1.035)
--- NOTE | 2019-03-07 12:50 | CT ---
EXAMINATION TYPE: CT brain wo con DATE OF EXAM: 03/07/2019 COMPARISON: NONE HISTORY: altered mental status CT DLP: 1044.4 mGycm Automated exposure control for dose reduction was used. FINDINGS: There are mild, generalized changes of sulcal prominence and ventriculomegaly, compatible with atroph y. This is most marked in the frontal lobes bilaterally. There is diffuse periventricular white matte r lucency. This is compatible with chronic white matter ischemic change. 3 mm, rounded area of increa sed density in the anterior aspect of the third ventricle may represent a tiny colloid cyst. No other focal lesion, mass effect or midline shift is seen. I do not see evidence of intracranial blood. Visualized portions of the paranasal sinuses and mastoids are clear. The bony calvarium is intact. IMPRESSION: 1. NO ACUTE INTRACRANIAL ABNORMALITY. 2. MILD ATROPHY, MOST MARKED IN THE FRONTAL LOBES CAN BE SEEN IN PICKS DISEASE. 3. CHRONIC WHITE MATTER ISCHEMIC CHANGE. 4. I COULD NOT EXCLUDE A 3 MM COLLOID CYST IN THE ANTERIOR THIRD VENTRICLE.
[2019-03-07 12:53] VITALS: RESP 16
--- NOTE | 2019-03-07 12:53 | XR ---
EXAMINATION TYPE: XR chest 2V DATE OF EXAM: 03/07/2019 HISTORY: altered mental status. REFERENCE: Previous study dated 04/19/2018. FINDINGS: A pain stimulator projects over the lower thoracic spine. The heart is mildly enlarged. There is some unfolding of the thoracic aorta. There are chronic inters titial changes present in the lungs. Pleural spaces are clear. IMPRESSION: 1. MILD CARDIOMEGALY. 2. CHRONIC INTERSTITIAL CHANGE. 3. PLEASE CORRELATE FOR COPD.
[2019-03-07 12:57] LABS: Urn Cannabinoid Scrn Detected (NotDetected)
[2019-03-07 12:58] LABS: Amphetamine Screen,Urine Not Detected (NotDetected); Barbiturate Screen,Urine Not Detected (NotDetected); Benzodiazepines Screen,Urine Detected (NotDetected); Cocaine Screen,Urine Not Detected (NotDetected); Methadone Screen, Urine Not Detected (NotDetected); Opiate Screen,Urine Detected (NotDetected); Oxycodone Screen, Urine Detected (NotDetected); Phencyclidine Screen,Urine Not Detected (NotDetected); Tricyclic Antidepressant,Urine Not Detected (NotDetected)
[2019-03-07 14:32] VITALS: BP 102/60; PULSE 75
== END 2019-03-07 15:17 | disposition home or self-care (01) ==
LOC: EC 10:54
DX: G89.29 Other chronic pain (principal); G62.9 Polyneuropathy, unspecified; F11.10 Opioid abuse, uncomplicated; R41.82 Altered mental status, unspecified; D64.9 Anemia, unspecified; M79.7 Fibromyalgia; F17.200 Nicotine dependence, unspecified, uncomplicated; F41.9 Anxiety disorder, unspecified; F32.9 Major depressive disorder, single episode, unspecified; Z79.891 Long term (current) use of opiate analgesic; Z79.899 Other long term (current) drug therapy
CPT/HCPCS: 36415; 93005; 80053; 82140; 84484; 85025; 85610; 85730; 81003; 80306; 71046; 70450; 99285; 96374; 96361; J2310

== ENCOUNTER 2019-05-11 14:11 | Emergency (ER) | payer MEDICARE, OTHER ==
[2019-05-11] MEDS ORDERED: SODIUM CHLORIDE 0.9% 1,000 ML IV STA (14:13)
[2019-05-11 14:41] LABS: Anisocytosis Moderate; Basophils # (A) 0.1 k/uL (0-0.2); Basophils % (A) 1 %; Eosinophils # (A) 0.2 k/uL (0-0.7); Eosinophils % (A) 3 %; HCT 30.4 % (34.0-46.0); HGB 8.9 gm/dL (11.4-16.0); Hypochromasia Marked; Lymphocytes # (A) 1.3 k/uL (1.0-4.8); Lymphocytes % (A) 23 %; MCH 21.2 pg (25.0-35.0); MCHC 29.3 g/dL (31.0-37.0); MCV 72.2 fL (80.0-100.0); Mean Platelet Volume 7.4; Microcytosis Marked; Monocytes # (A) 0.3 k/uL (0-1.0); Monocytes % (A) 6 %; Neutrophils # (A) 3.9 k/uL (1.3-7.7); Neutrophils % (A) 67 %; Platelet Count 309 k/uL (150-450); RBC 4.21 m/uL (3.80-5.40); RDW 22.2 % (11.5-15.5); WBC 5.9 k/uL (3.8-10.6)
[2019-05-11 15:00] LABS: ALT 24 U/L (9-52); AST 37 U/L (14-36); African American GFR (CKD) >90 (>60 ml/min/1.73 sqM); Albumin 2.8 g/dL (3.5-5.0); Alkaline Phosphatase 131 U/L (38-126); Anion Gap 8 mmol/L; Blood Urea Nitrogen 12 mg/dL (7-17); Calcium 7.9 mg/dL (8.4-10.2); Carbon Dioxide 22 mmol/L (22-30); Chloride 108 mmol/L (98-107); Glucose 98 mg/dL (74-99); Magnesium 1.9 mg/dL (1.6-2.3); Potassium 4.1 mmol/L (3.5-5.1); Sodium 138 mmol/L (137-145); Total Bilirubin 0.3 mg/dL (0.2-1.3); Total Protein 5.2 g/dL (6.3-8.2)
[2019-05-11 15:01] LABS: INR 0.9 (<1.2)
--- NOTE | 2019-05-11 15:08 | ED ---
Recheck HPI - General Chief Complaint: Recheck/Abnormal Lab/Rx Stated Complaint: Needs blood transfusion Time Seen by Provider: 05/11/19 14:13 Source: patient, EMS, RN notes reviewed, old records reviewed Mode of arrival: EMS Limitations: no limitations - History of Present Illness Initial Comments: This is a 51-year-old female the ER for evaluation. Patient poor historian, patient coming in for evaluation of low hemoglobin possible need for blood tr ansfusion. Patient does admit to weakness headache chest pain shortness breath or abdominal pain no blood in stool no nausea vomiting of blood. No blood thinners. She does have prior history of any transfusion MD Complaint: abnormal lab (Low hemoglobin) -: unknown Returns Today for: Called Because of Abnormal Lab/Test Symptoms Since Prior Visit: no new symptoms Context: called for abnormal lab result Associated Symptoms: none - Related Data Home Medications Medication Instructions Recorded Confirmed Gabapentin 600 mg PO Q8H 06/19/17 05/11/19 Ferrous Sulfate [Iron (65 MG 325 mg PO DAILY 04/19/18 05/11/19 Elemental)] Furosemide [Lasix] 40 mg PO DAILY 04/19/18 05/11/19 Potassium Chloride [K-Tab ER] 10 meq PO DAILY 04/19/18 05/11/19 ALPRAZolam [Xanax] 0.25 mg PO Q8H PRN 05/11/19 05/11/19 Acetaminophen [Tylenol] 650 mg PO Q6H PRN 05/11/19 05/11/19 Calcium Carbonate/Vitamin D3 1 tab PO HS 05/11/19 05/11/19 [Calcium 600-Vit D3 800 Caplet] Citalopram Hydrobromide [CeleXA] 40 mg PO DAILY 05/11/19 05/11/19 Cyanocobalamin [Vitamin B-12] 500 mcg PO DAILY 05/11/19 05/11/19 Ensure 1 can PO TID@0700,1200,1700 05/11/19 05/11/19 Folic Acid 0.4 mg PO DAILY 05/11/19 05/11/19 Ibuprofen [Motrin] 600 mg PO Q6H PRN 05/11/19 05/11/19 Nicotine 21Mg/24Hr Patch [Habitrol 1 patch TRANSDERM DAILY 05/11/19 05/11/19 21Mg/24Hr Patch] Omeprazole [PriLOSEC] 20 mg PO DAILY 05/11/19 05/11/19 Ondansetron Odt [Zofran Odt] 4 mg PO TID PRN 05/11/19 05/11/19 Polyethylene Glycol 3350 [Miralax] 17 gm PO DAILY PRN 05/11/19 05/11/19 Sennosides [Senna] 17.2 mg PO BID 05/11/19 05/11/19 oxyCODONE-APAP 7.5-325MG [Percocet 1 tab PO Q6H PRN 05/11/19 05/11/19 7.5-325 mg] Allergies Allergy/AdvReac Type Severity Reaction Status Date / Time zinc Allergy Unknown Verified 05/11/19 14:33 Review of Systems ROS Statement: Those systems with pertinent positive or pertinent negative responses have been documented in the HPI. ROS Other: All systems not noted in ROS Statement are negative. Past Medical History Past Medical History: COPD Additional Past Medical History / Comment(s): DEGENERATIVE DISC DISEASE (LUMBAR) WITH PAIN IN HER LEGS & WEAKNESS. WHEELCHAIR BOUND, CAN TRANSFER, stomach ulcers, paraplegic History of Any Multi-Drug Resistant Organisms: None Reported Past Surgical History: Cholecystectomy, Hysterectomy, Orthopedic Surgery Additional Past Surgical History / Comment(s): Stomach ulcer surg x 2. Lt ACL replaced, PATIENT STATES BOTH ACL ARE "BLOWN OUT" FROM FALLS SHE HAS HAD. Past Anesthesia/Blood Transfusion Reactions: Previous Problems w/ Anesthesia Additional Past Anesthesia/Blood Transfusion Reaction / Comment(s): Difficulty waking up after surgery Past Psychological History: Anxiety, Depression Smoking Status: Current some day smoker Past Alcohol Use History: None Reported Past Drug Use History: None Reported - Past Family History Mother Family Medical History: No Reported History General Exam Limitations: no limitations General appearance: alert, in no apparent distress Head exam: Present: atraumatic, normocephalic, normal inspection Eye exam: Present: normal appearance, PERRL, EOMI. Absent: scleral icterus, conjunctival injection, periorbital swelling ENT exam: Present: normal exam, mucous membranes moist Neck exam: Present: normal inspection. Absent: tenderness, meningismus, lymphadenopathy Respiratory exam: Present: normal lung sounds bilaterally. Absent: respiratory distress, wheezes, rales, rhonchi, stridor Cardiovascular Exam: Present: regular rate, normal rhythm, normal heart sounds. Absent: systolic murmur, diastolic murmur, rubs, gallop, clicks GI/Abdominal exam: Present: soft, normal bowel sounds. Absent: distended, tenderness, guarding, rebound, rigid Extremities exam: Present: normal inspection, full ROM, normal capillary refill. Absent: tenderness, pedal edema, joint swelling, calf tenderness Back exam: Present: normal inspection Neurological exam: Present: alert, oriented X3, CN II-XII intact Psychiatric exam: Present: normal affect, normal mood Skin exam: Present: warm, dry, intact, normal color. Absent: rash Course Vital Signs 05/11/19 05/11/19 05/11/19 14:13 14:30 15:00 Temperature 98.6 F Pulse Rate 62 62 62 Respiratory 18 14 15 Rate Blood Pressure 102/63 102/63 106/66 O2 Sat by Pulse 98 98 99 Oximetry - Reevaluation(s) Reevaluation #1: 05/11/19 15:17 Medical records reviewed Medical Decision Making - Medical Decision Making 51 female the ER for evaluation, patient presents forevaluation regarding low hemoglobin. Hemoglobin is improved here in the ER, no active bleeding noted patient can be discharged - Lab Data Result diagrams: 05/11/19 14:20 05/11/19 14:20 Lab Results 05/11/19 05/11/19 05/11/19 Range/Units 14:20 14:20 14:20 WBC 5.9 (3.8-10.6) k/uL RBC 4.21 (3.80-5.40) m/uL Hgb 8.9 L (11.4-16.0) gm/dL Hct 30.4 L (34.0-46.0) % MCV 72.2 L (80.0-100.0) fL MCH 21.2 L (25.0-35.0) pg MCHC 29.3 L (31.0-37.0) g/dL RDW 22.2 H (11.5-15.5) % Plt Count 309 (150-450) k/uL Neutrophils % 67 % Lymphocytes % 23 % Monocytes % 6 % Eosinophils % 3 % Basophils % 1 % Neutrophils # 3.9 (1.3-7.7) k/uL Lymphocytes # 1.3 (1.0-4.8) k/uL Monocytes # 0.3 (0-1.0) k/uL Eosinophils # 0.2 (0-0.7) k/uL Basophils # 0.1 (0-0.2) k/uL Hypochromasia Marked Anisocytosis Moderate Microcytosis Marked PT 10.0 (9.0-12.0) sec INR 0.9 (<1.2) APTT 20.3 L (22.0-30.0) sec Sodium 138 (137-145) mmol/L Potassium 4.1 (3.5-5.1) mmol/L Chloride 108 H (98-107) mmol/L Carbon Dioxide 22 (22-30) mmol/L Anion Gap 8 mmol/L BUN 12 (7-17) mg/dL Creatinine 0.32 L (0.52-1.04) mg/dL Est GFR (CKD-EPI)AfAm >90 (>60 ml/min/1.73 sqM) Est GFR (CKD-EPI)NonAf >90 (>60 ml/min/1.73 sqM) Glucose 98 (74-99) mg/dL Calcium 7.9 L (8.4-10.2) mg/dL Phosphorus 5.0 H (2.5-4.5) mg/dL Magnesium 1.9 (1.6-2.3) mg/dL Total Bilirubin 0.3 (0.2-1.3) mg/dL AST 37 H (14-36) U/L ALT 24 (9-52) U/L Alkaline Phosphatase 131 H (38-126) U/L Troponin I (0.000-0.034) ng/mL Total Protein 5.2 L (6.3-8.2) g/dL Albumin 2.8 L (3.5-5.0) g/dL Blood Type Blood Type Recheck Antibody Screen Spec Expiration Date 05/11/19 05/11/19 Range/Units 14:20 14:20 WBC (3.8-10.6) k/uL RBC (3.80-5.40) m/uL Hgb (11.4-16.0) gm/dL Hct (34.0-46.0) % MCV (80.0-100.0) fL MCH (25.0-35.0) pg MCHC (31.0-37.0) g/dL RDW (11.5-15.5) % Plt Count (150-450) k/uL Neutrophils % % Lymphocytes % % Monocytes % % Eosinophils % % Basophils % % Neutrophils # (1.3-7.7) k/uL Lymphocytes # (1.0-4.8) k/uL Monocytes # (0-1.0) k/uL Eosinophils # (0-0.7) k/uL Basophils # (0-0.2) k/uL Hypochromasia Anisocytosis Microcytosis PT (9.0-12.0) sec INR (<1.2) APTT (22.0-30.0) sec Sodium (137-145) mmol/L Potassium (3.5-5.1) mmol/L Chloride (98-107) mmol/L Carbon Dioxide (22-30) mmol/L Anion Gap mmol/L BUN (7-17) mg/dL Creatinine (0.52-1.04) mg/dL Est GFR (CKD-EPI)AfAm (>60 ml/min/1.73 sqM) Est GFR (CKD-EPI)NonAf (>60 ml/min/1.73 sqM) Glucose (74-99) mg/dL Calcium (8.4-10.2) mg/dL Phosphorus (2.5-4.5) mg/dL Magnesium (1.6-2.3) mg/dL Total Bilirubin (0.2-1.3) mg/dL AST (14-36) U/L ALT (9-52) U/L Alkaline Phosphatase (38-126) U/L Troponin I <0.012 (0.000-0.034) ng/mL Total Protein (6.3-8.2) g/dL Albumin (3.5-5.0) g/dL Blood Type A Positive Blood Type Recheck No Antibody Screen NEGATIVE Spec Expiration Date 05/14/2019 - 2319 Disposition Clinical Impression: Anemia, Iron (Fe) deficiency anemia, Microcytic anemia Disposition: HOME SELF-CARE Condition: Good Instructions (If sedation given, give patient instructions): Anemia (ED) Is patient prescribed a controlled substance at d/c from ED?: No Referrals: Albert Hinkle MD [Primary Care Provider] - 1-2 days
[2019-05-11 15:10] LABS: Partial Thromboplastin Time 20.3 sec (22.0-30.0)
[2019-05-11 17:09] VITALS: BP 102/61; PULSE 96; RESP 18; TEMP 98.7
== END 2019-05-11 17:09 | disposition home or self-care (01) ==
LOC: EC 14:11
DX: D50.9 Iron deficiency anemia, unspecified (principal); G82.20 Paraplegia, unspecified; F32.9 Major depressive disorder, single episode, unspecified; F41.9 Anxiety disorder, unspecified; F17.200 Nicotine dependence, unspecified, uncomplicated; Z91.048 Other nonmedicinal substance allergy status; Z79.899 Other long term (current) drug therapy; Z99.3 Dependence on wheelchair; Z96.652 Presence of left artificial knee joint
CPT/HCPCS: 36415; 80053; 83735; 84100; 84484; 85025; 85610; 85730; 86850; 86900; 86901; 93005; 96360; 96361; 99284